=== PATIENT | male | born 1935 | race Caucasian/White ===

== ENCOUNTER → 2016-07-27 | Outpatient (CLI) | payer BC ==
[~2016-07-27] MED LIST: ASPEC81 PO; ATOR-22 PO; OMEG10007 PO; SPECTAB PO
[2016-07-27 14:23] LABS: CHOLESTEROL/HDL RATIO 3.5
== END | disposition home or self-care (01) ==
LOC: C.LABPVFM 08:37
PROVIDERS: ATTEND Nurse Practitioner
DX: R41.3 Other amnesia (principal); E55.9 Vitamin D deficiency, unspecified

== ENCOUNTER → 2016-09-28 | Outpatient (CLI) | payer BC ==
--- NOTE | 2016-09-28 10:02 | DIAGNOSTIC IMAGING REPORT ---
BILATERAL CAROTID DOPPLER STUDY HISTORY: R41.3 Memory loss or impairments COMPARISON: None. TECHNIQUE: Real-time, grayscale, and color Doppler sonography of the carotid arteries was performed. Imaging reviewed in the transverse and longitudinal planes. All measurements were calculated based on NASCET criteria. FINDINGS: Antegrade flow is seen in the bilateral vertebral arteries. The brachial pressures are hemodynamically similar. Mild calcified plaque within the bilateral carotid bifurcations. The peak systolic velocity within the right ICA is 79 cm/s. The right systolic ratio is 0.8. The peak systolic velocity within the left ICA is 71 cm/s. The left systolic ratio is 0.7. IMPRESSION: No hemodynamically significant stenosis seen within the carotid arteries. Electronically signed by: Joesph Oliva M.D. 09/28/2016 10:00 AM Dictated Date/Time: 09/28/2016 9:59 AM
== END | disposition home or self-care (01) ==
LOC: C.ULTR 09:15
PROVIDERS: ATTEND Nurse Practitioner
DX: R41.3 Other amnesia (principal); I65.23 Occlusion and stenosis of bilateral carotid arteries

== ENCOUNTER → 2016-12-14 | Outpatient (CLI) | payer BC ==
[2016-12-14 12:21] LABS: BLOOD UREA NITROGEN 13 mg/dl (7-18); BUN/CREATININE RATIO 9.1 (10-20); CALCIUM 8.7 mg/dl (8.5-10.1); CARBON DIOXIDE 23 mmol/L (21-32); CHLORIDE 107 mmol/L (98-107); GLUCOSE 95 mg/dl (70-99); POTASSIUM 4.6 mmol/L (3.5-5.1); SODIUM 139 mmol/L (136-145)
[2016-12-14 12:24] LABS: ALB/GLOB RATIO 0.9 (0.9-2); ALKALINE PHOSPHATASE 72 U/L (45-117); ALT/SGPT 45 U/L (12-78); AST/SGOT 27 U/L (15-37)
== END | disposition home or self-care (01) ==
LOC: C.LABPVFM 10:17
PROVIDERS: ATTEND Nurse Practitioner
DX: R73.01 Impaired fasting glucose (principal); R41.3 Other amnesia; E55.9 Vitamin D deficiency, unspecified

== ENCOUNTER → 2017-04-12 | Outpatient (CLI) | payer BC ==
[2017-04-12 14:13] LABS: ALT/SGPT 31 U/L (12-78); AST/SGOT 18 U/L (15-37); BLOOD UREA NITROGEN 16 mg/dl (7-18); BUN/CREATININE RATIO 11.4 (10-20); CALCIUM 8.9 mg/dl (8.5-10.1); CARBON DIOXIDE 22 mmol/L (21-32); CHLORIDE 107 mmol/L (98-107); CREATININE 1.37 mg/dl (0.60-1.40); GLUCOSE 98 mg/dl (70-99); POTASSIUM 4.3 mmol/L (3.5-5.1); SODIUM 137 mmol/L (136-145)
[2017-04-12 14:16] LABS: ALB/GLOB RATIO 0.9 (0.9-2); ALKALINE PHOSPHATASE 67 U/L (45-117); CHOLESTEROL 143 mg/dl (0-200); CHOLESTEROL/HDL RATIO 3.6; HDL CHOLESTEROL 40 mg/dl; LDL CHOLESTEROL CALCULATED 82 mg/dl; TRIGLYCERIDES 107 mg/dl (0-150); VERY LOW DENSITY LIPOPROT CALC 21 mg/dl
== END | disposition home or self-care (01) ==
LOC: C.LABPVFM 08:27
PROVIDERS: ATTEND Nurse Practitioner
DX: E78.5 Hyperlipidemia, unspecified (principal); R73.01 Impaired fasting glucose; E55.9 Vitamin D deficiency, unspecified

== ENCOUNTER → 2017-10-04 | Outpatient (CLI) | payer BC ==
[2017-10-04 13:20] LABS: ALBUMIN 3.5 gm/dl (3.4-5.0); ALT/SGPT 29 U/L (12-78); AST/SGOT 18 U/L (15-37); BLOOD UREA NITROGEN 18 mg/dl (7-18); CALCIUM 8.8 mg/dl (8.5-10.1); CARBON DIOXIDE 28 mmol/L (21-32); CREATININE 1.39 mg/dl (0.60-1.40); GLUCOSE 100 mg/dl (70-99); POTASSIUM 4.4 mmol/L (3.5-5.1); SODIUM 138 mmol/L (136-145)
[2017-10-04 13:22] LABS: ALKALINE PHOSPHATASE 72 U/L (45-117); CHOLESTEROL 142 mg/dl (0-200); LDL CHOLESTEROL CALCULATED 91 mg/dl; TOTAL PROTEIN 7.4 gm/dl (6.4-8.2)
== END | disposition home or self-care (01) ==
LOC: C.LABPVFM 10:07
PROVIDERS: ATTEND Nurse Practitioner
DX: N18.3 Chronic kidney disease, stage 3 (moderate) (principal); E78.5 Hyperlipidemia, unspecified; E55.9 Vitamin D deficiency, unspecified

== ENCOUNTER 2021-07-07 21:26 | Observation (INO) ==
--- NOTE | 2021-07-07 23:12 | Emergency Department Note ---
History of Present Illness General Chief complaint: Bleeding Stated complaint: BLEEDING FROM [facility] Time Seen by Provider: 07/07/21 22:41 History of Present Illness 85-year-old male presents to the ED with a chief complaint of hematuria. The noted the bleeding this morning. He has had bleeding intermittently through the day today. She called the PCP and he was started on some antibiotics. Because of ongoing bleeding, the patient was brought to the ED by the mary alice. The patient has dementia. He is not very cooperative. Nursing staff attempted to place a Mcginnis catheter prior to me seeing the patient as the patient had a bladder scan that revealed 400 cc of urine in the bladder. Home Medications Medication Instructions Recorded Confirmed Type aspirin 81 mg tablet,delayed 81 mg PO DAILY 04/15/18 07/07/21 History release ergocalciferol (vitamin D2) 1,250 2,000 unit PO DAILY 04/15/18 07/07/21 History mcg (50,000 unit) capsule (Vitamin D2) omega 1-epb-zej-fish oil 1,000 mg 1 cap PO DAILY 04/15/18 07/07/21 History (120 mg-180 mg) capsule (Fish Oil) multivitamin 1 tab PO DAILY 08/15/20 07/07/21 History B6 1.7 mg-folic 400 mcg-B12 2.4 1 cap PO DAILY 01/14/21 07/07/21 History rpw-qztpcc-rmexmgadhszh oral capsule (Neuriva Plus Brain Performance) atorvastatin 20 mg tablet 20 mg PO DAILY 07/07/21 07/07/21 History cephalexin 500 mg capsule 500 mg PO Q8H #21 cap 07/07/21 07/07/21 Rx donepezil 10 mg tablet 10 mg PO DAILY 07/07/21 07/07/21 History latanoprost 0.005 % eye drops 1 drp OPB DAILY 07/07/21 07/07/21 History Allergies Allergy/AdvReac Type Severity Reaction Status Date / Time prednisone Allergy Mild Agitated Verified 07/07/21 23:27 Past Med/Surg History Medical History Benign prostatic hyperplasia with urinary obstruction Diverticulosis Frequent urination at night Hyperlipidemia Pneumonia Supraventricular tachycardia, nonsustained Tubular adenoma Vitamin D deficiency Surgical History No history of previous surgery Family History Denies family history of Ovarian cancer Prostate cancer Myocardial infarction Breast cancer Colorectal cancer Social History Smoking Status: Former smoker Second Hand Exposure: No; Hx Alcohol Use: No Hx Substance Use: No Preferred Language: Zambian Communication Ability: Effective Hearing Ability: Hard of Hearing marital status: Current Living Situation: Spouse current occupational status: retired How many Children do You have: 6 Feels Safe at Home: Yes Childhood Exposure to Second-Hand Smoke: No caffeine: Yes Dental Care, Regularly: No Physical Activity Frequency: Daily Seatbelt Use: never Sunscreen Use: No Review of Systems A total of 10 systems reviewed and were otherwise negative Physical Exam Vital Signs Vital Signs - 24 hr 07/07/21 21:30 07/07/21 23:51 Temperature 36.1 C L Temperature Source Temporal Artery Scan Pulse Rate 98 H Respiratory Rate 20 18 Respiratory Effort / Characteristics Non-Labored Spontaneous Respiratory Depth Normal Blood Pressure 107/73 Blood Pressure Mean 84 Pulse Oximetry 96 96 Oxygen Delivery Method Room Air Room Air Sepsis New/Unexplained Change in Mental Status N/A Sepsis Action Taken by Nursing No Action Required CONSTITUTIONAL/VITAL SIGNS: Reviewed / noted above. GENERAL: Non-toxic in appearance. INTEGUMENTARY: Warm, dry, and [place]. HEAD: Normocephalic. EYES: without scleral icterus or trauma. ENT/OROPHARYNX: clear and moist. LYMPHADENOPATHY/NECK: Is supple without lymphadenopathy or meningismus. RESPIRATORY: Clear to auscultation bilaterally. No increased work of breathing. CARDIOVASCULAR: Regular rate and rhythm. GI/ABDOMEN: Soft and nontender. No organomegaly or pulsatile mass. EXTREMITIES: Warm and well perfused. BACK: No CVA tenderness. NEUROLOGICAL: Intact without focal deficits. PSYCHIATRIC: normal affect. MUSCULOSKELETAL: Normally developed with good muscle tone. TRIAGE NURSING DOCUMENTATION REVIEWED. Course Administered Medications Ciprofloxacin (Cipro / D5w) 400 mg in 200 mls @ 100 mls/hr IV NOW STA; Protocol Stop: 07/08/21 02:01 Last Admin: 07/08/21 00:07 Dose: 100 mls/hr Documented by: [id number] Medical Decision Making Differential Diagnosis Differential includes infection, bleeding, anemia, bleeding disorder, urinary retention, kidney failure Medical Records Attestation: I reviewed the patient's medical records. Home Medications Current Medication List: was personally reviewed by me Laboratory Data Attestation: I reviewed the patient's lab results. Result diagrams: 07/07/21 23:32 07/07/21 23:32 Lab Results 07/07/21 07/07/21 07/07/21 Range/Units 23:08 23:32 23:32 WBC 9.94 (4.8-10.8) K/uL RBC 3.88 L (4.7-6.1) M/uL Hgb 12.4 L (14.0-18.0) g/dL Hct 36.7 L (42-52) % MCV 94.6 (80-100) fL MCH 32.0 (25-34) pg MCHC 33.8 (32-36) g/dL RDW Std Deviation 46.1 (36.4-46.3) fL RDW Coeff of Sameera 13.4 (11.5-14.5) % Plt Count 207 (130-400) K/uL MPV 10.7 H (7.4-10.4) fL Immature Gran % (Auto) 0.1 % Neut % (Auto) 71.0 % Lymph % (Auto) 17.1 % Brule % (Auto) 10.9 % Eos % (Auto) 0.8 % Baso % (Auto) 0.1 % Neut # (Auto) 7.06 H (1.4-6.5) K/uL Lymph # (Auto) 1.70 (1.2-3.4) K/uL Brule # (Auto) 1.08 H (0.11-0.59) K/uL Eos # (Auto) 0.08 (0-0.5) K/uL Baso # (Auto) 0.01 (0-0.2) K/uL Immature Gran # (Auto) 0.01 (0.00-0.02) K/uL PT 11.0 (9.0-12.0) Seconds INR 1.1 (0.9-1.1) APTT 24.5 (21.0-31.0) Seconds PTT Ratio 0.9 Sodium (136-145) mmol/L Potassium (3.5-5.1) mmol/L Chloride (98-107) mmol/L Carbon Dioxide (21-32) mmol/L Anion Gap (3-11) BUN (6-23) mg/dl Creatinine (0.6-1.4) mg/dl Est Cr Clr Drug Dosing ml/min Est GFR ( Amer) ml/min Est GFR (Non-Af Amer) ml/min BUN/Creatinine Ratio (10-20) Glucose (70-99(Fasting)) mg/dl Calcium (8.5-10.1) mg/dl Total Bilirubin (0.2-1.0) mg/dl AST (13-39) U/L ALT (7-52) U/L Alkaline Phosphatase (34-104) U/L Total Protein (6.0-8.3) gm/dl Albumin (3.4-5.0) gm/dl Globulin (2.5-4.0) gm/dl Albumin/Globulin Ratio (0.9-2) Urine Color Red Urine Appearance Turbid A (Clear) Urine pH (4.5-7.5) Ur Specific [place] > 1.030 H (1.000-1.030) Urine Protein (Negative) Urine Glucose (UA) (Negative) Urine Ketones (Negative) Urine Blood (Negative) Urine Nitrite (Negative) Urine Bilirubin (Negative) Urine Urobilinogen (Negative) Ur Leukocyte Esterase (Negative) Urine RBC >30 H (0-4) /hpf Urine WBC >30 H (0-5) /hpf Ur Epithelial Cells 10-20 H (0-5) /lpf Urine Bacteria Negative (Negative) 07/07/21 Range/Units 23:32 WBC (4.8-10.8) K/uL RBC (4.7-6.1) M/uL Hgb (14.0-18.0) g/dL Hct (42-52) % MCV (80-100) fL MCH (25-34) pg MCHC (32-36) g/dL RDW Std Deviation (36.4-46.3) fL RDW Coeff of Sameera (11.5-14.5) % Plt Count (130-400) K/uL MPV (7.4-10.4) fL Immature Gran % (Auto) % Neut % (Auto) % Lymph % (Auto) % Brule % (Auto) % Eos % (Auto) % Baso % (Auto) % Neut # (Auto) (1.4-6.5) K/uL Lymph # (Auto) (1.2-3.4) K/uL Brule # (Auto) (0.11-0.59) K/uL Eos # (Auto) (0-0.5) K/uL Baso # (Auto) (0-0.2) K/uL Immature Gran # (Auto) (0.00-0.02) K/uL PT (9.0-12.0) Seconds INR (0.9-1.1) APTT (21.0-31.0) Seconds PTT Ratio Sodium 136 (136-145) mmol/L Potassium 4.2 (3.5-5.1) mmol/L Chloride 104 (98-107) mmol/L Carbon Dioxide 24 (21-32) mmol/L Anion Gap 8 (3-11) BUN 16 (6-23) mg/dl Creatinine 1.39 (0.6-1.4) mg/dl Est Cr Clr Drug Dosing 49.2 ml/min Est GFR ( Amer) 53.9 ml/min Est GFR (Non-Af Amer) 46.5 ml/min BUN/Creatinine Ratio 11.5 (10-20) Glucose 114 H (70-99(Fasting)) mg/dl Calcium 8.6 (8.5-10.1) mg/dl Total Bilirubin 0.6 (0.2-1.0) mg/dl AST 21 (13-39) U/L ALT 23 (7-52) U/L Alkaline Phosphatase 59 (34-104) U/L Total Protein 6.2 (6.0-8.3) gm/dl Albumin 3.7 (3.4-5.0) gm/dl Globulin 2.5 (2.5-4.0) gm/dl Albumin/Globulin Ratio 1.5 (0.9-2) Urine Color Urine Appearance (Clear) Urine pH (4.5-7.5) Ur Specific [place] (1.000-1.030) Urine Protein (Negative) Urine Glucose (UA) (Negative) Urine Ketones (Negative) Urine Blood (Negative) Urine Nitrite (Negative) Urine Bilirubin (Negative) Urine Urobilinogen (Negative) Ur Leukocyte Esterase (Negative) Urine RBC (0-4) /hpf Urine WBC (0-5) /hpf Ur Epithelial Cells (0-5) /lpf Urine Bacteria (Negative) MDM Narrative 85-year-old male presents with hematuria. On evaluation it appears that the patient has urinary retention with 400 cc of urine in the bladder on bladder scan. Attempts to place a Mcginnis catheter failed including attempts by nursing staff and myself. Coud catheter was attempted as well. Patient is not exactly cooperative as he has dementia. Urology was consulted. They were unable to pass a coud catheter as well. They are going to take the patient to the OR for cystoscopy and catheter placement. They would like the patient to be observed in the hospital following this to monitor the patient's symptoms. The patient CBC and chemistry panel here was unremarkable. Urine did not show obvious infection. I did speak with hospitalist service about the patient as well. Impression & Plan Hematuria, Urinary retention Discharge Plan Visit Data Chief Complaint: Bleeding Stated Complaint: BLEEDING FROM [facility] ED Provider: Raúl Ritter Discharge Problem: Hematuria, Urinary retention Patient Disposition: Being Evaluated by Hospitalist Forms Stand Alone Forms: My [facility] Prescriptions Prescriptions: No Action cephalexin 500 mg capsule 500 mg PO Q8H Qty: 21 RF: 0 Neuriva Plus Brain Performance 1.7 mg-400 mcg- 2.4 mcg capsule 1 cap PO DAILY RF: 0 multivitamin Tablet 1 tab PO DAILY RF: 0 aspirin 81 mg Tablet,Delayed Release (Dr/Ec) 81 mg PO DAILY RF: 0 ergocalciferol (vitamin D2) [Vitamin D2] 50,000 unit Capsule 2,000 unit PO DAILY RF: 0 omega 3-jou-jkg-fish oil [Fish Oil] 1,000 mg (120 mg-180 mg) Capsule 1 cap PO DAILY RF: 0 latanoprost 0.005 % drops 1 drp OPB DAILY RF: 0 atorvastatin 20 mg tablet 20 mg PO DAILY RF: 0 donepezil 10 mg tablet 10 mg PO DAILY RF: 0 Referrals Referrals: Yuni Elmore CRNP [Primary Care Provider] - Discharge Problem: Hematuria Qualifiers: Hematuria type: gross Qualified Code(s): R31.0 - Gross hematuria
[2021-07-07 23:41] LABS: Appearance Urine Turbid (Clear); Color Urine Red
[2021-07-07 23:42] LABS: Specific Gravity Urine > 1.030 (1.000-1.030)
[2021-07-07 23:45] LABS: Bacteria Urine Negative (Negative); RBC Urine >30 /hpf (0-4); WBC Urine >30 /hpf (0-5)
[2021-07-07 23:55] LABS: Basophils # (auto) 0.01 K/uL (0-0.2); Basophils % (auto) 0.1 %; Eosinophils # (auto) 0.08 K/uL (0-0.5); Eosinophils % (auto) 0.8 %; Hematocrit (blood only) 36.7 % (42-52); Hemoglobin 12.4 g/dL (14.0-18.0); Immature Granulocytes # (auto) 0.01 K/uL (0.00-0.02); Immature Granulocytes % (auto) 0.1 %; Lymphocytes % (auto) 17.1 %; Mean Corpuscular Hgb Conc 33.8 g/dL (32-36); Mean Corpuscular Volume 94.6 fL (80-100); Mean Platelet Volume 10.7 fL (7.4-10.4); Monocytes # (auto) 1.08 K/uL (0.11-0.59); Monocytes % (auto) 10.9 %; Neutrophils # (auto) 7.06 K/uL (1.4-6.5); Platelet Count 207 K/uL (130-400); RDW Coefficient of Variation 13.4 % (11.5-14.5); RDW Standard Deviation 46.1 fL (36.4-46.3); Red Blood Count 3.88 M/uL (4.7-6.1); White Blood Count 9.94 K/uL (4.8-10.8)
[2021-07-08] MEDS ORDERED: CIPROFLOXACIN / D5W 400 MG/200 ML BAG IV STA (00:02)
[2021-07-08 00:07] LABS: INR 1.1 (0.9-1.1); Partial Thromboplastin Ratio 0.9; Partial Thromboplastin Time 24.5 Seconds (21.0-31.0)
[2021-07-08 00:12] LABS: Albumin Globulin Ratio 1.5 (0.9-2); Albumin Level 3.7 gm/dl (3.4-5.0); BUN Creatinine Ratio 11.5 (10-20); Bilirubin,Total 0.6 mg/dl (0.2-1.0); Calcium 8.6 mg/dl (8.5-10.1); Creatinine Clr Calc Pharmacy 49.2 ml/min; Est GFR (African American) 53.9 ml/min; Est GFR (Non-African American) 46.5 ml/min; Globulin 2.5 gm/dl (2.5-4.0); Potassium 4.2 mmol/L (3.5-5.1); Total Protein 6.2 gm/dl (6.0-8.3)
--- NOTE | 2021-07-08 00:14 | Urology Consultation ---
Date of Consultation July 08, 2021 Assessment & Plan (1) Hematuria: Due to the patient's clinical presentation and inability to pass a Mcginnis catheter we will proceed as follows: Patient n.p.o. for the present time Withhold IV fluids for the present time as we do not want to produce excess urine until Mcginnis catheter can be placed We will administer preoperative antibiotics in form of Cipro Discussed case with my attending physician Dr. Pino and we will plan on performing a cystoscopy this evening. At time of cystoscopy additional interventions may be undertaken including but not limited to urethral dilation, catheter placement, bladder fulguration, and additional procedures that are deemed necessary I discussed the above with the patient's who has provided consent for the procedure as the patient has underlying dementia. She does agree to proceed. Recommend using only SCDs for DVT prevention. Would avoid chemical means for the present time due to noted hematuria Additional recommendations will be made based on findings at time of cystoscopy (2) Urinary retention: Supervising Physician Co-Signing Physician Notes I have seen and examined Mr. Castañeda and agree with the above documentation. 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 I discussed the procedure of cystoscopy, urethral dilation, catheter placement, clot evacuation, possible fulguration or resection of bladder tumor with his (POA), as well as the anticipated risks and benefits. She expressed understanding and we will plan for cystoscopy and catheter placement tonight. History of Present Illness Reason for Consultation: 1. Hematuria 2. Urinary retention History of Present Illness This is an 85-year-old male who presented to [facility] with his . Should be noted that the patient has underlying dementia and therefore could not contribute to the historical information. The history was obtained from discussion with the treating emergency room staff, review of re cords, and discussion with the patient's who is at bedside Patient's reports that for approximately 1-1/2 days the patient has been urinating blood with passage of some small blood clots. They were seen by the patient's primary care team who felt that the patient may have an underlying urinary tract infection and therefore they placed the patient on Keflex. Since being seen by the patient's primary care team the patient has had the urge to urinate frequently (nearly every 10 to 15 minutes) with passage of very little bloody urine. Because of this problem the patient did present to the emergency department. According to the patient's he has not had anything to eat or drink since approximately 5 to 6:00 PM on 07/07/2021. She says he has not had any nausea or vomiting. He has not had any fevers, shakes, chills. Patient's said they have a remote establishment with [facility] but is not seen them in quite some time. She is unsure if he has had any urologic procedures. This evening in the emergency department multiple attempts were made by numerous staff members to place Mcginnis catheters of varying size and configuration with out success. Because of this urology was contacted. In the emergency department patient did have labs which I independently reviewed. A CBC revealed white blood cell count was normal. His hemoglobin and hematocrit were 12.4 36.7. Platelet count was noted to be within normal range. Coagulation studies and chemistry profile are pending at the time of this dictation. A urinalysis was performed that showed greater than 30 white blood cells per high-power field. The urine was noted to be turbid. A COVID test was performed as noted be pending. At the time of my interview the patient was in no distress but he did appear to be slightly uncomfortable due to the inability to urinate and fully empty his bladder. Allergies Allergy/AdvReac Type Severity Reaction Status Date / Time prednisone Allergy Mild Agitated Verified 07/07/21 23:27 Home Medications Medication Instructions Recorded Confirmed Type aspirin 81 mg tablet,delayed 81 mg PO DAILY 04/15/18 07/07/21 History release ergocalciferol (vitamin D2) 1,250 2,000 unit PO DAILY 04/15/18 07/07/21 History mcg (50,000 unit) capsule (Vitamin D2) omega 4-djq-qss-fish oil 1,000 mg 1 cap PO DAILY 04/15/18 07/07/21 History (120 mg-180 mg) capsule (Fish Oil) multivitamin 1 tab PO DAILY 08/15/20 07/07/21 History B6 1.7 mg-folic 400 mcg-B12 2.4 1 cap PO DAILY 01/14/21 07/07/21 History oar-qfmhyb-irplqhzhjlrc oral capsule (Neuriva Plus Brain Max-Wellness) atorvastatin 20 mg tablet 20 mg PO DAILY 07/07/21 07/07/21 History cephalexin 500 mg capsule 500 mg PO Q8H #21 cap 07/07/21 07/07/21 Rx donepezil 10 mg tablet 10 mg PO DAILY 07/07/21 07/07/21 History latanoprost 0.005 % eye drops 1 drp OPB DAILY 07/07/21 07/07/21 History Patient History Medical History Benign prostatic hyperplasia with urinary obstruction Diverticulosis Frequent urination at night Hyperlipidemia Pneumonia Supraventricular tachycardia, nonsustained Tubular adenoma Vitamin D deficiency Surgical History No history of previous surgery Family History Denies family history of Ovarian cancer Prostate cancer Myocardial infarction Breast cancer Colorectal cancer Social History Smoking Status: Former smoker Second Hand Exposure: No; Hx Alcohol Use: No Hx Substance Use: No Preferred Language: Vietnamese Communication Ability: Effective Hearing Ability: Hard of Hearing marital status: Current Living Situation: Spouse current occupational status: retired How many Children do You have: 6 Feels Safe at Home: Yes Childhood Exposure to Second-Hand Smoke: No caffeine: Yes Dental Care, Regularly: No Physical Activity Frequency: Daily Seatbelt Use: never Sunscreen Use: No Review of Systems Review of Systems: Review of systems is as noted in the history of present illness. Full review of systems was attempted but unable to be completed due to the underlying clinical condition of dementia the patient has. Physical Exam Constitutional: well developed and well nourished; no acute distress Eyes: Corrective lenses and use ENMT: Ears: no hearing impairment Neck: trachea midline Respiratory: normal respiratory effort; no respiratory distress and no labored breathing Cardiovascular: Rate/Rhythm: regular rate and regular rhythm Gastrointestinal (Abdomen): Abdomen is soft and nondistended. No pain is noted with palpation Musculoskeletal: No calf tenderness Skin: no rashes Neurologic: moves all extremities Psychiatric: Patient is alert to person only he is confused to place and time Results & Data ([facility]) Vital Signs (Past 12 Hours) Vital Signs Temp Pulse Resp BP Pulse Ox 07/07/21 23:51 18 96 07/07/21 21:30 36.1 C L 98 H 20 107/73 96 PG Care Time/CCT Total # of Minutes Spent Total Time Spent with Patient: Total time spent is greater than 50% in coordination of care (as documented) at patient's floor/unit and/or counseling patient: Coding Level of Care Code 20269 Initial Inpt Care Lvl 2 Diagnoses Hematuria R31.0 Hematuria type: gross Urinary retention R33.9 (1) Hematuria Hematuria type: gross Qualified Code(s): R31.0 - Gross hematuria
--- NOTE | 2021-07-08 01:00 | Anesthesiology Consultation ---
Date of Service July 08, 2021 Assessment & Plan (1) Encounter for pre-operative examination: Chart Review Chart Review: Acceptable Risk for Surgery and Patient NOT seen in Pre Admission Testing Consults Requested none History Surgery Operation Date: 07/08/21 01:30 Proposed Procedures p Cystoscopy - Navin Pino MD Height/Weight Height: 6 ft 1 in Weight: 96.2 kg Allergies Allergy/AdvReac Type Severity Reaction Status Date / Time prednisone Allergy Mild Agitated Verified 07/07/21 23:27 Medications Home Medications Medication Instructions Recorded Confirmed Last Taken aspirin 81 mg tablet,delayed 81 mg PO DAILY 04/15/18 07/07/21 Unknown release ergocalciferol (vitamin D2) 1,250 2,000 unit PO DAILY 04/15/18 07/07/21 Unknown mcg (50,000 unit) capsule (Vitamin D2) omega 2-rom-wnr-fish oil 1,000 mg 1 cap PO DAILY 04/15/18 07/07/21 Unknown (120 mg-180 mg) capsule (Fish Oil) multivitamin 1 tab PO DAILY 08/15/20 07/07/21 Unknown B6 1.7 mg-folic 400 mcg-B12 2.4 1 cap PO DAILY 01/14/21 07/07/21 Unknown lne-smbqrn-hxdosxivooib oral capsule (Neuriva Plus Brain Performance) atorvastatin 20 mg tablet 20 mg PO DAILY 07/07/21 07/07/21 Unknown cephalexin 500 mg capsule 500 mg PO Q8H #21 cap 07/07/21 07/07/21 07/07/21 16:30 donepezil 10 mg tablet 10 mg PO DAILY 07/07/21 07/07/21 Unknown latanoprost 0.005 % eye drops 1 drp OPB DAILY 07/07/21 07/07/21 Unknown Active Medications Generic Name Dose Route Start Last Admin Trade Name Freq PRN Reason Stop Dose Admin Ciprofloxacin 400 mg in 200 mls @ 100 mls/hr 07/08/21 00:02 07/08/21 00:07 Cipro / D5w IV 07/08/21 02:01 100 mls/hr NOW STA Administration Protocol Past Medical History Medical History Benign prostatic hyperplasia with urinary obstruction Diverticulosis Frequent urination at night Hyperlipidemia Pneumonia Supraventricular tachycardia, nonsustained Tubular adenoma Vitamin D deficiency Past Family History Family History Denies family history of Ovarian cancer Prostate cancer Myocardial infarction Breast cancer Colorectal cancer Past Surgical History Surgical History No history of previous surgery Social History Smoking Status: Former smoker Hx Alcohol Use: No Hx Substance Use: No Physical Exam Vital Signs Last Vital Signs Temp 97.0 F L 07/07/21 21:30 Pulse 74 07/08/21 00:39 Resp 16 07/08/21 00:39 BP 119/71 07/08/21 00:39 Pulse Ox 96 07/08/21 00:39 Testing Laboratory Results 07/07/21 23:32 07/07/21 23:32 PT 11.0 Seconds (9.0-12.0) 07/07/21 23:32 INR 1.1 (0.9-1.1) 07/07/21 23:32 APTT 24.5 Seconds (21.0-31.0) 07/07/21 23:32 Urine Color Red 07/07/21 23:08 Urine Appearance Turbid (Clear) A 07/07/21 23:08 Urine pH (4.5-7.5) 07/07/21 23:08 Ur Specific [place] > 1.030 (1.000-1.030) H 07/07/21 23:08 Urine Protein (Negative) 07/07/21 23:08 Urine Glucose (UA) (Negative) 07/07/21 23:08 Urine Ketones (Negative) 07/07/21 23:08 Urine Nitrite (Negative) 07/07/21 23:08 Ur Leukocyte Esterase (Negative) 07/07/21 23:08 Urine RBC >30 /hpf (0-4) H 07/07/21 23:08 Urine WBC >30 /hpf (0-5) H 07/07/21 23:08 Ur Epithelial Cells 10-20 /lpf (0-5) H 07/07/21 23:08
[2021-07-08] MEDS ORDERED: SUCCINYLCHOLINE 100MG/5ML SYR IV ONE (01:03)
[2021-07-08] MEDS ORDERED: LIDOCAINE 2% 20 MG/ML 5 ML SYR IV ONE (01:03)
[2021-07-08] MEDS ORDERED: fentaNYL citrate 100 MCG/2 ML VIAL ONE (01:03)
[2021-07-08] MEDS ORDERED: PROPOFOL IV EMULSION 10 MG/ML 20 ML VIAL IV ONE (01:03)
[2021-07-08] MEDS ORDERED: LABETALOL HCL IV 5 MG/ML 20ML IV PRN (01:07)
[2021-07-08] MEDS ORDERED: ATROPINE SULFATE 0.1 MG/ML 10ML SYR IV PRN (01:07)
[2021-07-08] MEDS ORDERED: ONDANSETRON INJ 2 MG/ML 2 ML VIAL IV PRN ×2 (01:07→03:45)
[2021-07-08] MEDS ORDERED: ePHEDrine sulfate 50 MG/ML AMP IV PRN (01:07)
--- NOTE | 2021-07-08 01:18 | History & Physical Report ---
Date of Service July 08, 2021 Assessment & Plan (1) Hematuria: Plan: Gross hematuria/urinary retention- Patient being taken to the OR by urology Dr. Pino N.p.o. until recovery Follow urine culture and sensitivity Given Cipro 40 mg IV in the ED Ceftriaxone 2 g IV daily LR at 125 mils per hour (2) Urinary retention: Plan: Mcginnis cath to be placed in the OR Start tamsulosin 0.4 mg at bedtime (3) UTI (urinary tract infection): Plan: 12 urine culture and sensitivity (4) CKD (chronic kidney disease), stage III: Plan: Creatinine 1.39 upon admission, with range 1.32-1.44 Follow serial laboratories (5) Impaired fasting glucose: Plan: Glucose 114 upon admission Would not perform Accu-Cheks unless elevation on routine a.m. labs (6) Vitamin D deficiency: Plan: Continue vitamin D 2000 international units daily (7) Hyperlipidemia: Plan: Continue atorvastatin 20 mg daily (8) Dementia: Plan: Continue donepezil 10 mg daily and aspirin 81 mg daily (9) Glaucoma: Plan: Continue latanoprost History of Present Illness Chief Complaint: The patient presented to the emergency department due to gross hematuria Primary Care Provider: CHAY Brooks The patient is an 85-year-old male with a past medical history including urinary tract infection, CKD stage III, impaired fasting glucose, vitamin D deficiency, hyperlipidemia, dementia and glaucoma. Patient presented to the emergency department due to his noticing blood when he urinated. This happened intermittently throughout the day. His called the PCP, and was started on antibiotics, however, because of ongoing bleeding, patient was brought to the ED by his this evening. There multiple times in ED to past Mcginnis catheter, however, they were unsuccessful, and urology Dr. Pino came to the hospital, and was taken the patient to the OR. Allergies Allergy/AdvReac Type Severity Reaction Status Date / Time prednisone Allergy Mild Agitated Verified 07/07/21 23:27 Home Medications Medication Instructions Recorded Confirmed Type aspirin 81 mg tablet,delayed 81 mg PO DAILY 04/15/18 07/07/21 History release ergocalciferol (vitamin D2) 1,250 2,000 unit PO DAILY 04/15/18 07/07/21 History mcg (50,000 unit) capsule (Vitamin D2) omega 5-chc-nyf-fish oil 1,000 mg 1 cap PO DAILY 04/15/18 07/07/21 History (120 mg-180 mg) capsule (Fish Oil) multivitamin 1 tab PO DAILY 08/15/20 07/07/21 History B6 1.7 mg-folic 400 mcg-B12 2.4 1 cap PO DAILY 01/14/21 07/07/21 History mge-zuuzpt-blbzihkpukvh oral capsule (Neuriva Plus Brain Performance) atorvastatin 20 mg tablet 20 mg PO DAILY 07/07/21 07/07/21 History cephalexin 500 mg capsule 500 mg PO Q8H #21 cap 07/07/21 07/07/21 Rx donepezil 10 mg tablet 10 mg PO DAILY 07/07/21 07/07/21 History latanoprost 0.005 % eye drops 1 drp OPB DAILY 07/07/21 07/07/21 History Past Med/Surg History Medical History (Updated 07/08/21 @ 04:45 by Kraig Wilson MD) Benign prostatic hyperplasia with urinary obstruction Diverticulosis Frequent urination at night Glaucoma Hyperlipidemia Pneumonia Supraventricular tachycardia, nonsustained Tubular adenoma Vitamin D deficiency Surgical History No history of previous surgery Family History Denies family history of Ovarian cancer Prostate cancer Myocardial infarction Breast cancer Colorectal cancer Social History Smoking Status: Former smoker Second Hand Exposure: No; Hx Alcohol Use: No Hx Substance Use: No Preferred Language: Romanian Communication Ability: Effective Hearing Ability: Hard of Hearing marital status: Current Living Situation: Spouse current occupational status: retired How many Children do You have: 6 Feels Safe at Home: Yes Childhood Exposure to Second-Hand Smoke: No caffeine: Yes Dental Care, Regularly: No Physical Activity Frequency: Daily Seatbelt Use: never Sunscreen Use: No Review of Systems Review of Systems: The patient denies chest pain, palpitations, shortness of breath, dyspnea on exertion, cough, lower extremity swelling, sore throat, fevers, chills, sweats, nausea, vomiting, diarrhea , constipation, blood in stool, dysuria, lightheadedness, dizziness, headache, memory loss, loss of consciousness, rash, abnormal bruising or bleeding, imbalance, focal weakness, numbness or tingling in arms or legs, generalized arthralgias or myalgias, back or neck pain, or night sweats. The review of systems is otherwise negative other than for that already noted above, and at least 10 systems have been reviewed. Physical Exam Physical Exam: The patient is awake, alert and oriented 3, well developed and well nourished, normocephalic and atraumatic, lying in bed and in no acute distress. HEENT--PERRL, EOMI, mucous membranes and oropharynx dry. Neck--supple. No JVD. No bruits. Thyroid normal, trachea midline, no adenopathy. Heart--normal S1 and S2. No murmurs, rubs or gallops. Lungs--clear bilaterally, no respiratory distress, no accessory muscle use. Abdomen--normal bowel sounds and soft. Suprapubic discomfort with pressure. Extremities--no cyanosis or clubbing. No edema. Dermatologic--normal skin turgor, normal color, no abnormal lymph nodes, no rash. Neurologic--cranial nerves II through XII grossly intact. Rheumatologic--normal range of motion. Psychiatric--normal affect. Results & Data Results & Data ([facility]) Vital Signs (Past 12 Hours) Vital Signs Temp Pulse Pulse Resp BP BP Pulse Ox 07/08/21 01:06 74 16 115/62 97 07/08/21 00:39 74 16 119/71 96 07/07/21 23:51 18 96 07/07/21 21:30 36.1 C L 98 H 20 107/73 96 Laboratory Results Laboratory Results WBC 9.94 K/uL (4.8-10.8) 07/07/21 23:32 RBC 3.88 M/uL (4.7-6.1) L 07/07/21 23:32 Hgb 12.4 g/dL (14.0-18.0) L 07/07/21 23:32 Hct 36.7 % (42-52) L 07/07/21 23:32 MCV 94.6 fL (80-100) 07/07/21 23:32 MCH 32.0 pg (25-34) 07/07/21 23:32 MCHC 33.8 g/dL (32-36) 07/07/21 23:32 RDW Std Deviation 46.1 fL (36.4-46.3) 07/07/21 23:32 RDW Coeff of Sameera 13.4 % (11.5-14.5) 07/07/21 23:32 Plt Count 207 K/uL (130-400) 07/07/21 23:32 MPV 10.7 fL (7.4-10.4) H 07/07/21 23:32 Immature Gran % (Auto) 0.1 % 07/07/21 23:32 Neut % (Auto) 71.0 % 07/07/21 23:32 Lymph % (Auto) 17.1 % 07/07/21 23:32 [place] % (Auto) 10.9 % 07/07/21 23:32 Eos % (Auto) 0.8 % 07/07/21:32 Baso % (Auto) 0.1 % 07/07/21 23:32 Neut # (Auto) 7.06 K/uL (1.4-6.5) H 07/07/21 23:32 Lymph # (Auto) 1.70 K/uL (1.2-3.4) 07/07/21 23:32 [place] # (Auto) 1.08 K/uL (0.11-0.59) H 07/07/21 23:32 Eos # (Auto) 0.08 K/uL (0-0.5) 07/07/21 23:32 Baso # (Auto) 0.01 K/uL (0-0.2) 07/07/21 23: Immature Gran # (Auto) 0.01 K/uL (0.00-0.02) 07/07/21 23:32 PT 11.0 Seconds (9.0-12.0) 07/07/21 23:32 INR 1.1 (0.9-1.1) 07/07/21:32 APTT 24.5 Seconds (21.0-31.0) 07/07/21 23:32 PTT Ratio 0.9 07/07/21 23:32 Sodium 136 mmol/L (136-145) 07/07/21 23:32 Potassium 4.2 mmol/L (3.5-5.1) 07/07/21 23:32 Chloride 104 mmol/L (98-107) 07/07/21 23:32 Carbon Dioxide 24 mmol/L (21-32) 07/07/21 23:32 Anion Gap 8 (3-11) 07/07/21 23:32 BUN 16 mg/dl (6-23) 07/07/21 23:32 Creatinine 1.39 mg/dl (0.6-1.4) 07/07/21 23:32 Est Cr Clr Drug Dosing 49.2 ml/min 07/07/21 23:32 Est GFR ( Amer) 53.9 ml/min 07/07/21 23:32 Est GFR (Non-Af Amer) 46.5 ml/min 07/07/21 23:32 BUN/Creatinine Ratio 11.5 (10-20) 07/07/21 23:32 Glucose 114 mg/dl (70-99(Fasting)) H 07/07/21 23:32 Calcium 8.6 mg/dl (8.5-10.1) 07/07/21 23: Total Bilirubin 0.6 mg/dl (0.2-1.0) 07/07/21 23:32 AST 21 U/L (13-39) 07/07/21 23:32 ALT 23 U/L (7-52) 07/07/21 23:32 Alkaline Phosphatase 59 U/L (34-104) 07/07/21 23:32 Total Protein 6.2 gm/dl (6.0-8.3) 07/07/21 23:32 Albumin 3.7 gm/dl (3.4-5.0) 07/07/21 23: Globulin 2.5 gm/dl (2.5-4.0) 07/07/21 23:32 Albumin/Globulin Ratio 1.5 (0.9-2) 07/07/21 23:32 Urine Color Red 07/07/21 23:08 Urine Appearance Turbid (Clear) A 07/07/21 23:08 Urine pH (4.5-7.5) 07/07/21 23: Ur Specific [place] > 1.030 (1.000-1.030) H 07/07/21 23:08 Urine Protein (Negative) 07/07/21 23:08 Urine Glucose (UA) (Negative) 07/07/21 23:08 Urine Ketones (Negative) 07/07/21 23:08 Urine Blood (Negative) 07/07/21 23:08 Urine Nitrite (Negative) 07/07/21 23:08 Urine Bilirubin (Negative) 07/07/21 23:08 Urine Urobilinogen (Negative) 07/07/21 23:08 Ur Leukocyte Esterase (Negative) 07/07/21 23:08 Urine RBC >30 /hpf (0-4) H 07/07/21 23:08 Urine WBC >30 /hpf (0-5) H 07/07/21 23:08 Ur Epithelial Cells 10-20 /lpf (0-5) H 07/07/21 23:08 Urine Bacteria Negative (Negative) 07/07/21 23:08 SARS-CoV-2, RNA, NAAT NEGATIVE (NEGATIVE) 07/08/21 00:00 Code Status & VTE Plan Code Status Full code VTE Prophylaxis Plan VTE Prophylaxis will be ordered: Yes PG Care Time/CCT Total # of Minutes Spent Total Time Spent with Patient: Total time spent is greater than 50% in coordination of care (as documented) at patient's floor/unit and/or counseling patient: Coding Level of Care Code 91914 Initial Inpt Care Lvl 3 Diagnoses Hematuria R31.0 Hematuria type: gross Urinary retention R33.9 UTI (urinary tract infection) N39.0 CKD (chronic kidney disease), stage III N18.3 Impaired fasting glucose R73.01 Vitamin D deficiency E55.9 Hyperlipidemia E78.5 Dementia F03.90 Glaucoma H40.9 (1) Hematuria Hematuria type: gross Qualified Code(s): R31.0 - Gross hematuria
--- NOTE | 2021-07-08 02:36 | Operative Report ---
PG Post Operative Report Pre & Post Diagnosis Operation Date: 07/08/21 01:30 Pre-Op Diagnosis: Gross Hematuria Urinary Retention Post-Op Diagnosis: Gross Hematuria Urinary Retention I identified the patient and participated in the time-out.: Yes Procedure Operation Date: 07/08/21 01:30 Actual Procedures p Cystoscopy, Clot Evacutaion and Fulguration - Navin Pino MD Surgeon Navin Pino MD Antenna Design Engineer none Estimated Blood Loss 10 Findings See Below Firm prostate, somewhat challenging to bypass with the cystoscope. No focal strictures appreciated. Bladder was full of old clot. Clot evacuation was performed and a couple friable areas were cauterized with the bipolar electrode. 22 Nauruan three-way Mcginnis catheter left in place. Specimens None Drains 22 Nauruan three-way Mcginnis catheter. Third port clamped. Anesthesia Type General Complications none Disposition Disposition: Recovery Room Indications This is an 85-year-old male who presented to the emergency department on 07/07/2021 with urinary retention. Multiple catheterizations were attempted but were unsuccessful. Urology was consulted for assistance with catheter placement. Due to concern for potential stricture and large amount of clot, as well as poor patient tolerance at the bedside, he is being brought to the OR for catheter placement. Description of Procedure The patient was identified in the holding area and informed consent was confirmed. He was taken to the operating room where general anesthesia was initiated. He was placed in the dorsal lithotomy position with all pressure points appropriately padded. He was prepped and draped in the usual sterile fashion and a preoperative timeout was performed. A well-lubricated cystoscope was inserted per urethra and panendoscopy was performed. The pendulous urethra was normal with no strictures or mucosal abnormalities. The prostate was enlarged and had an appearance of nodular regrowth. In the posterior wall of the prostatic urethra there appeared to be a tear, suspicious for a false passage from prior catheter attempts. The cystoscope was advanced to the bladder, which was full of clot. Using a Nadia syringe, the clot was evacuated from the bladder. Approximately 1 cup of clot was removed. The bladder was then surveyed. No tumors were identified. There were a couple friable patches on the trigone and bladder neck. The resectoscope was inserted and electrocautery was used with the bipolar button to fulgurate any areas. There were some patches of bleeding within the prostatic urethra as well, which were cauterized. At this point, there was good hemostasis within the bladder at low volume. A sensor wire was advanced through the sheath of the resectoscope, and an appropriate amount was coiled within the bladder. Position was confirmed with x-ray. Over the wire a 22 Nauruan, three-way hematuria catheter was advanced. The balloon was inflated with 10 mL of normal saline and the catheter was attached to gravity drainage. The urine was overall clear, so the third port was plugged. CBI was not initiated, but remains an option if he redevelops hematuria. The patient was then awakened from anesthesia and was brought to the PACU in stable condition. I attest to the content of the Intraoperative Record and any orders documented therein. Any exceptions are noted below.
--- NOTE | 2021-07-08 03:11 | Anesthesiology Progress Note ---
Date of Service July 08, 2021 Anesthesia Post Procedure Vital Signs Vital Signs: Temp Pulse Pulse Resp BP BP BP 07/08/21 03:05 66 20 144/58 H 07/08/21 02:55 70 20 122/64 07/08/21 02:45 71 15 122/63 07/08/21 02:37 97.5 F L 64 12 123/73 07/08/21 01:06 74 16 115/62 07/08/21 00:39 74 16 119/71 07/07/21 23:51 18 07/07/21 21:30 97.0 F L 98 H 20 107/73 Pulse Ox 07/08/21 03:05 97 07/08/21 02:55 99 07/08/21 02:45 98 07/08/21 02:37 99 07/08/21 01:06 97 07/08/21 00:39 96 07/07/21 23:51 96 07/07/21 21:30 96 Transfer of Care Handoff Completed per policy Notes Mental Status: alert / awake / arousable and participated in evaluation Patient Amnestic to Procedure: Yes Nausea / Vomiting: adequately controlled Pain: adequately controlled Airway Patency, RR, SpO2: stable & adequate BP & HR: stable & adequate Hydration State: stable & adequate Anesthetic Complications: no major complications apparent and Pt Satisfied with anesthetic care
[2021-07-08] MEDS ORDERED: ACETAMINOPHEN 325 MG TAB PO PRN (03:45)
[2021-07-08] MEDS: LACTATED RINGER'S 1,000 ML IV SCH ×3 (05:47→21:27)
--- NOTE | 2021-07-08 08:15 | Urology Progress Note ---
Date of Service July 08, 2021 Assessment & Plan (1) Urinary retention: (2) Hematuria: Plan: 85yo M admitted with gross hematuria and urinary retention - Reviewed plan of care with Dr. Pino. - Pt is s/p Cystoscopy, Clot evacuation, and fulguration earlier today with Dr. Pino. - Afebrile, VSS. - Labs reviewed - White count and creatinine stable on labs yesterday, Hemoglobin 12.5 - Continue to trend - Urine culture pending, continues on IV Ceftriaxone. - Bowen catheter intact, draining light red urine without clot. - Maintain Bowen catheter for now. Pt had a small false passage in the prostate and we would like to allow more time for healing prior to additional catheter attempts in the event he would fail a TOV. - OK to gently hand irrigate Bowen catheter as needed for clots, retention, suprapubic pain. - Recommend continuing Flomax and consider addition of 5-CIPRIANO such as Finasteride for dual therapy. - Continue supportive care, antibiotic therapy, and close monitoring. - Will continue to follow. Admission and Anticipated Discharge Date Admission Date: July 08, 2021 Supervising Physician Co-Signing Physician Notes I agree with the above documentation. Maintain bowen catheter for now to allow urethra to heal. Can hand-irrigate if catheter becomes clogged. Subjective Pt examined at bedside this morning. Awake, resting in bed on arrival. Hx of dementia, oriented to self only. Patient on 1:1 d/t being combative and non-compliant per nursing. No acute distress. No fevers. Bowen intact, draining light red urine. No clots noted. Review of Systems Review of Systems: Unobtainable due to cognitive status Physical Exam Constitutional: well developed and well nourished; no acute distress Respiratory: normal respiratory effort; no labored breathing and no audible wheezes Gastrointestinal (Abdomen): Inspection/Auscultation: abdomen normal to inspection; abdomen not distended Musculoskeletal: Head/Neck/Chest: normocephalic Skin: No visible rashes or lesions to exposed skin areas Neurologic: moves all extremities, awake and + confused Psychiatric: Orientation: alert and oriented to person Genitourinary: Bowen catheter intact, draining light red urine. No clots noted. Results & Data ([facility]) Vital Signs (Past 12 Hours) Vital Signs Temp Pulse Pulse Resp BP BP BP 07/08/21 06:58 85 07/08/21 06:17 07/08/21 04:18 72 07/08/21 03:59 36.5 C 64 22 120/67 07/08/21 03:15 36.3 C L 67 21 125/79 07/08/21 03:05 66 20 144/58 H 07/08/21 02:55 70 20 122/64 07/08/21 02:45 71 15 122/63 07/08/21 02:37 36.4 C L 64 12 123/73 07/08/21 01:06 74 16 115/62 07/08/21 00:39 74 16 119/71 07/07/21 23:51 18 07/07/21 21:30 36.1 C L 98 H 20 107/73 Pulse Ox 07/08/21 06:58 07/08/21 06:17 97 07/08/21 04:18 07/08/21 03:59 97 07/08/21 03:15 97 07/08/21 03:05 97 07/08/21 02:55 99 07/08/21 02:45 98 07/08/21 02:37 99 07/08/21 01:06 97 07/08/21 00:39 96 07/07/21 23:51 96 07/07/21 21:30 96 PG Care Time/CCT Total # of Minutes Spent Total Time Spent with Patient: Total time spent is greater than 50% in coordination of care (as documented) at patient's floor/unit and/or counseling patient: Coding Level of Care Code 44460 Subseq Hosp Care Lvl 2 Diagnoses Urinary retention R33.9 Hematuria R31.9
--- NOTE | 2021-07-08 08:16 | Fluoroscopy Report ---
FL KUB CLINICAL HISTORY: B/L CYSTO TECHNIQUE: 1 views were obtained with the C-arm in the OR with the above procedure. Total fluoroscopy time was 1.1 seconds. Total skin dose was 0.35 mGy. Comparison: None available at the time of this dictation. FINDINGS/IMPRESSION: Intraoperative images were obtained of bilateral cystogram. Please correlate with intraoperative fluoroscopy and operative report. ACT 112: Negative or not required by law. Electronically signed by: Piotr Frederick M.D. 07/08/2021 8:14 AM
[2021-07-08] MEDS: cefTRIAXone SODIUM 2,000 MG in DEXTROSE 5% 50 ML IV SCH (09:18)
[2021-07-08] MEDS: ATORVASTATIN 20 MG TAB PO SCH (09:18)
[2021-07-08] MEDS: DONEPEZIL HCL 10 MG TAB PO SCH (09:18)
[2021-07-08] MEDS: CHOLECALCIFEROL 1,000 UNITS 25 MCG TAB PO SCH (09:18)
[2021-07-08] MEDS: MULTIVITAMIN TAB PO SCH (09:18)
[2021-07-08] MEDS: LATANOPROST 0.005% OP SOLN 2.5 ML BTL OPB SCH (09:18)
--- NOTE | 2021-07-08 12:42 | Hospitalist Progress Note ---
Date of Service July 08, 2021 Assessment & Plan (1) Hematuria: Plan: Presented to the ED with gross hematuria. Bladder scan done in the ED with HI of >400. Staff unable to pass Bowen and urology consulted * Urology also unable to pass Bowen catheter * taken to the OR by urology Dr. Pino early this morning: was found to have prostatic tear in the posterior wall with large clot that was evacuate. No Tumors in the bladder seen. Several friable patches on trigone and bladder neck requiring cautery * PSA done 06/17 and elevated at 7.15 * WBC normal and afebrile but empirically on Ropcephin. urinalysis limited given gross blood. UC ordered and pending--> ?? associated prostatitis * Bowen catheter remains in place (placed in the OR)-- appreciate recommendations per urology * started of Flomax and Proscar * H/H stable upon admission (hgb 12.4)--> will trend * renal function stable (does not appear to have an obstructing nephropathy) * hold off on pharmacological DVT prophylaxis given hematuria (2) Urinary retention: Plan: * see above * now on Flomax/Proscar * ? prostatitis (3) Dementia with aggressive behavior: Plan: * Patient combative with staff despite soft restraints * pulling out IV and pulling at bowen catheter * add Haldol prn for patient and staff safety (4) CKD (chronic kidney disease), stage III: Plan: * Creatinine 1.39 upon admission, with range 1.32-1.44 (5) Impaired fasting glucose: Plan: * Glucose 114 upon admission * avoid accuchecks for now given risk of increased combative (6) Vitamin D deficiency: Plan: * Continue vitamin D 2000 international units daily (7) Hyperlipidemia: Plan: * Continue atorvastatin 20 mg daily (8) Dementia: Plan: * Continue donepezil 10 mg daily and aspirin 81 mg daily (9) Glaucoma: Plan: * Continue latanoprost Plan: plan of care D/W Dr. Muniz. Admission and Anticipated Discharge Date Admission Date: July 08, 2021 Subjective Patient seen on daily rounds today. Is S/P cystoscopy. Bowen catheter in place with red tinged urine. No clots. Nursing staff reports patient getting combative. Has soft restraints but when arm restraints released, swinging at staff and removed his IV. Also, pulling at Bowen catheter. Review of Systems Review of Systems: vidhya as unreliable historian Physical Exam Physical Exam: General: Resting comfortably in his hospital bed. Confused and easily agitated. Does not appear ill or toxic HEENT: Head is AT/NC buccal mucosa is moist and pink Neck: No JVD. Negative hepatojugular reflex Cardiac: RRR but distant Lungs: CTA without W/R/R Abdomen: Normoactive X4. Soft and nontender in all quadrants.. Bowen catheter in place with pink tinged urine Extremities: No peripheral clubbing cyanosis or edema Neuro:Is NOT oriented to place/time or situation. Is only oriented to self. Cranial nerves II through XII are grossly intact no focal neuro deficits Skin: No obvious skin lesions or rashes Psych: demented. confused Results & Data Results & Data ([facility]) Vital Signs (Past 12 Hours) Vital Signs Temp Pulse Pulse Resp BP BP Pulse Ox 07/08/21 08:00 37.1 C 90 20 113/70 92 07/08/21 06:58 85 07/08/21 06:17 97 07/08/21 04:18 72 07/08/21 03:59 36.5 C 64 22 120/67 97 07/08/21 03:15 36.3 C L 67 21 125/79 97 07/08/21 03:05 66 20 144/58 H 97 07/08/21 02:55 70 20 122/64 99 07/08/21 02:45 71 15 122/63 98 07/08/21 02:37 36.4 C L 64 12 123/73 99 07/08/21 01:06 74 16 115/62 97 Laboratory Results 07/07/21 23:32 07/07/21 23:32 PG Care Time/CCT Total # of Minutes Spent Total Time Spent with Patient: Total time spent is greater than 50% in coordination of care (as documented) at patient's floor/unit and/or counseling patient: Coding Level of Care Code None Diagnoses Hematuria R31.0 Hematuria type: gross Urinary retention R33.9 CKD (chronic kidney disease), stage III N18.3 Impaired fasting glucose R73.01 Vitamin D deficiency E55.9 Hyperlipidemia E78.5 Dementia F03.90 Glaucoma H40.9 Dementia with aggressive behavior F03.91 (1) Hematuria Hematuria type: gross Qualified Code(s): R31.0 - Gross hematuria
[2021-07-08 14:02] LABS: Hematocrit (blood only) 36.1 % (42-52); Hemoglobin 12.5 g/dL (14.0-18.0)
[2021-07-08] MEDS: HALOPERIDOL LACTATE 5 MG/ML 1 ML VIAL IM PRN (14:29)
[2021-07-08] MEDS: TAMSULOSIN HCL 0.4 MG CAP PO SCH (21:25)
[2021-07-09 03:24] LABS: Albumin Globulin Ratio 1.4 (0.9-2); Albumin Level 3.3 gm/dl (3.4-5.0); BUN Creatinine Ratio 8.7 (10-20); Bilirubin,Total 0.7 mg/dl (0.2-1.0); Calcium 8.3 mg/dl (8.5-10.1); Est GFR (African American) 54.4 ml/min; Est GFR (Non-African American) 46.9 ml/min; Globulin 2.4 gm/dl (2.5-4.0); Magnesium 1.8 mg/dl (1.7-2.4); Total Protein 5.7 gm/dl (6.0-8.3)
[2021-07-09 04:51] LABS: Potassium 3.7 mmol/L (3.5-5.1)
[2021-07-09] MEDS: LACTATED RINGER'S 1,000 ML IV SCH ×2 (05:25→16:32)
[2021-07-09] MEDS: ATORVASTATIN 20 MG TAB PO SCH (08:01)
[2021-07-09] MEDS: CHOLECALCIFEROL 1,000 UNITS 25 MCG TAB PO SCH (08:01)
[2021-07-09] MEDS: cefTRIAXone SODIUM 2,000 MG in DEXTROSE 5% 50 ML IV SCH (08:01)
[2021-07-09] MEDS: MULTIVITAMIN TAB PO SCH (08:02)
[2021-07-09] MEDS: DONEPEZIL HCL 10 MG TAB PO SCH (08:02)
[2021-07-09] MEDS: LATANOPROST 0.005% OP SOLN 2.5 ML BTL OPB SCH (08:02)
--- NOTE | 2021-07-09 08:31 | Urology Progress Note ---
Date of Service July 09, 2021 Assessment & Plan (1) Urinary retention: (2) Hematuria: Plan: 85yo M admitted with gross hematuria and urinary retention - Pt POD#1 s/p Cystoscopy, Clot evacuation, and fulguration with Dr. Pino. - Afebrile, lab work reviewed - Creatinine 1.38, WBC 10, Hgb 11.4. - Urine culture pending, continues on IV Ceftriaxone - follow cultures. - Recommend treatment with 10 days of appropriate antibiotic per sensitivities. - Mcginnis catheter intact, draining clear yellow to pink urine with some red sediment, no clots. - Maintain Mcginnis catheter for now to allow for further healing of the urethra, likely 1-2 more days. - Consider voiding trial inpatient tomorrow. - OK to gently hand irrigate Mcginnis catheter as needed for clots, retention, suprapubic pain. - Recommend continuing Flomax and consider addition of 5-CIPRIANO such as Finasteride for dual therapy. - Continue supportive care, antibiotic therapy, and close monitoring. - Will arrange follow-up with our service outpatient. - will follow peripherally, please contact our service with any questions. Admission and Anticipated Discharge Date Admission Date: July 08, 2021 Supervising Physician Co-Signing Physician Notes I agree with the above documentation. A voiding trial on 07/10/21 would be reasonable in anticipation of discharge. Subjective Pt examined at bedside this morning. Awake, alert and sitting up in bed on arrival. Hx of dementia, oriented to self only. Patient on 1:1 precautions and soft restraints d/t being combative and pulling at lines/Mcginnis per nursing. No acute distress. No fevers. Mcginnis intact, draining clear yellow to pink urine with red sediment. No clots noted. Review of Systems Review of Systems: Unobtainable due to cognitive status Physical Exam Constitutional: well developed and well nourished; no acute distress Respiratory: normal respiratory effort; no labored breathing and no audible wheezes Gastrointestinal (Abdomen): Inspection/Auscultation: abdomen normal to inspection; abdomen not distended Percussion/Palpation: abdomen soft; abdomen nontender and no guarding Musculoskeletal: Head/Neck/Chest: normocephalic Skin: No visible rashes or lesions to exposed skin areas Neurologic: moves all extremities, awake and + confused Psychiatric: Orientation: alert and oriented to person Genitourinary: Mcginnis catheter intact, draining clear yellow to pink urine, with red sediment. No clots noted. Results & Data ([facility]) Vital Signs (Past 12 Hours) Vital Signs Temp Pulse Pulse Resp BP Pulse Ox 07/09/21 07:38 88 07/09/21 07:31 37.5 C 84 18 140/75 92 07/09/21 03:06 87 20 132/74 92 07/09/21 02:38 93 H PG Care Time/CCT Total # of Minutes Spent Total Time Spent with Patient: Total time spent is greater than 50% in coordination of care (as documented) at patient's floor/unit and/or counseling patient: Coding Level of Care Code 70922 Subseq Hosp Care Lvl 2 Diagnoses Urinary retention R33.9 Hematuria R31.9
[2021-07-09 10:19] LABS: Basophils # (auto) 0.02 K/uL (0-0.2); Basophils % (auto) 0.2 %; Eosinophils # (auto) 0.11 K/uL (0-0.5); Eosinophils % (auto) 1.1 %; Hematocrit (blood only) 34.1 % (42-52); Hemoglobin 11.4 g/dL (14.0-18.0); Immature Granulocytes # (auto) 0.02 K/uL (0.00-0.02); Immature Granulocytes % (auto) 0.2 %; Lymphocytes # (auto) 1.77 K/uL (1.2-3.4); Lymphocytes % (auto) 17.7 %; Mean Corpuscular Hemoglobin 31.5 pg (25-34); Mean Corpuscular Hgb Conc 33.4 g/dL (32-36); Mean Corpuscular Volume 94.2 fL (80-100); Mean Platelet Volume 10.3 fL (7.4-10.4); Monocytes # (auto) 1.33 K/uL (0.11-0.59); Monocytes % (auto) 13.3 %; Neutrophils # (auto) 6.75 K/uL (1.4-6.5); Neutrophils % (auto) 67.5 %; Platelet Count 180 K/uL (130-400); RDW Coefficient of Variation 13.2 % (11.5-14.5); RDW Standard Deviation 45.8 fL (36.4-46.3); Red Blood Count 3.62 M/uL (4.7-6.1)
[2021-07-09 10:42] LABS: BUN Creatinine Ratio 8.7 (10-20); Calcium 8.3 mg/dl (8.5-10.1); Creatinine Clr Calc Pharmacy 56.3 ml/min; Est GFR (African American) 60.2 ml/min; Est GFR (Non-African American) 51.9 ml/min; Magnesium 1.9 mg/dl (1.7-2.4); Potassium 3.7 mmol/L (3.5-5.1)
--- NOTE | 2021-07-09 12:49 | Hospitalist Progress Note ---
Date of Service July 09, 2021 Assessment & Plan (1) Hematuria: Plan: Presented to the ED with gross hematuria. Bladder scan done in the ED with TN of >400. Staff unable to pass Bowen and urology consulted * Urology also unable to pass Bowen catheter in the ED * taken to the OR by urology Dr. Odette conn 01/05: was found to have prostatic tear in the posterior wall with large clot that was evacuate. No Tumors in the bladder seen. Several friable patches on trigone and bladder neck requiring cautery * PSA done 06/17 and elevated at 7.15 * WBC normal and afebrile. empirically on Rocephin. urinalysis limited given gross blood. UC ordered showing NGTD. In talking with , was on Keflex prior to hospitalization * spoke with Urology who does recommend abx tx for [address] Pino does not feel that an extended course is needed for prostatitis. * would consider transition to Cipro as is RACHEL or perhabs stick with 3rd generation cephalosporin (Cefdinir) as cipro may not be ideal in this 85 y/o with dementia who is ALREADY confused * started on Flomax and Proscar * Bowen catheter remains in place (placed in the OR)-- Ideally, could send today with bowen cath and OP urology appt; however, pt (given his dementia) will likely remove this (as he has attempted this multiple times here). Per urology, will let bowen in place today and perhaps consider removal tomorrow with TOV and post-void bladder scan * H/H stable upon admission (hgb 12.4)--> today is 11.4 (this is likely mostly related to dilutional drop) * renal function stable (does not appear to have an obstructing nephropathy) * hold off on pharmacological DVT prophylaxis given hematuria (2) Urinary retention: Plan: * see above * now on Flomax/Proscar * patient likely with BPH. Uncertain if additional etiology?. Will need to FU [facility] Urology (3) Dementia with aggressive behavior: Plan: * Patient combative with staff despite soft restraints * pulling out IV and pulling at bowen catheter * Haldol on board prn for patient and staff safety * will add seroquel at night (4) CKD (chronic kidney disease), stage III: Plan: * Creatinine remains at baseline-- range 1.32-1.44 * does not appear to have Obstructing Nephropathy (5) Impaired fasting glucose: Plan: * Glucose 114 upon admission * avoid accuchecks for now given risk of increased combative (6) Vitamin D deficiency: Plan: * Continue vitamin D 2000 international units daily (7) Hyperlipidemia: Plan: * Continue atorvastatin 20 mg daily (8) Dementia: Plan: * Continue donepezil 10 mg daily and aspirin 81 mg daily * again, add Seroquel at night for combative rehavior (9) Glaucoma: Plan: * Continue latanoprost Plan: plan of care to be D/W Dr. Muniz. Admission and Anticipated Discharge Date Admission Date: July 08, 2021 Subjective Patient seen on daily rounds today. He is more confused today-- talkative but nonsensical. Remains a 1:1. Has attempted to remove bowen catheter multiple times. Has been afebrile. Has had 4 nonsustained runs of SVT. BP and HR currently 120/70. Per nursing, patient didn't seem symptomatic with this but is a questionable historian. Has been receiving IVF for the past 24 hours at this point. patient is an unreliable historian but denies F/C, CP, SOB, abd pain, N/V. Review of Systems Review of Systems: question reliability But patient denies fevers, chills, chest pain, shortness of breath, abdominal pain, nausea or vomiting Physical Exam Physical Exam: Limited exam as cooperation limited given increased confusion General: Resting comfortably in his hospital bed. He does not appear ill or toxic. He is talkative but nonsensical. NAD. HEENT: Head is AT/NC buccal mucosa is moist and pink Neck: No JVD. Negative hepatojugular reflex Cardiac: Currently RRR with 1-2/6 SEBASTIÁN Lungs: CTA without W/R/R Abdomen: Normoactive X4. Soft and nontender in all quadrants. Extremities: No peripheral clubbing cyanosis or edema Neuro: A&O X4 cranial nerves II through XII are grossly intact no focal neuro deficits Skin: No obvious skin lesions or rashes Psych: Appropriate affect pleasant and cooperative Results & Data Results & Data ([facility]) Vital Signs (Past 12 Hours) Vital Signs Temp Pulse Pulse Pulse Resp BP BP 07/09/21 11:43 37.4 C 88 20 120/70 07/09/21 09:03 100 H 125/82 07/09/21 07:38 88 07/09/21 07:31 37.5 C 84 18 140/75 07/09/21 03:06 87 20 132/74 07/09/21 02:38 93 H Pulse Ox 07/09/21 11:43 92 07/09/21 09:03 91 07/09/21 07:38 07/09/21 07:31 92 07/09/21 03:06 92 07/09/21 02:38 PG Care Time/CCT Total # of Minutes Spent Total Time Spent with Patient: Total time spent is greater than 50% in coordination of care (as documented) at patient's floor/unit and/or counseling patient: Coding Level of Care Code 00917 Subseq Hosp Care Lvl 2 Diagnoses Hematuria R31.0 Hematuria type: gross Urinary retention R33.9 Dementia with aggressive behavior F03.91 CKD (chronic kidney disease), stage III N18.3 Impaired fasting glucose R73.01 Vitamin D deficiency E55.9 Hyperlipidemia E78.5 Dementia F03.90 Glaucoma H40.9 (1) Hematuria Hematuria type: gross Qualified Code(s): R31.0 - Gross hematuria
[2021-07-09] MEDS: METOPROLOL TARTRATE 25 MG TAB PO SCH ×2 (13:16→21:09)
--- NOTE | 2021-07-09 14:01 | Electrocardiogram Report ---
Test Reason : Blood Pressure : / mmHG Vent. Rate : 097 BPM Atrial Rate : 097 BPM P-R Int : 196 ms QRS Dur : 090 ms QT Int : 360 ms P-R-T Axes : 021 -53 051 degrees QTc Int : 457 ms Sinus rhythm with Premature atrial complexes Left anterior fascicular block Poor R wave progression, consider anterior [place] vs. lead placement vs. LVH Abnormal ECG When compared with ECG of 02-JUN-2018 00:15, Premature atrial complexes are no longer Present Confirmed by Jesus Alvarenga ([id number]) on 07/09/2021 2:01:39 PM Referred By: REFERRED SELF Confirmed By:Jesus Alvarenga
[2021-07-09] MEDS: HALOPERIDOL LACTATE 5 MG/ML 1 ML VIAL IM PRN (14:35)
--- NOTE | 2021-07-09 16:58 | XCELERA ---
[id number]
[2021-07-09] MEDS ORDERED: QUEtiapine FUMARATE 25 MG TABLET PO SCH (21:00)
[2021-07-09] MEDS: TAMSULOSIN HCL 0.4 MG CAP PO SCH (21:09)
[2021-07-10] MEDS: LACTATED RINGER'S 1,000 ML IV SCH (04:45)
[2021-07-10 07:39] LABS: Basophils # (auto) 0.02 K/uL (0-0.2); Basophils % (auto) 0.2 %; Eosinophils # (auto) 0.31 K/uL (0-0.5); Eosinophils % (auto) 3.8 %; Hemoglobin 11.1 g/dL (14.0-18.0); Immature Granulocytes # (auto) 0.01 K/uL (0.00-0.02); Immature Granulocytes % (auto) 0.1 %; Lymphocytes # (auto) 1.95 K/uL (1.2-3.4); Lymphocytes % (auto) 23.7 %; Mean Corpuscular Hemoglobin 31.1 pg (25-34); Mean Corpuscular Hgb Conc 32.6 g/dL (32-36); Mean Corpuscular Volume 95.2 fL (80-100); Mean Platelet Volume 10.4 fL (7.4-10.4); Monocytes % (auto) 10.9 %; Neutrophils # (auto) 5.04 K/uL (1.4-6.5); Neutrophils % (auto) 61.3 %; Platelet Count 181 K/uL (130-400); RDW Coefficient of Variation 13.4 % (11.5-14.5); RDW Standard Deviation 46.6 fL (36.4-46.3); Red Blood Count 3.57 M/uL (4.7-6.1); White Blood Count 8.23 K/uL (4.8-10.8)
[2021-07-10 08:04] LABS: Albumin Globulin Ratio 1.4 (0.9-2); Albumin Level 3.1 gm/dl (3.4-5.0); BUN Creatinine Ratio 10.2 (10-20); Bilirubin,Total 0.6 mg/dl (0.2-1.0); Calcium 8.1 mg/dl (8.5-10.1); Creatinine Clr Calc Pharmacy 66.2 ml/min; Est GFR (African American) 73.2 ml/min; Est GFR (Non-African American) 63.1 ml/min; Globulin 2.2 gm/dl (2.5-4.0); Potassium 3.7 mmol/L (3.5-5.1); Total Protein 5.3 gm/dl (6.0-8.3)
[2021-07-10] MEDS: cefTRIAXone SODIUM 2,000 MG in DEXTROSE 5% 50 ML IV SCH (09:31)
[2021-07-10] MEDS: LATANOPROST 0.005% OP SOLN 2.5 ML BTL OPB SCH (09:34)
[2021-07-10] MEDS: DONEPEZIL HCL 10 MG TAB PO SCH (09:34)
[2021-07-10] MEDS: MULTIVITAMIN TAB PO SCH (09:34)
[2021-07-10] MEDS: METOPROLOL TARTRATE 25 MG TAB PO SCH (09:35)
[2021-07-10] MEDS: ATORVASTATIN 20 MG TAB PO SCH (09:35)
[2021-07-10] MEDS: CHOLECALCIFEROL 1,000 UNITS 25 MCG TAB PO SCH (09:35)
--- NOTE | 2021-07-10 14:49 | Discharge Summary ---
Date of Service July 10, 2021 Admission HPI Per Admitting Provider The patient is an 85-year-old male with a past medical history including urinary tract infection, CKD stage III, impaired fasting glucose, vitamin D deficiency, hyperlipidemia, dementia and glaucoma. Patient presented to the emergency department due to his noticing blood when he urinated. This happened intermittently throughout the day. His called the PCP, and was started on antibiotics, however, because of ongoing bleeding, patient was brought to the ED by his this evening. There multiple times in ED to past Bowen catheter, however, they were unsuccessful, and urology Dr. Pino came to the hospital, and was taken the patient to the OR. Principal Diagnosis 1. Gross hematuriathought to be secondary to cystitis 2. Urinary retentioncould be secondary to cystitis in the underlying presence of BPH 3. Enlarged prostateneed to follow-up with urology 4. Hospital-acquired delirium with agitation in the setting of underlying dementia 5. Nonsustained SVT Discharge Exam Limited exam as cooperation limited given increased confusion General: Resting comfortably in his hospital bed. He does not appear ill or toxic. He is talkative but nonsensical. NAD. HEENT: Head is AT/NC buccal mucosa is moist and pink Neck: No JVD. Negative hepatojugular reflex Cardiac: Currently RRR with 1-2/6 SEBASTIÁN Lungs: CTA without W/R/R Abdomen: Normoactive X4. Soft and nontender in all quadrants. Extremities: No peripheral clubbing cyanosis or edema Neuro: A&O X4 cranial nerves II through XII are grossly intact no focal neuro deficits Skin: No obvious skin lesions or rashes Psych: Appropriate affect pleasant and cooperative Discharge Data Allergies Allergy/AdvReac Type Severity Reaction Status Date / Time prednisone Allergy Mild Agitated Verified 07/07/21 23:27 Consultations 07/08/21 00:22 ED Decision to Admit Stat 07/10/21 14:30 Consult APRILG vein access technician Routine Procedures Performed Operation Date: 07/08/21 01:30 Actual Procedures p Cystoscopy, Clot Evacutaion and Fulgeration - Navin Pino MD Ordered Studies 07/08/21 01:00 FL KUB Routine Hospital Course (1) Hematuria: Presented to the ED with gross hematuria. Bladder scan done in the ED with ND of >400. Staff unable to pass Bowen and urology consulted * Urology also unable to pass Bowen catheter in the ED * taken to the OR by urology Dr. Odette buttson 01/05: was found to have prostatic tear in the posterior wall with large clot that was evacuated. No Tumors in the bladder seen. Several friable patches on trigone and bladder neck requiring cautery * PSA done 06/17 and elevated at 7.15 * WBC normal and afebrile. empirically on Rocephin. urinalysis limited given gross blood. UC ordered showing NGTD. In talking with , was on Keflex prior to hospitalization * spoke with Urology who does recommend abx tx for [address] Pino does not feel that an extended course is needed for prostatitis. * culture data limited (likely given prehospital abx on board)-- transition Rocephin to Cefdinir (as to avoid Quinolones given risk of increased confusion with this) * started on Flomax and Proscar--see below * Bowen catheter placed intraoperative. Maintained x48 hours until hematuria resolved. Removed on 07/10. Pt was able to void with PVR of 140 * H/H stable upon admission (hgb 12.4)--> today is 11.1 (this is likely mostly related to dilutional drop and IVF given upfront) * renal function stable (does not appear to have an obstructing nephropathy) * held off on pharmacological DVT prophylaxis given hematuria * At this point time, patient is medically hemodynamically stable for discharge to home. Again, we will continue antibiotic therapy for total of 10 days as outlined by urology * Patient should follow-up with urology within 2 weeks to determine next steps. (2) Urinary retention: * see above * Baldder with >400cc in the ED and multiple staff (including Urology) unable to pass bowen catheter. Patient take to the OR for cystoscopy and catheter placed intraoperatively and maintained x48h post-op * now on Flomax/Proscar * patient likely with BPH. Uncertain if additional etiology?. PSA done 06/10 and slightly elevated at 7.10 *should have free and total) * Will need to FU with Urology (which will be arranged prior to D/C to home) (3) Dementia with aggressive behavior: * Patient combative with staff despite soft restraints * pulling out IV and pulling at bowen catheter * Haldol on board prn for patient and staff safety * utilized routine seroquel while in house * It was his combative behavior and risk of removal of Bowen catheter prematurely that kept him in the hospital. Typically would DC with intact Bowen catheter but given the difficulty in placing this catheter and risk of removal, he was kept overnight to ensure he was able to void on his own. * I suspect his combative behavior/aggressive behavior will improve when he is back in his environment as he likely has a component of hospital-acquired delirium in the setting of dementia * Lengthy discussion with patient's and when patient seen on hospital day #1, he was at his baseline. She reports that he is oriented to self and recognizes her but mostly does not recognize his children. He requires total care * Did offer to discharge with visiting nurses but she declined and reports that she has taken care of him for years and she feels comfortable doing so. (4) SVT (supraventricular tachycardia): * on the mornining of 07/09-- patient had multiple runs of self terminating ~2 min each * e-lytes WNL (including potassium and mag). He was adequately hydrated at this point in time and did not appear to be related to infection. * EKG showing no acute changes * TSH 5.4. Free T4 normal. Total T3 pending * echo done showing preserved EF of 60 to 65% with no regional wall motion abnormalities. Difficult study technically but no significant change from prior * started on Metoprolol 25mg BID. No further runs of SVT but BP marginal (93-125 systolic) with a current HR or 54. * continue BB but decrease to 12.5mg with plan for patient to FU with PCP regarding this (5) CKD (chronic kidney disease), stage III: * Creatinine remains at baseline-- range 1.32-1.44 * does not appear to have Obstructing Nephropathy (6) Impaired fasting glucose: * Glucose 114 upon admission * avoid accuchecks for now given risk of increased combative (7) Vitamin D deficiency: * Continue vitamin D 2000 international units daily (8) Hyperlipidemia: * Continue atorvastatin 20 mg daily (9) Dementia: * Continue donepezil 10 mg daily and aspirin 81 mg daily * again, add Seroquel at night for combative behavior while in house but reports no combative behavior at home. May need to consider adding this in the future (10) Glaucoma: * Continue latanoprost plan of care to be D/W Dr. Muniz. Total Time Total Time Spent Total Time Spent (In Minutes): 60 min including time spent with patient, discussion with urology, discussion with , case management, and attending provider along with preparation of documentation Discharge Plan Discharge Items Patient Disposition: Home - Self-Care Reason For Visit: GROSS HEMATURIA Discharge Diagnosis: 1. Hematuria (blood in the urine)-- thought to be secondary to cystitis 2. presumed Cystitis- infection/inflammation of the bladder 3. BPH- enlarged prostate 4. Urinary retention secondary to #3 5. Nonsustained SVT (supraventricular Tachycardia)-- fast heart rate 6. Dementia with increased agitation Activity: Resume your previous activity Non-emergency contact: Primary Care Provider and Urologist Call non-emergency contact if: you have any medication questions Follow-up/Referrals: Yuni Elmore CRNP [Primary Care Provider] - Navin Pino MD [Physician] - Diet: Carb Consistent or DM2 Addtl Attending Provider Instructions: - you presented to the Emergency Department with complaints of urinary bleeding (called hematuria) - in addition, you were having a hard time passing your urine (or voiding) and a bladder scan showed >400mL urine in the bladder. Multiple attempts made at placing a bowen catheter by ED and urology staff without success - you were taken to the OR where you were found to have a small tear in the prostate (likely from multiple attempts at bowen catheter insertions) but also a clot in the bladder that was evacuated. This was thought to be related to cystitis (or infection/inflammation of the bladder) for which you were treated with antibiotics - your Aspirin has been held on account of the bleeding from the bladder. I would advise holding this for the next 2 weeks and if doing well. okay to resume your aspirin that that time - you should complete the full course of antibiotic therapy as prescribed ( Cefdinir to be taken twice a day until gone, next dose due tonight) - in addition, a bowen catheter was inserted while in the OR. The blood noted in your urine has since resolved. You were started on medications to help you void (pee) given the enlarged prostate (Flomax and Proscar) and the catheter has since been removed. You were able to void with success. It is important to return to the ED if you are unable to void and to follow up with Dr. Pino (urologist). Cystitis can also cause issues with retention and make it difficult to urinate. - while in the hospital, you have several "runs" of a very fast heart rate. For this reason, you were started on Metoprolol. Since starting this medication, no additional runs of this SVT since starting this medication. Follow up with your Family Physician to follow up on this and check you heart rate and blood pressure - Last, patient had increased confusion and agitation while in the hospital (which I believe is related to being out of his environment and in the hospital). This will likely improve and return back to baseline with being back in your home/environment - return to the ED for new or worsening symptoms - follow up with PCP: 7-10 days - Follow up with Dr. Pino (Urology): 2 weeks Pending Studies at Discharge: No Stand-Alone Forms: My [facility] ([email or web address]) Medications and DC Order Prescriptions: New tamsulosin 0.4 mg Capsule 0.4 mg PO HS Qty: 30 RF: 0 metoprolol tartrate 25 mg Tablet 12.5 mg PO BID Qty: 30 RF: 0 finasteride [Proscar] 5 mg tablet 5 mg PO DAILY Qty: 30 RF: 0 cefdinir 300 mg capsule 300 mg PO BID 10 Days Qty: 17 RF: 0 Continued Neuriva Plus Brain Performance 1.7 mg-400 mcg- 2.4 mcg capsule 1 cap PO DAILY RF: 0 multivitamin Tablet 1 tab PO DAILY RF: 0 ergocalciferol (vitamin D2) [Vitamin D2] 50,000 unit Capsule 2,000 unit PO DAILY RF: 0 omega 7-bym-jtd-fish oil [Fish Oil] 1,000 mg (120 mg-180 mg) Capsule 1 cap PO DAILY RF: 0 latanoprost 0.005 % drops 1 drp OPB DAILY RF: 0 atorvastatin 20 mg tablet 20 mg PO DAILY RF: 0 donepezil 10 mg tablet 10 mg PO DAILY RF: 0 Discontinued cephalexin 500 mg capsule 500 mg PO Q8H Qty: 21 RF: 0 aspirin 81 mg Tablet,Delayed Release (Dr/Ec) 81 mg PO DAILY RF: 0 Discharge Orders: Discharge Order (Routine); Ordered 07/10/21 Ordered By: Chiquis Franco Admission Data Admit Date/Time: 07/08/21 01:17 Attending Provider: Gadiel Muniz Admit Provider: Kraig Wilson Primary Care Provider: Yuni Elmore Other Providers: Gadiel Muniz Coding Level of Care Code D/C DAY MANAGEMENT >30 MINS Diagnoses Hematuria R31.0 Hematuria type: gross Urinary retention R33.9 Dementia with aggressive behavior F03.91 CKD (chronic kidney disease), stage III N18.3 Impaired fasting glucose R73.01 Vitamin D deficiency E55.9 Hyperlipidemia E78.5 Dementia F03.90 Glaucoma H40.9 SVT (supraventricular tachycardia) I47.1
== END 2021-07-10 16:15 | disposition home or self-care (01) ==
LOC: ED 21:26 → OR 07-08 01:06 → INTOOBSV 07-08 01:17 → SUATTDRO 07-08 01:17 → 2N 07-08 01:17

== ENCOUNTER 2022-09-01 16:11 | Inpatient (IN) ==
[2022-09-01] MEDS ORDERED: CEFEPIME 2,000 MG/20 ML VIAL IV STA (16:20)
--- NOTE | 2022-09-01 16:25 | Emergency Department Note ---
Impression & Plan Acute confusion, Weakness, Pneumonia, COVID-19, ANSHUL (acute kidney injury) ED Provider Note NAME: CARMEN SHARP SR AGE: 86 SEX: M : 1935 ARRIVES VIA: Ambulance INFORMANT: [nursing, ems] ED PROVIDER(S): [Walt Braden MD] CHIEF COMPLAINT: Altered mental state HISTORY OF PRESENT ILLNESS: The patient is an 86-year-old male who presents with an altered mental state that has been ongoing all day. He has dementia but his mental status has declined today. No reported fever. As per EMS, his blood sugar was adequate in the 80s. He did apparently slide off his recliner today because of weakness. No trauma suffered. The patient has not had fever. No vomiting or diarrhea per family, no complaints of pain. His did notice an increased cough the last night. No further history obtainable as the patient can provide no history to why he is here. PMHx/PSHx: See Below SOCIAL HISTORY: See Below. PHYSICAL EXAM: GENERAL: Patient is in no acute distress. HEENT: No acute trauma, normocephalic atraumatic, mucous membranes moist, no nasal congestion. NECK: No stridor, no adenopathy, no meningismus, trachea is midline. LUNGS: Few scattered crackles heard at the left anterior lung. The right lung seems clear. No wheezing. Increased respiratory rate was noted. No respiratory distress HEART: Mildly tachycardic, regular rhythm, no obvious murmur, heart tones are distant. ABDOMEN: Soft, nontender, bowel sounds positive, no peritonitis. EXTREMITIES: No cyanosis, mild bilateral pedal edema, full range of motion of all the joints without pain or difficulty, no signs for acute trauma. NEUROLOGIC: Awake, moves all extremities, confused, responds to voice or touch. SKIN: No rash, no jaundice, no diaphoresis. Groin: No scrotal erythema noted. DIFFERENTIAL DIAGNOSIS: Sepsis or bacteremia, intracranial bleeding, stroke, electrolyte imbalance, anemia, PR, UTI, dehydration, viral illness, among others. EMERGENCY DEPARTMENT COURSE/PROCEDURES: Prior/Outside records reviewed: Previous urology notes. EMS records. ECG per my interpretation: Indication was weakness. ECG shows a sinus manfred ycardia with a first-degree AV block. The rate is 55. There was some baseline artifact. There was no ST elevation, no PVCs. The QTc was 403. Continuous Cardiac Monitoring per my interpretation: An order was placed for continuous cardiac monitoring. The monitor shows a rate of 58 with sinus bradycardia. Critical Care Note: I have personally spent 48 minutes of critical care time in the direct management of this patient. This includes bedside care, interpretation of diagnostic studies, and testing, discussion with consultants, patient, and family members, and other required patient management activities. This 48 minutes is in excess of all separately billable procedures. MEDICAL DECISION MAKING: There is no leukocytosis or concerning anemia. There is a normal platelet count. No coagulopathy. Creatinine was elevated consistent with some acute kidney injury and dehydration. Lactic acid level was not elevated making severe sepsis less likely. There was no concerning liver enzyme elevation. Proca lcitonin level was not elevated. Chest x-ray shows what appears to be a left lung pneumonia per my review. Brain CT shows no acute bleed or mass effect. Respiratory bio fire returned positive for COVID-19. The patient presents altered. He had some crackles heard across the left lung. Patient was given a 500 cc saline bolus. He was given 2 g of IV cefepime. He was given a DuoNeb. The patient is in need of a hospital stay. He is weak, altered, he has COVID-19 and appears to have pneumonia. I did speak with the patient and the family, the on-call hospitalist was consulted. Case management has been involved. DISPOSITION: The patient's presentation and findings warrant a hospital stay. Past Med/Surg History Medical History Benign prostatic hyperplasia with urinary obstruction Diverticulosis Frequent urination at night Glaucoma Hyperlipidemia Pneumonia Supraventricular tachycardia, nonsustained Tubular adenoma Vitamin D deficiency Surgical History No history of previous surgery Family History Denies family history of Ovarian cancer Prostate cancer Myocardial infarction Breast cancer Colorectal cancer Social History Smoking Status: Never smoker Second Hand Exposure: No; Hx Alcohol Use: No Hx Substance Use: No Preferred Language: Mauritanian Communication Ability: Unable Hearing Ability: Hard of Hearing City Attorney Required: No Beliefs That Will Affect Care: None marital status: Current Living Situation: Spouse current occupational status: retired How many Children do You have: 6 Feels Safe at Home: Yes Childhood Exposure to Second-Hand Smoke: No caffeine: Yes Dental Care, Regularly: No Physical Activity Frequency: Daily Seatbelt Use: never Sunscreen Use: No Assistive Devices: Denture - Upper, Glasses and Walker Allergies Allergies Allergy/AdvReac Type Severity Reaction Status Date / Time prednisone Allergy Mild Agitated Verified 09/01/22 17:51 Home Meds Home Medications Medication Instructions Recorded Confirmed ergocalciferol (vitamin D2) 1,250 2,000 unit PO DAILY 04/15/18 09/01/22 mcg (50,000 unit) capsule (Vitamin D2) multivitamin 1 tab PO DAILY 08/15/20 09/01/22 latanoprost 0.005 % eye drops 1 drp OPB DAILY 07/07/21 09/01/22 aspirin 81 mg tablet,delayed 81 mg PO DAILY 09/01/22 09/01/22 release donepezil 10 mg tablet 10 mg PO DAILY 09/01/22 09/01/22 dorzolamide 22.3 mg-timolol 6.8 1 drp OPB BID 09/01/22 09/01/22 mg/mL eye drops lorazepam 0.5 mg tablet 0.5 mg PO DIRECTED 09/01/22 09/01/22 metoprolol tartrate 25 mg tablet 12.5 mg PO BID 09/01/22 09/01/22 Previous Rx's Medication Instructions Recorded finasteride 5 mg tablet (Proscar) 5 mg PO DAILY #90 tabs 11/20/21 tamsulosin 0.4 mg capsule 0.4 mg PO HS #90 caps 11/20/21 levothyroxine 25 mcg tablet 25 mcg PO DAILY #30 tabs 05/12/22 (Synthroid) nirmatrelvir 150 mg-ritonavir 100 See Rx Instructions PO .COMPLEX 09/01/22 mg tablets in a dose pack (EUA) #20 ea (Paxlovid) Results & Data (ED) Vital Signs Vital Signs - 24 hr 09/01/22 16:31 09/01/22 16:38 09/01/22 16:38 Temperature 36.6 C Temperature Source Axillary Pulse Rate 60 Pulse Rate [Right Finger] 60 Pulse Rhythm [Right Finger] Pulse Strength [Right Finger] Respiratory Rate Respiratory Effort / Characteristics Respiratory Depth Respiratory Pattern Blood Pressure 107/60 Blood Pressure [Right Arm] 107/60 Blood Pressure Mean 75 Blood Pressure Mean [Right Arm] 75 Blood Pressure Position [Right Arm] Pulse Oximetry 91 91 91 Oxygen Delivery Method Room Air Room Air Room Air Sepsis Recent Fever Within 48 Hours No Sepsis New/Unexplained Change in Mental Status No Sepsis Action Taken by Nursing No Action Required Pulse Oximetry Post Tiitration 09/01/22 16:38 09/01/22 17:39 09/01/22 17:55 Temperature Temperature Source Pulse Rate Pulse Rate [Right Finger] 55 L 59 L Pulse Rhythm [Right Finger] Pulse Strength [Right Finger] Respiratory Rate Respiratory Effort / Characteristics Respiratory Depth Respiratory Pattern Blood Pressure Blood Pressure [Right Arm] 115/59 L Blood Pressure Mean Blood Pressure Mean [Right Arm] 77 Blood Pressure Position [Right Arm] Pulse Oximetry 95 96 Oxygen Delivery Method Room Air Room Air Room Air Sepsis Recent Fever Within 48 Hours Sepsis New/Unexplained Change in Mental Status Sepsis Action Taken by Nursing Pulse Oximetry Post Tiitration 91 09/01/22 16:20 09/01/22 18:00 Temperature Temperature Source Pulse Rate 64 Pulse Rate [Right Finger] 58 L Pulse Rhythm [Right Finger] Regular Pulse Strength [Right Finger] Normal Respiratory Rate 18 Respiratory Effort / Characteristics Non-Labored Respiratory Depth Normal Respiratory Pattern Regular Blood Pressure Blood Pressure [Right Arm] 103/46 L Blood Pressure Mean Blood Pressure Mean [Right Arm] 65 Blood Pressure Position [Right Arm] Lying Pulse Oximetry 97 Oxygen Delivery Method Room Air Sepsis Recent Fever Within 48 Hours Sepsis New/Unexplained Change in Mental Status Sepsis Action Taken by Nursing Pulse Oximetry Post Tiitration Home Medications Current Medication List: was personally reviewed by me Laboratory Data Attestation: I reviewed the patient's lab results. 09/01/22 16:45 09/01/22 16:45 Lab Results 09/01/22 09/01/22 09/01/22 Range/Units 16:40 16:40 16:44 WBC (4.8-10.8) K/ul RBC (4.70-6.10) M/uL Hgb (14.0-18.0) g/dl Hct (42.0-52.0) % MCV (80.0-100.0) fL MCH (25.0-34.0) pg MCHC (32.0-36.0) g/dL RDW Std Deviation (36.4-46.3) fL RDW Coeff of Sameera (11.5-14.5) % Plt Count (130-400) K/uL MPV (9.4-12.4) fL Immature Gran % (Auto) % Neut % (Auto) % Lymph % (Auto) % Tripp % (Auto) % Eos % (Auto) % Baso % (Auto) % Neut # (Auto) (1.40-6.50) K/uL Lymph # (Auto) (1.2-3.4) K/uL Tripp # (Auto) (0.11-0.59) K/uL Eos # (Auto) (0-0.50) K/uL Baso # (Auto) (0-0.2) K/uL Immature Gran # (Auto) (0.01-0.20) K/uL PT 11.9 (9.0-12.0) Seconds INR 1.1 (0.9-1.1) APTT 29.1 (21.0-31.0) Seconds PTT Ratio 1.1 Sodium (136-145) mmol/L Potassium (3.5-5.1) mmol/L Chloride (98-107) mmol/L Carbon Dioxide (21-32) mmol/L Anion Gap (3-11) BUN (6-23) mg/dl Creatinine (0.6-1.4) mg/dl Est Cr Clr Drug Dosing ml/min Est GFR ( Amer) ml/min Est GFR (Non-Af Amer) ml/min BUN/Creatinine Ratio (10-20) Glucose (70-99(Fasting)) mg/dl Lactate (0.4-2.0) mmol/L Calcium (8.5-10.1) mg/dl Magnesium (1.7-2.4) mg/dl Total Bilirubin (0.2-1.0) mg/dl Direct Bilirubin (0-0.2) mg/dl AST (13-39) U/L ALT (7-52) U/L Alkaline Phosphatase (34-104) U/L Troponin I High Sens (0-20) pg/ml B-Natriuretic Peptide (0-100) pg/ml Total Protein (6.0-8.3) gm/dl Albumin (3.4-5.0) gm/dl Procalcitonin (0-0.5) ng/ml Urine Color Dark Yellow Urine Appearance Clear (Clear) Urine pH 6.5 (4.5-7.5) Ur Specific Eakly 1.032 H (1.000-1.030) Urine Protein 1+ H (Negative) Urine Glucose (UA) Negative (Negative) Urine Ketones 1+ H (Negative) Urine Blood Negative (Negative) Urine Nitrite Negative (Negative) Urine Bilirubin Negative (Negative) Urine Urobilinogen Negative (Negative) Ur Leukocyte Esterase Negative (Negative) Urine WBC (Auto) 1-5 (0-5) /hpf Urine RBC (Auto) 5-10 H (0-4) /hpf U Hyaline Cast (Auto) 5-10 H (0-5) /lpf U Epithel Cells (Auto) >30 H (0-5) /lpf Urine Bacteria (Auto) Negative (Negative) Adenovirus (PCR) Not Detected (NotDetected) B. pertussis DNA (PCR) Not Detected (NotDetected) B.parapertussis DNA PCR Not Detected (NotDetected) C. pneumoniae DNA (PCR) Not Detected (NotDetected) Coronavirus OC43 (PCR) Not Detected (NotDetected) Coronavirus HKU1 (PCR) Not Detected (NotDetected) Coronavirus 229E (PCR) Not Detected (NotDetected) SARS-CoV-2 (PCR) DETECTED A* (NotDetected) Coronavirus NL63 (PCR) Not Detected (NotDetected) Human Metapneumovir PCR Not Detected (NotDetected) Influenza Type A (PCR) Not Detected (NotDetected) Influenza Type B (PCR) Not Detected (NotDetected) M. pneumoniae (PCR) Not Detected (NotDetected) Parainfluenza 1 (PCR) Not Detected (NotDetected) Parainfluenza 2 (PCR) Not Detected (NotDetected) Parainfluenza 3 (PCR) Not Detected (NotDetected) Parainfluenza 4 (PCR) Not Detected (NotDetected) RSV (PCR) Not Detected (NotDetected) Entero/Rhino (PCR) Not Detected (NotDetected) 09/01/22 09/01/22 09/01/22 Range/Units 16:44 16:45 16:45 WBC 7.64 (4.8-10.8) K/ul RBC 4.89 (4.70-6.10) M/uL Hgb 15.1 (14.0-18.0) g/dl Hct 44.9 (42.0-52.0) % MCV 91.8 (80.0-100.0) fL MCH 30.9 (25.0-34.0) pg MCHC 33.6 (32.0-36.0) g/dL RDW Std Deviation 42.9 (36.4-46.3) fL RDW Coeff of Sameera 12.8 (11.5-14.5) % Plt Count 143 (130-400) K/uL MPV 10.8 (9.4-12.4) fL Immature Gran % (Auto) 1.4 % Neut % (Auto) 74.7 % Lymph % (Auto) 9.8 % Tripp % (Auto) 13.5 % Eos % (Auto) 0.3 % Baso % (Auto) 0.3 % Neut # (Auto) 5.71 (1.40-6.50) K/uL Lymph # (Auto) 0.75 L (1.2-3.4) K/uL Tripp # (Auto) 1.03 H (0.11-0.59) K/uL Eos # (Auto) 0.02 (0-0.50) K/uL Baso # (Auto) 0.02 (0-0.2) K/uL Immature Gran # (Auto) 0.11 (0.01-0.20) K/uL PT (9.0-12.0) Seconds INR (0.9-1.1) APTT (21.0-31.0) Seconds PTT Ratio Sodium 139 (136-145) mmol/L Potassium 4.7 (3.5-5.1) mmol/L Chloride 107 (98-107) mmol/L Carbon Dioxide 25 (21-32) mmol/L Anion Gap 7 (3-11) BUN 20 (6-23) mg/dl Creatinine 1.72 H (0.6-1.4) mg/dl Est Cr Clr Drug Dosing 41.6 ml/min Est GFR ( Amer) 41.4 ml/min Est GFR (Non-Af Amer) 35.7 ml/min BUN/Creatinine Ratio 11.6 (10-20) Glucose 98 (70-99(Fasting)) mg/dl Lactate (0.4-2.0) mmol/L Calcium 8.8 (8.5-10.1) mg/dl Magnesium 1.9 (1.7-2.4) mg/dl Total Bilirubin 0.6 (0.2-1.0) mg/dl Direct Bilirubin 0.1 (0-0.2) mg/dl AST 29 (13-39) U/L ALT 16 (7-52) U/L Alkaline Phosphatase 56 (34-104) U/L Troponin I High Sens 8.4 (0-20) pg/ml B-Natriuretic Peptide (0-100) pg/ml Total Protein 6.7 (6.0-8.3) gm/dl Albumin 3.9 (3.4-5.0) gm/dl Procalcitonin 0.05 (0-0.5) ng/ml Urine Color Urine Appearance (Clear) Urine pH (4.5-7.5) Ur Specific Eakly (1.000-1.030) Urine Protein (Negative) Urine Glucose (UA) (Negative) Urine Ketones (Negative) Urine Blood (Negative) Urine Nitrite (Negative) Urine Bilirubin (Negative) Urine Urobilinogen (Negative) Ur Leukocyte Esterase (Negative) Urine WBC (Auto) (0-5) /hpf Urine RBC (Auto) (0-4) /hpf U Hyaline Cast (Auto) (0-5) /lpf U Epithel Cells (Auto) (0-5) /lpf Urine Bacteria (Auto) (Negative) Adenovirus (PCR) (NotDetected) B. pertussis DNA (PCR) (NotDetected) B.parapertussis DNA PCR (NotDetected) C. pneumoniae DNA (PCR) (NotDetected) Coronavirus OC43 (PCR) (NotDetected) Coronavirus HKU1 (PCR) (NotDetected) Coronavirus 229E (PCR) (NotDetected) SARS-CoV-2 (PCR) (NotDetected) Coronavirus NL63 (PCR) (NotDetected) Human Metapneumovir PCR (NotDetected) Influenza Type A (PCR) (NotDetected) Influenza Type B (PCR) (NotDetected) M. pneumoniae (PCR) (NotDetected) Parainfluenza 1 (PCR) (NotDetected) Parainfluenza 2 (PCR) (NotDetected) Parainfluenza 3 (PCR) (NotDetected) Parainfluenza 4 (PCR) (NotDetected) RSV (PCR) (NotDetected) Entero/Rhino (PCR) (NotDetected) 09/01/22 09/01/22 Range/Units 16:45 16:45 WBC (4.8-10.8) K/ul RBC (4.70-6.10) M/uL Hgb (14.0-18.0) g/dl Hct (42.0-52.0) % MCV (80.0-100.0) fL MCH (25.0-34.0) pg MCHC (32.0-36.0) g/dL RDW Std Deviation (36.4-46.3) fL RDW Coeff of Sameera (11.5-14.5) % Plt Count (130-400) K/uL MPV (9.4-12.4) fL Immature Gran % (Auto) % Neut % (Auto) % Lymph % (Auto) % Tripp % (Auto) % Eos % (Auto) % Baso % (Auto) % Neut # (Auto) (1.40-6.50) K/uL Lymph # (Auto) (1.2-3.4) K/uL Tripp # (Auto) (0.11-0.59) K/uL Eos # (Auto) (0-0.50) K/uL Baso # (Auto) (0-0.2) K/uL Immature Gran # (Auto) (0.01-0.20) K/uL PT (9.0-12.0) Seconds INR (0.9-1.1) APTT (21.0-31.0) Seconds PTT Ratio Sodium (136-145) mmol/L Potassium (3.5-5.1) mmol/L Chloride (98-107) mmol/L Carbon Dioxide (21-32) mmol/L Anion Gap (3-11) BUN (6-23) mg/dl Creatinine (0.6-1.4) mg/dl Est Cr Clr Drug Dosing ml/min Est GFR ( Amer) ml/min Est GFR (Non-Af Amer) ml/min BUN/Creatinine Ratio (10-20) Glucose (70-99(Fasting)) mg/dl Lactate 2.0 (0.4-2.0) mmol/L Calcium (8.5-10.1) mg/dl Magnesium (1.7-2.4) mg/dl Total Bilirubin (0.2-1.0) mg/dl Direct Bilirubin (0-0.2) mg/dl AST (13-39) U/L ALT (7-52) U/L Alkaline Phosphatase (34-104) U/L Troponin I High Sens (0-20) pg/ml B-Natriuretic Peptide 168 H (0-100) pg/ml Total Protein (6.0-8.3) gm/dl Albumin (3.4-5.0) gm/dl Procalcitonin (0-0.5) ng/ml Urine Color Urine Appearance (Clear) Urine pH (4.5-7.5) Ur Specific Eakly (1.000-1.030) Urine Protein (Negative) Urine Glucose (UA) (Negative) Urine Ketones (Negative) Urine Blood (Negative) Urine Nitrite (Negative) Urine Bilirubin (Negative) Urine Urobilinogen (Negative) Ur Leukocyte Esterase (Negative) Urine WBC (Auto) (0-5) /hpf Urine RBC (Auto) (0-4) /hpf U Hyaline Cast (Auto) (0-5) /lpf U Epithel Cells (Auto) (0-5) /lpf Urine Bacteria (Auto) (Negative) Adenovirus (PCR) (NotDetected) B. pertussis DNA (PCR) (NotDetected) B.parapertussis DNA PCR (NotDetected) C. pneumoniae DNA (PCR) (NotDetected) Coronavirus OC43 (PCR) (NotDetected) Coronavirus HKU1 (PCR) (NotDetected) Coronavirus 229E (PCR) (NotDetected) SARS-CoV-2 (PCR) (NotDetected) Coronavirus NL63 (PCR) (NotDetected) Human Metapneumovir PCR (NotDetected) Influenza Type A (PCR) (NotDetected) Influenza Type B (PCR) (NotDetected) M. pneumoniae (PCR) (NotDetected) Parainfluenza 1 (PCR) (NotDetected) Parainfluenza 2 (PCR) (NotDetected) Parainfluenza 3 (PCR) (NotDetected) Parainfluenza 4 (PCR) (NotDetected) RSV (PCR) (NotDetected) Entero/Rhino (PCR) (NotDetected) Administered Medications Discontinued Medications Albuterol (Albut/Ipratrop 3mg/0.5mg Neb 3 Ml Vial) 3 ml NEB NOW STA; Protocol Stop: 09/01/22 17:40 Last Admin: 09/01/22 18:13 Dose: 3 ml Documented By: SHAQUILLE Sodium Chloride (Nss 1000ml) 1,000 mls @ 999 mls/hr IV .Q1H1M BISMARK Stop: 09/01/22 17:30 Last Admin: 09/01/22 17:34 Dose: Not Given Documented By: MIRANDA Cefepime HCl (Maxipime) 2,000 mg in 20 mls @ 5 mls/min IV NOW STA; Protocol Stop: 09/01/22 16:23 Last Admin: 09/01/22 17:36 Dose: 5 mls/min Documented By: MES Sodium Chloride (Nss 1000ml) 500 mls @ 999 mls/hr IV .Q31M ONE Stop: 09/01/22 17:45 Last Admin: 09/01/22 17:36 Dose: 999 mls/hr Documented By: MIRANDA Imaging Data Radiologist's Impression: Chest X-Ray 09/01/22 16:20 SINGLE VIEW CHEST CLINICAL HISTORY: Sepsis. FINDINGS: An AP, portable, upright chest radiograph is compared to study dated 04/18/2021. Correlation is made with chest CT dated 11/18/2018. The examination is degraded by portable technique and patient rotation. The heart is enlarged. There is pulmonary vascular congestion. Airspace consolidation is seen at the left lung base. Linear scarring/atelectasis is noted at the right lung base. Trace pleural effusions are suspected. No pneumothorax is seen. The skeletal structures are osteopenic. The bony thorax is grossly intact. IMPRESSION: 1. Cardiomegaly with evidence of congestive failure. 2. Left basilar consolidation could represent scarring/atelectasis versus pneumonia/aspiration pneumonitis. Clinical correlation will be required and radiographic follow-up to resolution is recommended. 3. Suspect trace pleural effusions. ACT 112: Negative or not required by law. Electronically signed by: Walt Vega M.D. 09/01/2022 5:[address] 09/01/22 16:20 CT SCAN OF THE BRAIN WITHOUT IV CONTRAST CLINICAL HISTORY: Delirium. COMPARISON STUDY: No priors. TECHNIQUE: Unenhanced axial CT scan of the brain is performed from the vertex to the skull base. A dose lowering technique was utilized adhering to the principles of ALARA. CT DOSE: 884.08 mGy.cm FINDINGS: Brain parenchyma: There is age-related involutional change noting moderate subcortical and periventricular microangiopathic disease. There is no hemorrhage, mass effect, or evidence of acute territorial ischemia by CT criteria. Marques-white matter differentiation is preserved. No extra-axial fluid collection is seen. Ventricles, sulci, cisterns: Prominent secondary to involutional change. Intracranial vasculature: There is atherosclerotic calcification of the cavernous carotid and vertebral arteries. Calvarium: Unremarkable. Soft tissues: There is a 2.0 cm calcified sebaceous cyst in the right posterior parietal scalp. Sinuses and mastoids: The visualized paranasal sinuses are clear. There is a large right mastoid effusion and fluid in the right middle ear. There is a small mastoid effusion on the left. Orbits: The bony orbits are grossly intact. There are bilateral ocular lens implants. IMPRESSION: There is no hemorrhage, mass effect, or evidence of acute territorial ischemia by CT criteria. ACT 112: Negative or not required by law. Electronically signed by: Walt Vega M.D. 09/01/2022 6:21 PM Discharge Plan Visit Data Chief Complaint: Altered Mental Status Stated Complaint: Hx dementia, GLF, decline in mental status ED Provider: Walt Braden Discharge Problem: Acute confusion, Weakness, Pneumonia, COVID-19, ANSHUL (acute kidney injury) Patient Disposition: Admitted As Inpatient Condition: Fair Forms Stand Alone Forms: [facility] SP Materials Prescriptions Prescriptions: New Paxlovid (EUA) 150-100 mg tablets,dose pack See Rx Instructions .ROUTE .COMPLEX Qty: 20 0RF Rx Instructions: take ONE 150 mg tablet of nirmatrelvir with ONE 100 mg tablet of ritonavir twice daily for 5 days No Action levothyroxine [Synthroid] 25 mcg tablet 25 mcg PO DAILY Qty: 30 11RF finasteride [Proscar] 5 mg tablet 5 mg PO DAILY Qty: 90 3RF tamsulosin 0.4 mg capsule 0.4 mg PO HS Qty: 90 3RF multivitamin Tablet 1 tab PO DAILY ergocalciferol (vitamin D2) [Vitamin D2] 50,000 unit Capsule 2,000 unit PO DAILY latanoprost 0.005 % drops 1 drp OPB DAILY aspirin [Aspir-Low] 81 mg Tablet,Delayed Release (Dr/Ec) 81 mg PO DAILY lorazepam 0.5 mg tablet 0.5 mg PO DIRECTED dorzolamide-timolol 22.3-6.8 mg/mL drops 1 drp OPB BID donepezil 10 mg tablet 10 mg PO DAILY metoprolol tartrate 25 mg tablet 12.5 mg PO BID Referrals Referrals: Yuni Elmore CRNP [Primary Care Provider] -
[2022-09-01] MEDS ORDERED: SODIUM CHLORIDE 0.9% 1000ML 1,000 ML IV SCH (16:30)
[2022-09-01 16:52] LABS: Appearance Urine Clear (Clear); Bacteria Urine Automated Negative (Negative); Bilirubin Urine Negative (Negative); Blood Urine Negative (Negative); Color Urine Dark Yellow; Epithelial Cell Urine Auto >30 /lpf (0-5); Glucose Urine UA Negative (Negative); Ketones Urine 1+ (Negative); Leukocyte Esterase Urine Negative (Negative); Nitrite Urine Negative (Negative); Protein Urine 1+ (Negative); Specific Gravity Urine 1.032 (1.000-1.030); Urobilinogen Urine Negative (Negative); pH Urine 6.5 (4.5-7.5)
--- NOTE | 2022-09-01 17:12 | XRay Report ---
SINGLE VIEW CHEST CLINICAL HISTORY: Sepsis. FINDINGS: An AP, portable, upright chest radiograph is compared to study dated 04/18/2021. Correlatio n is made with chest CT dated 11/18/2018. The examination is degraded by portable technique and patien t rotation. The heart is enlarged. There is pulmonary vascular congestion. Airspace consolidation is seen at the left lung base. Linear scarring/atelectasis is noted at the right lung base. Trace pleura l effusions are suspected. No pneumothorax is seen. The skeletal structures are osteopenic. The bony thorax is grossly intact. IMPRESSION: 1. Cardiomegaly with evidence of congestive failure. 2. Left basilar consolidation could represent scarring/atelectasis versus pneumonia/aspiration pneumo nitis. Clinical correlation will be required and radiographic follow-up to resolution is recommended. 3. Suspect trace pleural effusions. ACT 112: Negative or not required by law. Electronically signed by: Walt Vega M.D. 09/01/2022 5:10 PM
[2022-09-01] MEDS ORDERED: SODIUM CHLORIDE 0.9% 1000ML 500 ML IV ONE (17:15)
[2022-09-01 17:16] LABS: Albumin Level 3.9 gm/dl (3.4-5.0); BUN Creatinine Ratio 11.6 (10-20); Bilirubin Direct 0.1 mg/dl (0-0.2); Bilirubin,Total 0.6 mg/dl (0.2-1.0); Calcium 8.8 mg/dl (8.5-10.1); Creatinine Clr Calc Pharmacy 41.6 ml/min; Est GFR (African American) 41.4 ml/min; Est GFR (Non-African American) 35.7 ml/min; Magnesium 1.9 mg/dl (1.7-2.4); Potassium 4.7 mmol/L (3.5-5.1); Total Protein 6.7 gm/dl (6.0-8.3)
[2022-09-01 17:21] LABS: Troponin I High Sensitivity 8.4 pg/ml (0-20)
[2022-09-01 17:23] LABS: Basophils # (auto) 0.02 K/uL (0-0.2); Basophils % (auto) 0.3 %; Eosinophils # (auto) 0.02 K/uL (0-0.50); Eosinophils % (auto) 0.3 %; Hematocrit (blood only) 44.9 % (42.0-52.0); Hemoglobin 15.1 g/dl (14.0-18.0); Immature Granulocytes # (auto) 0.11 K/uL (0.01-0.20); Immature Granulocytes % (auto) 1.4 %; Lymphocytes # (auto) 0.75 K/uL (1.2-3.4); Lymphocytes % (auto) 9.8 %; Mean Corpuscular Hemoglobin 30.9 pg (25.0-34.0); Mean Corpuscular Hgb Conc 33.6 g/dL (32.0-36.0); Mean Corpuscular Volume 91.8 fL (80.0-100.0); Mean Platelet Volume 10.8 fL (9.4-12.4); Monocytes # (auto) 1.03 K/uL (0.11-0.59); Monocytes % (auto) 13.5 %; Neutrophils # (auto) 5.71 K/uL (1.40-6.50); Neutrophils % (auto) 74.7 %; Platelet Count 143 K/uL (130-400); RDW Coefficient of Variation 12.8 % (11.5-14.5); RDW Standard Deviation 42.9 fL (36.4-46.3); Red Blood Count 4.89 M/uL (4.70-6.10); White Blood Count 7.64 K/ul (4.8-10.8)
[2022-09-01 17:31] LABS: INR 1.1 (0.9-1.1); Partial Thromboplastin Ratio 1.1; Partial Thromboplastin Time 29.1 Seconds (21.0-31.0); Prothrombin Time 11.9 Seconds (9.0-12.0)
[2022-09-01 17:37] LABS: Adenovirus PCR Not Detected (NotDetected); Bordetella parapertussis PCR Not Detected (NotDetected); Bordetella pertussis PCR Not Detected (NotDetected); Chlamydia pneumoniae PCR Not Detected (NotDetected); Coronavirus 229E PCR Not Detected (NotDetected); Coronavirus HKU1 PCR Not Detected (NotDetected); Coronavirus NL63 PCR Not Detected (NotDetected); Coronavirus OC43PCR Not Detected (NotDetected); Human Metapneumovirus PCR Not Detected (NotDetected); Influenza A PCR Not Detected (NotDetected); Influenza B PCR Not Detected (NotDetected); Mycoplasma pneumoniae PCR Not Detected (NotDetected); Parainfluenza Virus 1 PCR Not Detected (NotDetected); Parainfluenza Virus 2 PCR Not Detected (NotDetected); Parainfluenza Virus 3 PCR Not Detected (NotDetected); Parainfluenza Virus 4 PCR Not Detected (NotDetected); Respiratory Syncytial VirusPCR Not Detected (NotDetected); Rhinovirus/Enterovirus PCR Not Detected (NotDetected)
[2022-09-01] MEDS ORDERED: ALBUT/IPRATROP 3MG/0.5MG NEB 3 ML VIAL NEB STA (17:39)
[2022-09-01 17:50] LABS: Coronavirus CoV-2 (COVID19)PCR DETECTED (NotDetected)
--- NOTE | 2022-09-01 18:20 | History & Physical Report ---
Date of Service September 01, 2022 Assessment & Plan (1) COVID-19: Plan: Unclear onset of symptoms but possibly 2 days ago Vaccinated but not boosted O2 sats > 94% on room air on admission Recommend Paxlovid since stable on room air. Daughter to pick this up from outside pharmacy tomorrow and will give it once she brings it in Procalcitonin negative Hold tamsulosin while on Paxlovid and monitor for urine retention Incentive spirometer Flutter valve COVID isolation precautions (2) Elevated serum creatinine: Plan: Cr 1.72 up from 1.31. NSS 1.5L bolus given in ER. Will defer further IV fluids in favor of oral intake and repeat BMP in AM. (3) Acute confusion: Plan: Suspect secondary to COVID CT head negative for intracranial pathology (4) Weakness: Plan: Secondary to COVID PT/OT (5) Dementia with aggressive behavior: Plan: Continue donepezil Consider antipsychotics if he develops aggressive behavior Avoid lorazepam - noted he is prescribed this as an outpatient Plan VTE Prophylaxis - Lovenox 40mg SQ daily Diet - regular Disposition - observation status to med/surg Admission and Anticipated Discharge Date Admission Date: September 02, 2022 History of Present Illness Chief Complaint: Altered mental state Primary Care Provider: CHAY Brooks Shamir Castañeda is an 86 year old male with dementia who presents to the ER with altered mental state. Unable to get any history from the patient due to underlying dementia. He says words but not making sentences or any sense. His reports he started having upper respiratory symptoms with nasal congestion, cough and shortness of breath 2 days ago. She is also having flu-like symptoms and is on antibiotics from her PCP. No known fever, chills, sinus pain, chest pain, abdominal pain or diarrhea. He has baseline dementia but much more confused today with generalized weakness meant he slid out of his recliner today. On discussion with his and daughter over the phone they wish him to be full code at this time. In the ER SARS-COV-2 PCR was positive. He was referred to medicine for admission and ongoing management for altered mental state, pneumonia and COVID. Allergies Allergy/AdvReac Type Severity Reaction Status Date / Time prednisone Allergy Mild Agitated Verified 09/01/22 17:51 Home Medications Medication Instructions Recorded Confirmed Type ergocalciferol (vitamin D2) 1,250 2,000 unit PO DAILY 04/15/18 09/01/22 History mcg (50,000 unit) capsule (Vitamin D2) multivitamin 1 tab PO DAILY 08/15/20 09/01/22 History latanoprost 0.005 % eye drops 1 drp OPB DAILY 07/07/21 09/01/22 History finasteride 5 mg tablet (Proscar) 5 mg PO DAILY #90 tabs 11/20/21 09/01/22 Rx tamsulosin 0.4 mg capsule 0.4 mg PO HS #90 caps 11/20/21 09/01/22 Rx levothyroxine 25 mcg tablet 25 mcg PO DAILY #30 tabs 05/12/22 09/01/22 Rx (Synthroid) aspirin 81 mg tablet,delayed 81 mg PO DAILY 09/01/22 09/01/22 History release donepezil 10 mg tablet 10 mg PO DAILY 09/01/22 09/01/22 History dorzolamide 22.3 mg-timolol 6.8 1 drp OPB BID 09/01/22 09/01/22 History mg/mL eye drops lorazepam 0.5 mg tablet 0.5 mg PO DIRECTED 09/01/22 09/01/22 History metoprolol tartrate 25 mg tablet 12.5 mg PO BID 09/01/22 09/01/22 History nirmatrelvir 150 mg-ritonavir 100 See Rx Instructions PO .COMPLEX 09/01/22 Rx mg tablets in a dose pack (EUA) #20 ea (Paxlovid) Past Med/Surg History Medical History Benign prostatic hyperplasia with urinary obstruction Diverticulosis Frequent urination at night Glaucoma Hyperlipidemia Pneumonia Supraventricular tachycardia, nonsustained Tubular adenoma Vitamin D deficiency Surgical History No history of previous surgery Family History Denies family history of Ovarian cancer Prostate cancer Myocardial infarction Breast cancer Colorectal cancer Social History Smoking Status: Never smoker Second Hand Exposure: No; Hx Alcohol Use: No Hx Substance Use: No Preferred Language: Azeri Communication Ability: Unable Hearing Ability: Hard of Hearing Canal Structure Operator Required: No Beliefs That Will Affect Care: None marital status: Current Living Situation: Spouse current occupational status: retired How many Children do You have: 6 Feels Safe at Home: Yes Childhood Exposure to Second-Hand Smoke: No caffeine: Yes Dental Care, Regularly: No Physical Activity Frequency: Daily Seatbelt Use: never Sunscreen Use: No Assistive Devices: Denture - Upper, Glasses and Walker Review of Systems Review of Systems: Unobtainable due to cognitive status Physical Exam Constitutional: well developed; + not well nourished and no acute distress Eyes: PERRL, conjunctivae normal, anicteric sclerae Respiratory: normal respiratory effort; no respiratory distress Auscultation: + rhonchi (bilateral anterior, not compliant for posterior exam); breath sounds present, no diminished lung sounds and no wheezes Cardiovascular: RRR, no murmur, no edema Gastrointestinal (Abdomen): normal bowel sounds, soft, nontender, no hepatosplenomegaly Musculoskeletal: no cyanosis or clubbing, extremities motor strength 5/5 Skin: Trauma: + evidence of skin trauma (mild lacerations on b/l lower extremities without surrounding cellulitis) Neurologic: moves all extremities and awake; not confused Psychiatric: Orientation: alert; + not oriented x 3 Thought Process: + incoherent thought process Genitourinary: no CVA tenderness Results & Data Results & Data ([facility]) Vital Signs (Past 12 Hours) Vital Signs Temp Pulse Pulse BP BP Pulse Ox O2 Del Method 09/01/22 16:20 64 09/01/22 17:55 59 L 96 Room Air 09/01/22 17:39 55 L 115/59 L 95 Room Air 09/01/22 16:38 Room Air 09/01/22 16:38 60 107/60 91 Room Air 09/01/22 16:38 91 Room Air 09/01/22 16:31 36.6 C 60 107/60 91 Room Air Laboratory Results Abnormal lab results 09/01/22 09/01/22 09/01/22 Range/Units 16:40 16:40 16:45 Lymph # (Auto) 0.75 L (1.2-3.4) K/uL Eddy # (Auto) 1.03 H (0.11-0.59) K/uL Creatinine (0.6-1.4) mg/dl B-Natriuretic Peptide (0-100) pg/ml Ur Specific [place] 1.032 H (1.000-1.030) Urine Protein 1+ H (Negative) Urine Ketones 1+ H (Negative) Urine RBC (Auto) 5-10 H (0-4) /hpf U Hyaline Cast (Auto) 5-10 H (0-5) /lpf U Epithel Cells (Auto) >30 H (0-5) /lpf SARS-CoV-2 (PCR) DETECTED A* (NotDetected) 09/01/22 09/01/22 Range/Units 16:45 16:45 Lymph # (Auto) (1.2-3.4) K/uL Eddy # (Auto) (0.11-0.59) K/uL Creatinine 1.72 H (0.6-1.4) mg/dl B-Natriuretic Peptide 168 H (0-100) pg/ml Ur Specific [place] (1.000-1.030) Urine Protein (Negative) Urine Ketones (Negative) Urine RBC (Auto) (0-4) /hpf U Hyaline Cast (Auto) (0-5) /lpf U Epithel Cells (Auto) (0-5) /lpf SARS-CoV-2 (PCR) (NotDetected) Diagnostic Findings SINGLE VIEW CHEST CLINICAL HISTORY: Sepsis. FINDINGS: An AP, portable, upright chest radiograph is compared to study dated 04/18/2021. Correlation is made with chest CT dated 11/18/2018. The examination is degraded by portable technique and patient rotation. The heart is enlarged. There is pulmonary vascular congestion. Airspace consolidation is seen at the left lung base. Linear scarring/atelectasis is noted at the right lung base. Trace pleural effusions are suspected. No pneumothorax is seen. The skeletal structures are osteopenic. The bony thorax is grossly intact. IMPRESSION: 1. Cardiomegaly with evidence of congestive failure. 2. Left basilar consolidation could represent scarring/atelectasis versus pneumonia/aspiration pneumonitis. Clinical correlation will be required and radiographic follow-up to resolution is recommended. 3. Suspect trace pleural effusions. Medications Administered ER Medications Given: NSS 1L bolus Cefepime 2g IV NSS 500 ml bolus Duoneb 3ml ECG Indication: altered mental status and SOB/dyspnea Rate (beats per minute): 66 Rhythm: normal sinus Findings: + 1st degree AV block Comparison ECG Date: from (Jul 09, 2021) Change: the following changes noted (PACs no longer present) Code Status & VTE Plan Code Status Full as discussed with his and daughter over the phone VTE Prophylaxis Plan VTE Prophylaxis will be ordered: Yes PG Care Time/CCT Total # of Minutes Spent Total Time Spent with Patient: Total time spent is greater than 50% in coordination of care (as documented) at patient's floor/unit and/or counseling patient: Coding Level of Care Code 64081 INT INP/OBS CARE 3/75MIN Diagnoses COVID-19 U07.1 Elevated serum creatinine R79.89 Acute confusion R41.0 Weakness R53.1 Dementia with aggressive behavior F03.91
--- NOTE | 2022-09-01 18:23 | CT Scan Report ---
CT SCAN OF THE BRAIN WITHOUT IV CONTRAST CLINICAL HISTORY: Delirium. COMPARISON STUDY: No priors. TECHNIQUE: Unenhanced axial CT scan of the brain is performed from the vertex to the skull base. A do se lowering technique was utilized adhering to the principles of ALARA. CT DOSE: 884.08 mGy.cm FINDINGS: Brain parenchyma: There is age-related involutional change noting moderate subcortical and periventri cular microangiopathic disease. There is no hemorrhage, mass effect, or evidence of acute territorial ischemia by CT criteria. Marques-white matter differentiation is preserved. No extra-axial fluid collec tion is seen. Ventricles, sulci, cisterns: Prominent secondary to involutional change. Intracranial vasculature: There is atherosclerotic calcification of the cavernous carotid and vertebr al arteries. Calvarium: Unremarkable. Soft tissues: There is a 2.0 cm calcified sebaceous cyst in the right posterior parietal scalp. Sinuses and mastoids: The visualized paranasal sinuses are clear. There is a large right mastoid effu antony and fluid in the right middle ear. There is a small mastoid effusion on the left. Orbits: The bony orbits are grossly intact. There are bilateral ocular lens implants. IMPRESSION: There is no hemorrhage, mass effect, or evidence of acute territorial ischemia by CT sherman hardin. ACT 112: Negative or not required by law. Electronically signed by: Walt Vega M.D. 09/01/2022 6:21 PM
[2022-09-01 19:08] LABS: C Reactive Protein 2.21 mg/dl (0-0.5)
[2022-09-01] MEDS ORDERED: PAXLOVID PO SCH (21:00)
[2022-09-01] MEDS ORDERED: ONDANSETRON INJ 2 MG/ML 2 ML VIAL IV PRN (22:08)
[2022-09-01] MEDS: METOPROLOL TARTRATE 25 MG TAB PO SCH (23:48)
[2022-09-01] MEDS: DORZOLAMIDE/TIMOLOL 22.3/6.8MG/ML 10 ML BTL OPB SCH (23:48)
[2022-09-02] MEDS: ENOXAPARIN INJ 40 MG/0.4 ML SYR SQ SCH ×2 (00:36→21:26)
[2022-09-02] MEDS: LEVOTHYROXINE SODIUM 25 MCG TABLET PO SCH ×2 (05:41→21:29)
[2022-09-02] MEDS: CHOLECALCIFEROL 1,000 UNITS 25 MCG TAB PO SCH (08:17)
[2022-09-02] MEDS: DONEPEZIL HCL 10 MG TAB PO SCH (08:17)
[2022-09-02] MEDS: MULTIVITAMIN TAB PO SCH (08:17)
[2022-09-02] MEDS: ASPIRIN 81 MG ECTAB PO SCH (08:17)
[2022-09-02] MEDS: FINASTERIDE 5 MG TAB PO SCH (08:17)
[2022-09-02] MEDS: METOPROLOL TARTRATE 25 MG TAB PO SCH ×2 (08:18→21:28)
[2022-09-02] MEDS: ACETAMINOPHEN 325 MG TAB PO PRN (08:18)
[2022-09-02] MEDS: LATANOPROST 0.005% OP SOLN 2.5 ML BTL OPB SCH (08:19)
[2022-09-02] MEDS: DORZOLAMIDE/TIMOLOL 22.3/6.8MG/ML 10 ML BTL OPB SCH ×2 (08:19→21:27)
[2022-09-02 09:10] LABS: Basophils # (auto) 0.03 K/uL (0-0.2); Basophils % (auto) 0.4 %; Hematocrit (blood only) 44.7 % (42.0-52.0); Hemoglobin 15.1 g/dl (14.0-18.0); Immature Granulocytes # (auto) 0.02 K/uL (0.01-0.20); Immature Granulocytes % (auto) 0.3 %; Lymphocytes # (auto) 1.42 K/uL (1.2-3.4); Lymphocytes % (auto) 18.7 %; Mean Corpuscular Hemoglobin 31.4 pg (25.0-34.0); Mean Corpuscular Hgb Conc 33.8 g/dL (32.0-36.0); Mean Corpuscular Volume 92.9 fL (80.0-100.0); Mean Platelet Volume 10.9 fL (9.4-12.4); Monocytes # (auto) 1.29 K/uL (0.11-0.59); Neutrophils # (auto) 4.83 K/uL (1.40-6.50); Neutrophils % (auto) 63.6 %; Platelet Count 141 K/uL (130-400); RDW Coefficient of Variation 13.1 % (11.5-14.5); RDW Standard Deviation 44.9 fL (36.4-46.3); Red Blood Count 4.81 M/uL (4.70-6.10); White Blood Count 7.59 K/ul (4.8-10.8)
[2022-09-02 09:26] LABS: BUN Creatinine Ratio 12.3 (10-20); Calcium 8.9 mg/dl (8.5-10.1); Creatinine Clr Calc Pharmacy 44.2 ml/min; Est GFR (African American) 44.5 ml/min; Est GFR (Non-African American) 38.4 ml/min; Potassium 4.4 mmol/L (3.5-5.1)
--- NOTE | 2022-09-02 14:08 | Hospitalist Progress Note ---
Date of Service September 02, 2022 Assessment & Plan (1) COVID-19: Plan: Unclear onset of symptoms but possibly 2 days ago Vaccinated but not boosted O2 sats > 94% on room air on admission Ordered Paxlovid since stable on room air. Procalcitonin negative Hold tamsulosin while on Paxlovid and monitor for urine retention Incentive spirometer Flutter valve COVID isolation precautions (2) Elevated serum creatinine: Plan: Cr 1.72 up from 1.31. NSS 1.5L bolus given in ER. Today creatinine is down to 1.6 We will resume IV fluids at 100 mils an hour Check BMP in a.m. (3) Acute confusion: Plan: Suspect secondary to COVID CT head negative for intracranial pathology Hospital-acquired delirium is probably playing a role as well. Will start Zyprexa 2.5 mg p.o. nightly to help establish healthy sleep-wake cycle (4) Weakness: Plan: Secondary to COVID PT/OT Patient will likely need [facility] placement spoke to daughter (5) Dementia with aggressive behavior: Plan: Continue donepezil Started dose of Zyprexa Avoid lorazepam - noted he is prescribed this as an outpatient Plan VTE Prophylaxis - Lovenox 40mg SQ daily Diet - regular Disposition: Likely will need [facility] placement Admission and Anticipated Discharge Date Admission Date: September 01, 2022 Subjective Patient is very hard of hearing. Spoke to daughter on the phone. Review of Systems Review of Systems: Other Unobtainable as the patient is very hard of hearing Physical Exam Physical Exam: General: Awake, conversant, pleasantly confused Heart: S1, S2/regular rate and rhythm, no murmur rubs or gallops Lungs: Clear to auscultation bilaterally. Normal effort Abdomen: Soft/nontender/nondistended. No hepatosplenomegaly Extremities: No clubbing/cyanosis. No edema Behavior: Appropriate, cooperative Results & Data Results & Data Vital Signs (Past 12 Hours) Vital Signs Temp Pulse Resp BP Pulse Ox O2 Del Method 09/02/22 08:02 Room Air 09/02/22 08:16 37.2 C 69 16 134/69 95 Room Air Laboratory Results Abnormal lab results 09/01/22 09/01/22 09/01/22 Range/Units 16:40 16:45 16:45 Lymph # (Auto) 0.75 L (1.2-3.4) K/uL Fallon # (Auto) 1.03 H (0.11-0.59) K/uL Chloride (98-107) mmol/L Creatinine (0.6-1.4) mg/dl C-Reactive Protein 2.21 H (0-0.5) mg/dl B-Natriuretic Peptide (0-100) pg/ml SARS-CoV-2 (PCR) DETECTED A* (NotDetected) 09/01/22 09/02/22 09/02/22 Range/Units 16:45 08:05 08:05 Lymph # (Auto) (1.2-3.4) K/uL Fallon # (Auto) 1.29 H (0.11-0.59) K/uL Chloride 108 H (98-107) mmol/L Creatinine 1.62 H (0.6-1.4) mg/dl C-Reactive Protein (0-0.5) mg/dl B-Natriuretic Peptide 168 H (0-100) pg/ml SARS-CoV-2 (PCR) (NotDetected) Diagnostic Findings Head CT 09/01/22 16:20 CT SCAN OF THE BRAIN WITHOUT IV CONTRAST CLINICAL HISTORY: Delirium. COMPARISON STUDY: No priors. TECHNIQUE: Unenhanced axial CT scan of the brain is performed from the vertex to the skull base. A dose lowering technique was utilized adhering to the principles of ALARA. CT DOSE: 884.08 mGy.cm FINDINGS: Brain parenchyma: There is age-related involutional change noting moderate subcortical and periventricular microangiopathic disease. There is no hemorrhage, mass effect, or evidence of acute territorial ischemia by CT criteria. Marques-white matter differentiation is preserved. No extra-axial fluid collection is seen. Ventricles, sulci, cisterns: Prominent secondary to involutional change. Intracranial vasculature: There is atherosclerotic calcification of the cavernous carotid and vertebral arteries. Calvarium: Unremarkable. Soft tissues: There is a 2.0 cm calcified sebaceous cyst in the right posterior parietal scalp. Sinuses and mastoids: The visualized paranasal sinuses are clear. There is a large right mastoid effusion and fluid in the right middle ear. There is a small mastoid effusion on the left. Orbits: The bony orbits are grossly intact. There are bilateral ocular lens implants. IMPRESSION: There is no hemorrhage, mass effect, or evidence of acute territorial ischemia by CT criteria. ACT 112: Negative or not required by law. Electronically signed by: Walt Vega M.D. 09/01/2022 6:21 PM PG Care Time/CCT Total # of Minutes Spent Total Time Spent: 35 Total Time Spent with Patient: I spent 35 minutes in the care of this patient. The time was spent in talking to the patient, nurse, family, care management team, reviewing the chart, formulating plan and placing the orders accordingly. Coding Level of Care Code 64526 SUB INP/OBS CARE 2/35MIN Diagnoses COVID-19 U07.1 Elevated serum creatinine R79.89 Acute confusion R41.0 Weakness R53.1 Dementia with aggressive behavior F03.91
[2022-09-02] MEDS: SODIUM CHLORIDE 0.9% 1000ML 1,000 ML IV SCH (21:25)
[2022-09-02] MEDS: OLANZAPINE 2.5 MG TAB PO SCH (21:27)
[2022-09-02] MEDS: RITONAVIR PO SCH (21:28)
[2022-09-02] MEDS: NIRMATRELVIR PO SCH (21:29)
[2022-09-03] MEDS: SODIUM CHLORIDE 0.9% 1000ML 1,000 ML IV SCH (07:51)
[2022-09-03] MEDS: FINASTERIDE 5 MG TAB PO SCH (08:51)
[2022-09-03] MEDS: MULTIVITAMIN TAB PO SCH (08:51)
[2022-09-03] MEDS: ASPIRIN 81 MG ECTAB PO SCH (08:52)
[2022-09-03] MEDS: CHOLECALCIFEROL 1,000 UNITS 25 MCG TAB PO SCH (08:52)
[2022-09-03] MEDS: DONEPEZIL HCL 10 MG TAB PO SCH (08:52)
[2022-09-03] MEDS: METOPROLOL TARTRATE 25 MG TAB PO SCH ×2 (08:53→21:57)
[2022-09-03] MEDS: LATANOPROST 0.005% OP SOLN 2.5 ML BTL OPB SCH (08:54)
[2022-09-03] MEDS: DORZOLAMIDE/TIMOLOL 22.3/6.8MG/ML 10 ML BTL OPB SCH ×2 (08:56→21:57)
[2022-09-03] MEDS: RITONAVIR PO SCH (09:05)
[2022-09-03] MEDS: NIRMATRELVIR PO SCH (09:13)
[2022-09-03 09:15] LABS: Calcium 8.2 mg/dl (8.5-10.1); Creatinine Clr Calc Pharmacy 47.8 ml/min; Est GFR (African American) 48.8 ml/min; Est GFR (Non-African American) 42.1 ml/min; Potassium 3.9 mmol/L (3.5-5.1)
--- NOTE | 2022-09-03 12:18 | Hospitalist Progress Note ---
Date of Service September 03, 2022 Assessment & Plan (1) Acute respiratory failure with hypoxia: Plan: Most likely secondary to COVID-pneumonia versus fluid overload Was given IV Lasix with good diuretic response Insert Mcginnis catheter for monitoring of ins and outs We will treat COVID-pneumonia with Decadron and remdesivir (2) Pneumonia due to COVID-19 virus: Plan: Patient initially was relatively asymptomatic with his COVID However, now he is hypoxic, coughing, short of breath He was started on Paxlovid initially We will discontinue Paxlovid and start him on Decadron and remdesivir Incentive spirometer Flutter valve COVID isolation precautions (3) ANSHUL (acute kidney injury): Plan: Cr 1.72 up from 1.31. NSS 1.5L bolus given in ER. Was given IV fluids, now with shortness of breath and cough Chest x-ray shows fluid overload IV Lasix given Monitor ins and outs (4) Weakness: Plan: Secondary to COVID PT/OT Patient will likely need [facility] placement spoke to daughter (5) Dementia with aggressive behavior: Plan: Continue donepezil Started dose of Zyprexa Avoid lorazepam - noted he is prescribed this as an outpatient (6) Metabolic encephalopathy: Plan: Suspect secondary to COVID CT head negative for intracranial pathology Hospital-acquired delirium is probably playing a role as well. Will continue Zyprexa 2.5 mg p.o. nightly to help establish healthy sleep-wake cycle Plan VTE Prophylaxis - Lovenox 40mg SQ daily Diet - regular Disposition: Likely will need penitentiary placement Admission and Anticipated Discharge Date Admission Date: September 02, 2022 Subjective Patient is very hard of hearing and confused. Has no complaints. When I saw the patient earlier this morning, he was noted to be slightly short of breath. Review of Systems Review of Systems: Other Unobtainable due to hard of hearing Physical Exam Physical Exam: General: Awake, conversant, pleasantly confused Heart: S1, S2/regular rate and rhythm, no murmur rubs or gallops Lungs: Bibasilar crackles. Normal effort Abdomen: Soft/nontender/nondistended. No hepatosplenomegaly Extremities: No clubbing/cyanosis. No edema Behavior: Appropriate, cooperative Results & Data Results & Data Vital Signs (Past 12 Hours) Vital Signs Temp Pulse Resp BP Pulse Ox O2 Del Method 09/03/22 09:30 Room Air 09/03/22 08:47 37.6 C H 62 18 124/62 96 Room Air Laboratory Results Abnormal lab results 09/03/22 Range/Units 08:18 Chloride 109 H (98-107) mmol/L Creatinine 1.50 H (0.6-1.4) mg/dl Calcium 8.2 L (8.5-10.1) mg/dl Diagnostic Findings Chest X-Ray 09/03/22 12:39 XR chest 1V portable HISTORY: Cough, shortness of breath. Pneumonia versus CHF? COMPARISON: Chest 09/01/2022. FINDINGS: Slightly rotated study. No pneumothorax. The heart remains mildly enlarged. There is diffuse interstitial thickening consistent with mild pulmonary edema. This remains unchanged. Old, healed left-sided rib fractures again noted. Left basilar densities favor subsegmental atelectasis. Probable trace bilateral pleural effusions. IMPRESSION: 1. No change in the cardiomegaly and mild interstitial thickening suggestive of pulmonary edema. 2. Suspect trace bilateral pleural effusions. ACT 112: Negative or not required by law. Electronically signed by: Joesph Oliva M.D. 09/03/2022 1:24 PM PG Care Time/CCT Total # of Minutes Spent Total Time Spent: 35 Total Time Spent with Patient: I spent 35 minutes in the care of this patient. The time was spent in talking to the patient, daughter, nurse, care management team, reviewing the chart, formulating plan and placing the orders accordingly. Coding Level of Care Code 30433 SUB INP/OBS CARE 2/35MIN Diagnoses Acute respiratory failure with hypoxia J96.01 Pneumonia due to COVID-19 virus U07.1; J12.82 ANSHUL (acute kidney injury) N17.9 Weakness R53.1 Dementia with aggressive behavior F03.91 Metabolic encephalopathy G93.41
--- NOTE | 2022-09-03 13:25 | XRay Report ---
XR chest 1V portable HISTORY: Cough, shortness of breath. Pneumonia versus CHF? COMPARISON: Chest 09/01/2022. FINDINGS: Slightly rotated study. No pneumothorax. The heart remains mildly enlarged. There is diffus e interstitial thickening consistent with mild pulmonary edema. This remains unchanged. Old, healed l eft-sided rib fractures again noted. Left basilar densities favor subsegmental atelectasis. Probable trace bilateral pleural effusions. IMPRESSION: 1. No change in the cardiomegaly and mild interstitial thickening suggestive of pulmonary edema. 2. Suspect trace bilateral pleural effusions. ACT 112: Negative or not required by law. Electronically signed by: Joesph Oliva M.D. 09/03/2022 1:24 PM
[2022-09-03] MEDS ORDERED: FUROSEMIDE 40 MG/4 ML VIAL IV ONE (13:45)
[2022-09-03] MEDS: ACETAMINOPHEN 325 MG TAB PO PRN (17:04)
[2022-09-03] MEDS ORDERED: REMDESIVIR 200 MG in SODIUM CHLORIDE 0.9% 210 ML IV STA (17:06)
[2022-09-03] MEDS: dexAMETHasone 6 MG in SYRINGE 0 ML IV SCH (17:59)
[2022-09-03] MEDS: ENOXAPARIN INJ 40 MG/0.4 ML SYR SQ SCH (21:57)
[2022-09-03] MEDS: OLANZAPINE 2.5 MG TAB PO SCH (21:57)
[2022-09-04] MEDS: LEVOTHYROXINE SODIUM 25 MCG TABLET PO SCH (05:42)
--- NOTE | 2022-09-04 05:44 | Electrocardiogram Report ---
Test Reason : Blood Pressure : / mmHG Vent. Rate : 055 BPM Atrial Rate : 055 BPM P-R Int : 240 ms QRS Dur : 098 ms QT Int : 422 ms P-R-T Axes : 023 -41 019 degrees QTc Int : 403 ms Sinus bradycardia with 1st degree A-V block Left axis deviation Abnormal ECG When compared with ECG of 09-JUL-2021 09:10, Premature atrial complexes are no longer Present AL interval has increased Vent. rate has decreased BY 42 BPM QT has shortened Confirmed by Jesus Alvarenga ([id number]) on 09/04/2022 5:44:52 AM Referred By: REFERRED SELF Confirmed By:Jesus Alvarenga
--- NOTE | 2022-09-04 05:55 | Electrocardiogram Report ---
Test Reason : Blood Pressure : / mmHG Vent. Rate : 066 BPM Atrial Rate : 066 BPM P-R Int : 246 ms QRS Dur : 098 ms QT Int : 410 ms P-R-T Axes : 012 -44 014 degrees QTc Int : 429 ms Sinus rhythm with 1st degree A-V block Left axis deviation Poor R wave progression, consider anterior MO vs. lead placement vs. LVH Abnormal ECG When compared with ECG of 01-SEP-2022 16:44, No significant change was found Confirmed by Jesus Alvarenga ([id number]) on 09/04/2022 5:54:46 AM Referred By: REFERRED SELF Confirmed By:Jesus Alvarenga
[2022-09-04] MEDS: LATANOPROST 0.005% OP SOLN 2.5 ML BTL OPB SCH (08:10)
[2022-09-04] MEDS: METOPROLOL TARTRATE 25 MG TAB PO SCH ×2 (08:10→22:19)
[2022-09-04] MEDS: FINASTERIDE 5 MG TAB PO SCH (08:31)
[2022-09-04] MEDS: MULTIVITAMIN TAB PO SCH (08:32)
[2022-09-04] MEDS: ASPIRIN 81 MG ECTAB PO SCH (08:32)
[2022-09-04] MEDS: CHOLECALCIFEROL 1,000 UNITS 25 MCG TAB PO SCH (08:32)
[2022-09-04] MEDS: dexAMETHasone 6 MG in SYRINGE 0 ML IV SCH (08:32)
[2022-09-04] MEDS: DONEPEZIL HCL 10 MG TAB PO SCH ×2 (08:32→22:08)
[2022-09-04] MEDS: DORZOLAMIDE/TIMOLOL 22.3/6.8MG/ML 10 ML BTL OPB SCH ×2 (08:33→22:30)
--- NOTE | 2022-09-04 09:58 | Palliative Care Consultation ---
Date of Consultation September 04, 2022 Assessment & Plan (1) Palliative care by specialist: pt is on covid isolation, combative and kicking at staff. he is not decisional. and dtr are HCPs they have elected dc to [facility] dementia unit for LTC they desire full code and all aggressive care this admission. recommend revisiting GOC with SNF clinical provider team once he is settled into dementia unit and out of acute medical crisis. (2) Acute respiratory failure with hypoxia: (3) Dementia: (4) Dementia with aggressive behavior: (5) SVT (supraventricular tachycardia): (6) Weakness: Plan No family meeting held as dispo plan is already decided and in planning. He should have an ACP follow up by his SNF clinicians with family when he is out of this medical crisis, family for now desire aggressive care and full code. I will sign off. Thank you for allowing us to participate in the ongoing care of this patient. Please don't hesitate to call or page with any additional concerns. Dr. Alanna Cantor DNP Director, Palliative Care History of Present Illness Reason for Consultation: On 09/04/22 @ 08:31 Vicky Rodriguez Wrote To Beatrice Haines 86 yo demented pt with Covid, agitated. Need GOC Attending Physician: Vicky Rodriguez MD History of Present Illness Shamir presented to ED via EMS after sliding out of his chair at home, growing weakness and increased cough reported by . He was found to be COVID + and started on paxlovid which was picked up at outside pharmacy and brought in by family. His and dtr are involved in medical decision making for pt who has advanced dementia and significant behav disturbances with aggressive tendencies noted on chart at baseline pt is nonsensical with speech, unable to follow commands and cannot meaningfully interact with examiner for HPI. he is not able to provide HPI. he is not decisional. PMH includes the following: Dementia with behav disturbance: aggressive behaviors at baseline BPH with urinary obstruction Diverticulosis Glaucoma Hyperlipidemia Supraventricular tachycardia, nonsustained Tubular adenoma Vitamin D deficiency Pt is agitated, combative and at times attempting to swing at or kick staff. Allergies Allergy/AdvReac Type Severity Reaction Status Date / Time prednisone Allergy Mild Agitated Verified 09/01/22 17:51 Home Medications Medication Instructions Recorded Confirmed Type ergocalciferol (vitamin D2) 1,250 2,000 unit PO DAILY 04/15/18 09/01/22 History mcg (50,000 unit) capsule (Vitamin D2) multivitamin 1 tab PO DAILY 08/15/20 09/01/22 History latanoprost 0.005 % eye drops 1 drp OPB DAILY 07/07/21 09/01/22 History finasteride 5 mg tablet (Proscar) 5 mg PO DAILY #90 tabs 11/20/21 09/01/22 Rx tamsulosin 0.4 mg capsule 0.4 mg PO HS #90 caps 11/20/21 09/01/22 Rx levothyroxine 25 mcg tablet 25 mcg PO DAILY #30 tabs 05/12/22 09/01/22 Rx (Synthroid) aspirin 81 mg tablet,delayed 81 mg PO DAILY 09/01/22 09/01/22 History release donepezil 10 mg tablet 10 mg PO DAILY 09/01/22 09/01/22 History dorzolamide 22.3 mg-timolol 6.8 1 drp OPB BID 09/01/22 09/01/22 History mg/mL eye drops lorazepam 0.5 mg tablet 0.5 mg PO DIRECTED 09/01/22 09/01/22 History metoprolol tartrate 25 mg tablet 12.5 mg PO BID 09/01/22 09/01/22 History nirmatrelvir 150 mg-ritonavir 100 See Rx Instructions PO .COMPLEX 09/01/22 Rx mg tablets in a dose pack (EUA) #20 ea (Paxlovid) Patient History Medical History (Updated 09/04/22 @ 09:57 by Alanna Cantor, [facility]) Benign prostatic hyperplasia with urinary obstruction Dementia Discussion about advance care planning held with family member Diverticulosis Frequent urination at night Glaucoma Hyperlipidemia Palliative care by specialist Pneumonia Supraventricular tachycardia, nonsustained Tubular adenoma Vitamin D deficiency Surgical History No history of previous surgery Family History Denies family history of Ovarian cancer Prostate cancer Myocardial infarction Breast cancer Colorectal cancer Social History Smoking Status: Unknown if ever smoked Second Hand Exposure: No; Hx Alcohol Use: No Hx Substance Use: No Preferred Language: [place] Communication Ability: Impaired Communication Ability Comment: Very hard of hearing Hearing Ability: Hard of Hearing State Historical [employer] Director Required: No Beliefs That Will Affect Care: None marital status: Current Living Situation: Spouse and Family current occupational status: retired How many Children do You have: 6 Other Information That Helps Us Care for You: No Feels Safe at Home: Yes Safety Concerns: Feels Safe At This Time Childhood Exposure to Second-Hand Smoke: No caffeine: Yes Dental Care, Regularly: No Physical Activity Frequency: Daily Seatbelt Use: never Sunscreen Use: No Assistive Devices: Cane and Hearing Aid - Bilateral Assistive Devices Comment: SHEREE Review of Systems Review of Systems: Unobtainable due to cognitive status Physical Exam Physical Exam: deferred; pt combative, kicking/punching at staff, very agitated, on covid isolation and not able to cooperate with exam Results & Data Vital Signs (Past 12 Hours) Vital Signs Temp Pulse Resp BP Pulse Ox O2 Del Method O2 Flow Rate 09/04/22 08:08 36.5 C 53 L 20 128/79 92 Nasal Cannula 3 09/04/22 05:30 97 Nasal Cannula 4 09/04/22 05:56 50 L 09/04/22 03:56 48 L 16 120/78 96 Nasal Cannula 4 09/04/22 02:15 36.7 C 45 L 14 119/72 97 Nasal Cannula 4 Laboratory Results reviewed Diagnostic Findings reviewed PG Care Time/CCT Total # of Minutes Spent Total Time Spent: 35 Total Time Spent with Patient: Total time spent is greater than 50% in coordination of care (as documented) at patient's floor/unit and/or counseling patient: [place] [address] IN/OBS CONSULT LVL 4,60M Patient Type New History Detailed Exam Problem Focused Medical Decision Making Low Complexity Diagnoses Palliative care by specialist Z51.5 Acute respiratory failure with hypoxia J96.01 Dementia F03.90 Dementia with aggressive behavior F03.91 SVT (supraventricular tachycardia) I47.1 Weakness R53.1
[2022-09-04 10:19] LABS: Hematocrit (blood only) 45.3 % (42.0-52.0); Hemoglobin 15.4 g/dl (14.0-18.0); Mean Corpuscular Volume 91.3 fL (80.0-100.0); Mean Platelet Volume 11.1 fL (9.4-12.4); Platelet Count 130 K/uL (130-400); RDW Coefficient of Variation 13.2 % (11.5-14.5); RDW Standard Deviation 44.3 fL (36.4-46.3); Red Blood Count 4.96 M/uL (4.70-6.10); White Blood Count 8.33 K/ul (4.8-10.8)
[2022-09-04 10:40] LABS: BUN Creatinine Ratio 18.9 (10-20); Calcium 8.6 mg/dl (8.5-10.1); Creatinine Clr Calc Pharmacy 48.4 ml/min; Est GFR (African American) 49.6 ml/min; Est GFR (Non-African American) 42.8 ml/min
--- NOTE | 2022-09-04 16:31 | Hospitalist Progress Note ---
Date of Service September 04, 2022 Assessment & Plan (1) Acute respiratory failure with hypoxia: Plan: Most likely secondary to COVID-pneumonia versus fluid overload Was given IV Lasix on 09/03 with good diuretic response Mcginnis catheter for monitoring of ins and outs We will treat COVID-pneumonia with Decadron and remdesivir (2) Pneumonia due to COVID-19 virus: Plan: Patient initially was relatively asymptomatic with his COVID However, now he is hypoxic, coughing, short of breath Now on Decadron and remdesivir Incentive spirometer Flutter valve COVID isolation precautions (3) ANSHUL (acute kidney injury): Plan: Cr 1.72 up from 1.31. NSS 1.5L bolus given in ER. Was given IV fluids, now with shortness of breath and cough Chest x-ray showed fluid overload 09/03 IV Lasix given 09/03. Creatinine down to 1.5. Monitor ins and outs (4) Weakness: Plan: Secondary to COVID PT/OT Patient will likely need shelter placement spoke to daughter (5) Dementia with aggressive behavior: Plan: Continue donepezil Started dose of Zyprexa Avoid lorazepam - noted he is prescribed this as an outpatient Patient continues aggressive behavior which is getting in the way of his treatment Now with a one-to-one sitter in the room Spoke to daughter about overall condition: Baseline dementia, advanced age, now with COVID, agitation getting in the way of his medical treatment. Daughter gave me the decision to change his CODE STATUS to a DNR/DNI. (6) Metabolic encephalopathy: Plan: Suspect secondary to COVID CT head negative for intracranial pathology Hospital-acquired delirium is probably playing a role as well. Will continue Zyprexa 2.5 mg p.o. nightly to help establish healthy sleep-wake cycle Plan VTE Prophylaxis - Lovenox 40mg SQ daily Diet - regular Code: DNR/DNI Disposition: Likely will need shelter placement Admission and Anticipated Discharge Date Admission Date: September 02, 2022 Subjective Patient has been quite agitated. Now has a one-to-one sitter in his room. Review of Systems Review of Systems: Other Unobtainable due to agitation and hard of hearing Physical Exam Physical Exam: General: Awake, conversant, agitated Did not allow me to examine him. Behavior: Slightly hostile Results & Data Results & Data Vital Signs (Past 12 Hours) Vital Signs Temp Pulse Resp BP Pulse Ox O2 Del Method O2 Flow Rate 09/04/22 14:43 36.3 C L 56 L 18 122/67 91 Room Air 09/04/22 11:05 36.3 C L 56 L 18 119/73 93 Nasal Cannula 3 09/04/22 08:08 36.5 C 53 L 20 128/79 92 Nasal Cannula 3 09/04/22 05:30 97 Nasal Cannula 4 09/04/22 05:56 50 L Laboratory Results Abnormal lab results 09/04/22 Range/Units 09:28 Chloride 108 H (98-107) mmol/L BUN 28 H (6-23) mg/dl Creatinine 1.48 H (0.6-1.4) mg/dl Glucose 168 H (70-99(Fasting)) mg/dl PG Care Time/CCT Total # of Minutes Spent Total Time Spent with Patient: Total time spent is greater than 50% in coordination of care (as documented) at patient's floor/unit and/or counseling patient: Coding Level of Care Code 56448 SUB INP/OBS CARE 2/35MIN Diagnoses Acute respiratory failure with hypoxia J96.01 Pneumonia due to COVID-19 virus U07.1; J12.82 ANSHUL (acute kidney injury) N17.9 Weakness R53.1 Dementia with aggressive behavior F03.91 Metabolic encephalopathy G93.41
[2022-09-04] MEDS: ENOXAPARIN INJ 40 MG/0.4 ML SYR SQ SCH (22:08)
[2022-09-04] MEDS: OLANZAPINE 2.5 MG TAB PO SCH (22:08)
[2022-09-04] MEDS: REMDESIVIR 100 MG in SODIUM CHLORIDE 0.9% 230 ML IV SCH (22:09)
[2022-09-05] MEDS: REMDESIVIR 100 MG in SODIUM CHLORIDE 0.9% 230 ML IV SCH ×2 (00:03→21:06)
[2022-09-05] MEDS: LEVOTHYROXINE SODIUM 25 MCG TABLET PO SCH (05:45)
[2022-09-05 07:07] LABS: Hematocrit (blood only) 44.4 % (42.0-52.0); Hemoglobin 15.5 g/dl (14.0-18.0); Mean Corpuscular Hemoglobin 31.3 pg (25.0-34.0); Mean Corpuscular Hgb Conc 34.9 g/dL (32.0-36.0); Mean Corpuscular Volume 89.5 fL (80.0-100.0); Mean Platelet Volume 11.2 fL (9.4-12.4); Platelet Count 152 K/uL (130-400); RDW Coefficient of Variation 12.7 % (11.5-14.5); Red Blood Count 4.96 M/uL (4.70-6.10); White Blood Count 16.26 K/ul (4.8-10.8)
[2022-09-05 07:34] LABS: BUN Creatinine Ratio 25.2 (10-20); Calcium 8.7 mg/dl (8.5-10.1); Creatinine Clr Calc Pharmacy 53.6 ml/min; Est GFR (African American) 59.7 ml/min; Est GFR (Non-African American) 51.5 ml/min; Potassium 3.9 mmol/L (3.5-5.1)
[2022-09-05] MEDS: ASPIRIN 81 MG ECTAB PO SCH (08:58)
[2022-09-05] MEDS: FINASTERIDE 5 MG TAB PO SCH (08:58)
[2022-09-05] MEDS: dexAMETHasone 6 MG in SYRINGE 0 ML IV SCH (08:58)
[2022-09-05] MEDS: CHOLECALCIFEROL 1,000 UNITS 25 MCG TAB PO SCH (08:58)
[2022-09-05] MEDS: MULTIVITAMIN TAB PO SCH (08:58)
[2022-09-05] MEDS: METOPROLOL TARTRATE 25 MG TAB PO SCH ×2 (08:59→21:33)
[2022-09-05] MEDS: LATANOPROST 0.005% OP SOLN 2.5 ML BTL OPB SCH (08:59)
[2022-09-05] MEDS: DORZOLAMIDE/TIMOLOL 22.3/6.8MG/ML 10 ML BTL OPB SCH ×2 (08:59→21:33)
--- NOTE | 2022-09-05 14:52 | Hospitalist Progress Note ---
Date of Service September 05, 2022 Assessment & Plan (1) Acute respiratory failure with hypoxia: Plan: Most likely secondary to COVID-pneumonia versus fluid overload Was given IV Lasix on 09/03 with good diuretic response Mcginnis catheter for monitoring of ins and outs Continue to treat COVID-pneumonia with Decadron and remdesivir Now requiring 4 L of oxygen (2) Pneumonia due to COVID-19 virus: Plan: Patient initially was relatively asymptomatic with his COVID However, now he is hypoxic Now on Decadron and remdesivir No evident respiratory distress at this time Incentive spirometer Flutter valve COVID isolation precautions (3) ANSHUL (acute kidney injury): Plan: Cr 1.72 up from 1.31. NSS 1.5L bolus given in ER. Was given IV fluids initially followed by shortness of breath and cough Chest x-ray showed fluid overload 09/03 IV Lasix given 09/03. Creatinine down Monitor ins and outs Resolved (4) Weakness: Plan: Secondary to COVID PT/OT Patient will likely need mcc placement spoke to daughter (5) Dementia with aggressive behavior: Plan: Continue donepezil Increase dose of Zyprexa Avoid lorazepam - noted he is prescribed this as an outpatient Patient continues aggressive behavior which is getting in the way of his treatment Now with a one-to-one sitter in the room and in restraints Spoke to daughter about overall condition: Baseline dementia, advanced age, now with COVID, agitation getting in the way of his medical treatment. Daughter gave me the decision to change his CODE STATUS to a DNR/DNI. (6) Metabolic encephalopathy: Plan: Suspect secondary to COVID CT head negative for intracranial pathology Hospital-acquired delirium is probably playing a role as well. Increase Zyprexa to 5 mg nightly to help establish healthy sleep-wake cycle (7) Delirium: Plan: Likely hospital-acquired delirium, on baseline dementia, worsened by COVID-p neumonia Increase the dose of Zyprexa Plan VTE Prophylaxis - Lovenox 40mg SQ daily Diet - regular Code: DNR/DNI Disposition: Likely will need [facility]cc placement Admission and Anticipated Discharge Date Admission Date: September 02, 2022 Subjective Patient did not sleep at all overnight. Was extremely agitated. Has a one-to-one sitter in the room. Is now in restraints. Per nurse, he is being combative with the staff Review of Systems Review of Systems: Unobtainable due to cognitive status Physical Exam Physical Exam: General: Awake, agitated, lying flat in bed and does not appear to be in any respiratory distress Did not allow me to examine him. Behavior: Slightly hostile Results & Data Results & Data Vital Signs (Past 12 Hours) Vital Signs Temp Pulse Resp BP Pulse Ox O2 Del Method O2 Flow Rate 09/05/22 10:32 Nasal Cannula 4 09/05/22 06:00 36.3 C L 54 L 18 120/70 91 Nasal Cannula 4 Laboratory Results Abnormal lab results 09/05/22 09/05/22 Range/Units 06:20 06:20 WBC 16.26 H (4.8-10.8) K/ul BUN 32 H (6-23) mg/dl BUN/Creatinine Ratio 25.2 H (10-20) Glucose 119 H (70-99(Fasting)) mg/dl PG Care Time/CCT Total # of Minutes Spent Total Time Spent: 35 Total Time Spent with Patient: I spent 35 minutes in the care of this patient. The time was spent in talking to the patient, daughter, nurse, care management team, reviewing the chart, formulating plan and placing the orders accordingly. Coding Level of Care Code 80103 SUB INP/OBS CARE 2/35MIN Diagnoses Acute respiratory failure with hypoxia J96.01 Pneumonia due to COVID-19 virus U07.1; J12.82 ANSHUL (acute kidney injury) N17.9 Weakness R53.1 Dementia with aggressive behavior F03.91 Metabolic encephalopathy G93.41 Delirium R41.0
[2022-09-05] MEDS: OLANZapine 5 MG TABLET PO SCH (21:33)
[2022-09-05] MEDS: ENOXAPARIN INJ 40 MG/0.4 ML SYR SQ SCH (21:34)
[2022-09-06 09:54] LABS: Hemoglobin 15.8 g/dl (14.0-18.0); Mean Corpuscular Hemoglobin 31.3 pg (25.0-34.0); Mean Corpuscular Hgb Conc 34.3 g/dL (32.0-36.0); Mean Corpuscular Volume 91.1 fL (80.0-100.0); Mean Platelet Volume 11.4 fL (9.4-12.4); Platelet Count 148 K/uL (130-400); RDW Coefficient of Variation 12.8 % (11.5-14.5); RDW Standard Deviation 42.6 fL (36.4-46.3); Red Blood Count 5.05 M/uL (4.70-6.10); White Blood Count 12.96 K/ul (4.8-10.8)
[2022-09-06 10:11] LABS: BUN Creatinine Ratio 32.3 (10-20); Calcium 8.6 mg/dl (8.5-10.1); Creatinine Clr Calc Pharmacy 54.9 ml/min; Est GFR (African American) 61.5 ml/min; Est GFR (Non-African American) 53.1 ml/min; Potassium 4.4 mmol/L (3.5-5.1)
[2022-09-06] MEDS: dexAMETHasone 6 MG in SYRINGE 0 ML IV SCH (11:00)
[2022-09-06] MEDS: FINASTERIDE 5 MG TAB PO SCH (11:20)
[2022-09-06] MEDS: ASPIRIN 81 MG ECTAB PO SCH (11:20)
[2022-09-06] MEDS: MULTIVITAMIN TAB PO SCH (11:21)
[2022-09-06] MEDS: CHOLECALCIFEROL 1,000 UNITS 25 MCG TAB PO SCH (11:21)
[2022-09-06] MEDS: LEVOTHYROXINE SODIUM 25 MCG TABLET PO SCH (11:21)
[2022-09-06] MEDS: DONEPEZIL HCL 10 MG TAB PO SCH (11:21)
[2022-09-06] MEDS: LATANOPROST 0.005% OP SOLN 2.5 ML BTL OPB SCH (11:22)
[2022-09-06] MEDS: METOPROLOL TARTRATE 25 MG TAB PO SCH ×2 (11:23→21:04)
[2022-09-06] MEDS: DORZOLAMIDE/TIMOLOL 22.3/6.8MG/ML 10 ML BTL OPB SCH ×2 (11:23→21:04)
--- NOTE | 2022-09-06 13:25 | Hospitalist Progress Note ---
Date of Service September 06, 2022 Assessment & Plan (1) Acute respiratory failure with hypoxia: Plan: Most likely secondary to COVID-pneumonia Does not appear fluid overloaded anymore. Was given IV Lasix on 09/03 with good diuretic response We will discontinue Mcginnis catheter Continue to treat COVID-pneumonia with Decadron and remdesivir requiring 4 L of oxygen (2) Pneumonia due to COVID-19 virus: Plan: Patient initially was relatively asymptomatic with his COVID However, now he is hypoxic Now on Decadron and remdesivir No evident respiratory distress at this time Incentive spirometer Flutter valve COVID isolation precautions (3) ANSHUL (acute kidney injury): Plan: Cr 1.72 up from 1.31. NSS Was given IV fluids initially followed by shortness of breath and cough Chest x-ray showed fluid overload 09/03 IV Lasix given 09/03. Resolved Monitor BMP closely. (4) Weakness: Plan: Secondary to COVID PT/OT Patient will likely need care home placement spoke to daughter (5) Dementia with aggressive behavior: Plan: Not as agitated anymore today. Was able to sleep for at least 4 hours overnight Continue Zyprexa at 5 mg Continue one-to-one sitter in the room for now Spoke to daughter in the past few days during this hospital stay about overall condition: Baseline dementia, advanced age, now with COVID, agitation getting in the way of his medical treatment. Daughter gave me the decision to change his CODE STATUS to a DNR/DNI. (6) Metabolic encephalopathy: Plan: Suspect secondary to COVID CT head negative for intracranial pathology Hospital-acquired delirium is probably playing a role as well. Increase Zyprexa to 5 mg nightly to help establish healthy sleep-wake cycle (7) Delirium: Plan: Likely hospital-acquired delirium, on baseline dementia, worsened by COVID- pneumonia Much better today with 5 mg of Zyprexa Continue Zyprexa Plan VTE Prophylaxis - Lovenox 40mg SQ daily Diet - regular Code: DNR/DNI Disposition: Likely will need care home placement Admission and Anticipated Discharge Date Admission Date: September 02, 2022 Subjective Per nurse, patient slept for 4 hours overnight. Per sitter, he has been much more cooperative today. He does not seem agitated. He is still quite hard of hearing and appears confused but much less hostile today. Spoke to the daughter to give her an update on the phone. Review of Systems Review of Systems: Unobtainable due to hard of hearing Physical Exam Physical Exam: General: Awake, pleasantly confused, hard of hearing. Lying flat in bed. Heart: S1, S2/regular rate and rhythm, no murmur rubs or gallops Lungs: Clear to auscultation bilaterally. Normal effort Abdomen: Soft/nontender/nondistended. No hepatosplenomegaly Extremities: No clubbing/cyanosis. No edema Behavior: Appropriate, cooperative Results & Data Results & Data Vital Signs (Past 12 Hours) Vital Signs Temp Pulse Resp BP Pulse Ox O2 Del Method O2 Flow Rate 09/06/22 08:00 36.6 C 46 L 18 111/68 96 Nasal Cannula 4 Laboratory Results Abnormal lab results 09/06/22 09/06/22 Range/Units 09:32 09:32 WBC 12.96 H (4.8-10.8) K/ul Chloride 112 H (98-107) mmol/L BUN 40 H (6-23) mg/dl BUN/Creatinine Ratio 32.3 H (10-20) Glucose 121 H (70-99(Fasting)) mg/dl PG Care Time/CCT Total # of Minutes Spent Total Time Spent with Patient: Total time spent is greater than 50% in coordination of care (as documented) at patient's floor/unit and/or counseling patient: Coding Level of Care Code 89746 SUB INP/OBS CARE 2/35MIN Diagnoses Acute respiratory failure with hypoxia J96.01 Pneumonia due to COVID-19 virus U07.1; J12.82 ANSHUL (acute kidney injury) N17.9 Weakness R53.1 Dementia with aggressive behavior F03.91 Metabolic encephalopathy G93.41 Delirium R41.0
[2022-09-06] MEDS: REMDESIVIR 100 MG in SODIUM CHLORIDE 0.9% 230 ML IV SCH (21:04)
[2022-09-06] MEDS: ENOXAPARIN INJ 40 MG/0.4 ML SYR SQ SCH (21:04)
[2022-09-06] MEDS: OLANZapine 5 MG TABLET PO SCH (21:04)
--- NOTE | 2022-09-07 05:34 | Communication Note ---
Date of Service: September 07, 2022 I was messaged about patient multiple times throughout the night in regards to urinary retention. Patient is noncooperative especially with the recommendation of having a straight cath or Mcginnis catheter placed. Latest urine volume measured by bladder scan was 485 cc. This is not a grossly large amount, so recommended utilization of Flomax in the morning to help relax the smooth muscle to help fully relieve his obstruction. If this fails, he may be more cooperative when the sun is out and he is more oriented. Risk of injuring patient now is higher than catheterizing him than benefit achieved of draining 450 cc of urine without patient cooperation. Will continue to monitor.
[2022-09-07] MEDS: LEVOTHYROXINE SODIUM 25 MCG TABLET PO SCH (05:53)
[2022-09-07] MEDS: ASPIRIN 81 MG ECTAB PO SCH (09:58)
[2022-09-07] MEDS: FINASTERIDE 5 MG TAB PO SCH (09:58)
[2022-09-07] MEDS: DORZOLAMIDE/TIMOLOL 22.3/6.8MG/ML 10 ML BTL OPB SCH ×2 (09:58→20:46)
[2022-09-07] MEDS: CHOLECALCIFEROL 1,000 UNITS 25 MCG TAB PO SCH (09:58)
[2022-09-07] MEDS: LATANOPROST 0.005% OP SOLN 2.5 ML BTL OPB SCH (09:59)
[2022-09-07] MEDS: MULTIVITAMIN TAB PO SCH (09:59)
[2022-09-07] MEDS: DONEPEZIL HCL 10 MG TAB PO SCH (11:08)
[2022-09-07] MEDS: dexAMETHasone 6 MG in SYRINGE 0 ML IV SCH (11:08)
[2022-09-07] MEDS: METOPROLOL TARTRATE 25 MG TAB PO SCH ×2 (11:09→20:46)
[2022-09-07] MEDS: TAMSULOSIN HCL 0.4 MG CAP PO SCH (11:09)
--- NOTE | 2022-09-07 12:45 | Hospitalist Progress Note ---
Date of Service September 07, 2022 Assessment & Plan (1) Acute respiratory failure with hypoxia: Plan: Most likely secondary to COVID-pneumonia Does not appear fluid overloaded anymore. Was given IV Lasix on 09/03 with good diuretic response I had discontinued the Mcginnis catheter. Continue to treat COVID-pneumonia with Decadron and remdesivir requiring 4 L of oxygen (2) Pneumonia due to COVID-19 virus: Plan: Patient initially was relatively asymptomatic with his COVID However, now he is hypoxic Now on Decadron and remdesivir No evident respiratory distress at this time Still requiring 4 L of oxygen Incentive spirometer Flutter valve COVID isolation precautions (3) Urinary retention: Plan: Currently patient is sleeping Asked the nurse to BladderScan him once he is awake Continue Flomax that was started If bladder scan shows significant urinary retention and he is agitated, will consider putting a Mcginnis catheter in weighing the risks and benefits. (4) Delirium: Plan: Likely hospital-acquired delirium, on baseline dementia, worsened by COVID- pneumonia Was doing better yesterday. Mcginnis catheter was removed but overnight had issues with urinary retention. Patient is now on Flomax Continue Zyprexa (5) ANSHUL (acute kidney injury): Plan: Cr 1.72 up from 1.31. NSS Was given IV fluids initially followed by shortness of breath and cough Chest x-ray showed fluid overload 09/03 IV Lasix given 09/03. Resolved Monitor BMP closely. (6) Weakness: Plan: Secondary to COVID PT/OT Patient will likely need long-term placement spoke to daughter (7) Dementia with aggressive behavior: Plan: Was agitated again overnight most likely due to urinary retention Continue Zyprexa at 5 mg Continue one-to-one sitter in the room for now Spoke to daughter in the past few days during this hospital stay about overall condition: Baseline dementia, advanced age, now with COVID, agitation getting in the way of his medical treatment. Daughter gave me the decision to change his CODE STATUS to a DNR/DNI. Palliative care on board (8) Metabolic encephalopathy: Plan: Suspect secondary to COVID CT head negative for intracranial pathology Hospital-acquired delirium is probably playing a role as well. Increase Zyprexa to 5 mg nightly to help establish healthy sleep-wake cycle Plan VTE Prophylaxis - Lovenox 40mg SQ daily Diet - regular Code: DNR/DNI Disposition: Likely will need long-term placement Admission and Anticipated Discharge Date Admission Date: September 02, 2022 Subjective Patient had a rough night with agitation. He had issues with urinary retention. Finally fell asleep a little bit ago. Sitter in the room. Review of Systems Review of Systems: Unobtainable due to cognitive status Physical Exam Physical Exam: General: Sleeping. Heart: S1, S2/regular rate and rhythm, no murmur rubs or gallops Lungs: Clear to auscultation bilaterally. Normal effort Abdomen: Soft/nontender/nondistended. No hepatosplenomegaly Extremities: No clubbing/cyanosis. No edema Behavior: Unable to assess as he is sleeping. Chose not to wake him up. Results & Data Results & Data Vital Signs (Past 12 Hours) Vital Signs Temp Pulse Resp BP Pulse Ox O2 Del Method O2 Flow Rate 09/07/22 11:13 36.5 C 43 L 18 126/84 96 Nasal Cannula 4 PG Care Time/CCT Total # of Minutes Spent Total Time Spent with Patient: Total time spent is greater than 50% in coordination of care (as documented) at patient's floor/unit and/or counseling patient: Coding Level of Care Code 97561 SUB INP/OBS CARE 2/35MIN Diagnoses Acute respiratory failure with hypoxia J96.01 Pneumonia due to COVID-19 virus U07.1; J12.82 Urinary retention R33.9 Delirium R41.0 ANSHUL (acute kidney injury) N17.9 Weakness R53.1 Dementia with aggressive behavior F03.91 Metabolic encephalopathy G93.41
[2022-09-07 14:25] LABS: Hematocrit (blood only) 48.3 % (42.0-52.0); Hemoglobin 16.1 g/dl (14.0-18.0); Mean Corpuscular Hemoglobin 30.8 pg (25.0-34.0); Mean Corpuscular Hgb Conc 33.3 g/dL (32.0-36.0); Mean Corpuscular Volume 92.4 fL (80.0-100.0); Platelet Count 161 K/uL (130-400); RDW Coefficient of Variation 12.8 % (11.5-14.5); RDW Standard Deviation 43.6 fL (36.4-46.3); Red Blood Count 5.23 M/uL (4.70-6.10); White Blood Count 13.17 K/ul (4.8-10.8)
[2022-09-07 14:51] LABS: BUN Creatinine Ratio 32.2 (10-20); Calcium 8.7 mg/dl (8.5-10.1); Creatinine Clr Calc Pharmacy 56.2 ml/min; Est GFR (African American) 63.3 ml/min; Est GFR (Non-African American) 54.6 ml/min; Potassium 4.6 mmol/L (3.5-5.1)
--- NOTE | 2022-09-07 17:23 | Palliative Care Progress Note ---
Date of Service September 07, 2022 Assessment & Plan (1) Palliative care by specialist: Plan: Met with pt Ewelina orr by phone due to pt covid isolation. Provided overview of Palliative Medicine, a subspecialty that provides specialized medical care for people living with a serious illness by offering a focus on quality of life. Palliative Medicine is often conflated with hospice: I advised patient/family that Palliative and hospice can be partners but we are not the same. It is important to understand the difference so that we may be informed, and not afraid. Palliative Medicine works to improve QOL through reduction of symptom burden/more control over their illness, for both the patient and family. Palliative medicine clinicians are board certified, specially-trained and another member of the patient's medical care team. We often provide an extra layer of support because our care is based on the needs of the patient, not the prognosis; as such, it's appropriate at any age/advancing stage of a serious illness and can be provided along with curative treatment. Palliative Medicine clinicians are also trained in advanced communication methodologies, to facilitate complex discussions about advanced illness planning, which are needed to help assure that the treatment choices match the patient's goals, aka delivering Goal Concordant care. Finally, we discussed that hospice is a visiting nurse service that focuses on care delivered at the very end of life for patients with terminal illness, with life expectancy less than 6 month. (2) Discussion about advance care planning held with family member: Plan: Spoke with dtr/HCP Ewelina: 45min discussion about patient's progressive dementia, behav changes and resp failure with PS decline. He has been steadily declining at home for last six months. His performance status was 3-4 with him spending over 80% of day in resting position. He sundowns terribly and wanders around their house but never leaves the house Her mom wont be able to manage him physically if he cannot be ambulatory. She is ok with us trying to improve agitation and understands it may come with sedation side effect. She does not want to consider depot monthly IM haldol for now. I provided the following dementia and JOSE education: Dementia facts Aggressive medical treatment for residents with advanced dementia is often inappropriate for medical reasons, has a low rate of success, and can have negative outcomes that hasten functional decline and . ([employer] Ethics Committee and Clinical Practice and Models of Care Committee. J Am Geriatr Soc. 2014 Aug;62(8):1590-3 and Jose SL, Albaro JM, Muniz SC, Mor V. A national study of the location of for older persons with dementia. J Am Geriatr Soc 2005; 53(2):299-305.) Tube feeding in residents with advanced dementia does not increase survival. It does not prevent aspiration pneumonia, malnutrition or pressure ulcers. It does not reduce the risk of infections or improve functional status or comfort of the patient. (from: Milad PETER, Genny T Percutaneous endoscopic gastrostomy does not prolong survival in patients with dementia. Arch Assistant Art Director Med 2003; 163(11):8698-8219 AND Tanja DE, Rogelio SANDRA, Memo J, Baljinder S, Aramis RS. High short-term mortality in hospitalized patients with advanced dementia - Lack of benefit of tube feeding. Arch Assistant Art Director Med 2001; 161(4):594- 599.) Simple strategies involving hands-on care by well-trained staff such as massage, oral hygiene, changes in diet, and hand-feeding -- can prevent infection and manage feeding problems without resort to tube-feeding. Tube feeding does not prevent aspiration pneumonia and might actually increase its incidence, and does not prevent the consequences of malnutrition Hand feeding can be provided until the beginning of the dying process when all physiological processes shut down, note that cognitively intact cancer patients indicate that dying residents do not feel hunger and thirst. Voluntary refusal of food and liquids is often initiated by hospice patients and does not result in discomfort I recommend hospice at home or SNF: Hospice is a valuable service for persons with advanced dementia, particularly in management of pain, continuous involvement of the primary physician, and avoidance of hospitalization. Social support provided to caregivers is also important given their high levels of depressive symptoms and anxiety. The goal of care for residents with advanced dementia is primarily maintenance of function and patient should not be transferred to an acute care setting because hospitalization results in decline of functional abilities that do not recover after discharge Dementia meds are no longer helping: Based on 45 trials (n=22,431) and three observational studies (n=190,076) that evaluated acetylcholinesterase inhibitors (AChEIs) (i.e., donepezil, galantamine, rivastigmine) and memantine, these medications may improve measures of global cognitive function in the short term, but the magnitude of change is small. (Zeus BLANCO, Cayla RAMESH, Augustine RC, et al. Screening for Cognitive Impairment in Older Adults: An Evidence Update for the [place]. Preventive Services Task Force. Bambi VELASQUEZ): Agency for Healthcare Research and Quality ([place]); July 2019.) Would note that artificial nutrition and hydration (JOSE) were originally developed to provide short-term support for patients who were acutely ill. For patients nearing/transitioning to EOL, JOSE is unlikely to prolong life in addition to which researchers have found that JOSE often leads to complications in patients nearing the end of life. Patients with advanced, life-limiting illness often lose the ability to eat and drink and/or interest in food and fluids. Like other medical interventions, it should be evaluated by weighing its benefits and burdens in light of the patient's clinical circumstances and goals of care. JOSE may offer benefits when administered in the setting of acute, reversible illness, or as a component of chronic disease management, when the patient can appreciate the benefits of the treatment and significant burdens are not disproportionate. Near the end of life, some widely assumed benefits of JOSE, such as alleviation of thirst, may be achieved by less invasive measures including good mouth care or providing ice chips. (Elena JACKSON, Sadaf SETHK, Navneet M. after PEG: Results of the National Confi dential Enquiry into Patient Outcome and . Gastrointest Endosc. 2008;68:223-227andJamir E, Jade D, Moris S, et al. Parenteral hydration in patients with advanced cancer: A multicenter, double-blind, placebo-controlled randomized trial. J Clin Oncol. 2013;31:111-118.) Ewelina states she will meet with her mom and 5 siblings mary alice. I offered a zoom family meeting for - Ewelina advised she will call me if they want it. She added that a few siblings are unable to attend an in person meeting due to needing to avoid COVID exposures. (3) Dementia with aggressive behavior: (4) Acute respiratory failure with hypoxia: (5) Pneumonia due to COVID-19 virus: (6) Metabolic encephalopathy: Plan * Suggest increasing Zyprexa to 7.5mg daily, this can go to 20mg ODT if needed. * If he will not consistently take PO meds then we are back to needing to consider IM Depot haldol monthly -dtr Ewelina ascencio aware and verbalized unders tanding: To improve behav disturbances associated with advanced/end stage dementia for patients who are unable to or refuse to take PO meds/cannot cooperate with PO med administration, IM Depot Haldol is a reasonable solution for optimizing patient symptom control/relief of distress and comfort. Start with 20-30 mg IM (the equivalent of 0.5-1mg PO/day) and titrate up weekly from there, adding additional 10 mg IM until we get a sense of a good dose on board, then give that monthly. * Family meeting virtually as noted above in lengthy and complex ACP discussion. * I have updated the primary team. * I have discussed this case with care management. Thank you for allowing us to participate in the ongoing care of this patient. Please don't hesitate to call or page with any additional concerns. Dr. Alanna Cantor DNP Director, Palliative Care Admission and Anticipated Discharge Date Admission Date: September 02, 2022 Subjective Patient remains agitated and combative. Nursing shares that there has been difficulty giving him his medication as he will often refuse. His respiratory status has somewhat improved today. He is not requiring escalated support. He continues to require a one-to-one sitter. Review of Systems Review of Systems: Unobtainable due to cognitive status (Advanced dementia.) Physical Exam Physical Exam: Deferred secondary to patient's agitation and combative behavior. He is agitated, restless, and has advanced dementia. Results & Data Vital Signs (Past 12 Hours) Vital Signs Temp Pulse Resp BP Pulse Ox O2 Del Method O2 Flow Rate 09/07/22 08:20 Nasal Cannula 4 09/07/22 15:22 36.6 C 50 L 18 128/87 96 Nasal Cannula 4 09/07/22 11:13 36.5 C 43 L 18 126/84 96 Nasal Cannula 4 Laboratory Results Data reviewed Diagnostic Findings Data reviewed PG Care Time/CCT Total # of Minutes Spent Total Time Spent: 90 Total Time Spent with Patient: Total time I spent 90 minutes overall addressing this case: 10 in medical data review/discussion with referring provider(s) and/or preparation for the visit 10 in direct interaction with the patient 45 Advance Care Planning/Goals of Care discussions as detailed above in note (must be >16min) 10 in subsequent review and synthesis of assessment and plan 15 in communicating with other providers regarding the patient's case: is greater than 50% in coordination of care (as documented) at patient's floor/unit and/or counseling patient: Advanced Care Planning 42285 Advanced Care Planning 30 Min 82997 Advanced Care Planning Additional 30 Min [place] [address] SUB INP/OBS CARE 3/50MIN Patient Type Established History Comprehensive Exam Problem Focused Medical Decision Making High Complexity Diagnoses Palliative care by specialist Z51.5 Discussion about advance care planning held with family member Z71.0 Dementia with aggressive behavior F03.91 Acute respiratory failure with hypoxia J96.01 Pneumonia due to COVID-19 virus U07.1; J12.82 Metabolic encephalopathy G93.41 Additional Codes Advanced Care Planning - 83904 Advanced Care Planning 30 Min: 96758 Advanced Care Planning 30 Min ([id number]) Advanced Care Planning - 53908 Advanced Care Planning Additional 30 Min: 69971 Advanced Care Planning Additional 30 Min ([id number])
[2022-09-07] MEDS: REMDESIVIR 100 MG in SODIUM CHLORIDE 0.9% 230 ML IV SCH (18:59)
[2022-09-07] MEDS: ENOXAPARIN INJ 40 MG/0.4 ML SYR SQ SCH (20:46)
[2022-09-08] MEDS: LEVOTHYROXINE SODIUM 25 MCG TABLET PO SCH (05:51)
[2022-09-08] MEDS: ASPIRIN 81 MG ECTAB PO SCH (10:50)
[2022-09-08] MEDS: FINASTERIDE 5 MG TAB PO SCH (10:51)
[2022-09-08] MEDS: LATANOPROST 0.005% OP SOLN 2.5 ML BTL OPB SCH (10:51)
[2022-09-08] MEDS: DORZOLAMIDE/TIMOLOL 22.3/6.8MG/ML 10 ML BTL OPB SCH ×2 (10:51→20:53)
[2022-09-08] MEDS: DONEPEZIL HCL 10 MG TAB PO SCH (10:51)
[2022-09-08] MEDS: CHOLECALCIFEROL 1,000 UNITS 25 MCG TAB PO SCH (10:51)
[2022-09-08] MEDS: METOPROLOL TARTRATE 25 MG TAB PO SCH ×2 (10:51→21:13)
[2022-09-08] MEDS: MULTIVITAMIN TAB PO SCH (10:52)
[2022-09-08] MEDS: TAMSULOSIN HCL 0.4 MG CAP PO SCH (10:52)
[2022-09-08] MEDS: dexAMETHasone 6 MG in SYRINGE 0 ML IV SCH (10:52)
[2022-09-08 15:25] LABS: Calcium 8.6 mg/dl (8.5-10.1); Potassium 3.9 mmol/L (3.5-5.1)
[2022-09-08 15:30] LABS: BUN Creatinine Ratio 31.1 (10-20); Creatinine Clr Calc Pharmacy 57.2 ml/min; Est GFR (African American) 64.6 ml/min; Est GFR (Non-African American) 55.8 ml/min
[2022-09-08 15:31] LABS: Hematocrit (blood only) 48.3 % (42.0-52.0); Hemoglobin 16.6 g/dl (14.0-18.0); Mean Corpuscular Hemoglobin 31.1 pg (25.0-34.0); Mean Corpuscular Hgb Conc 34.4 g/dL (32.0-36.0); Mean Corpuscular Volume 90.4 fL (80.0-100.0); Mean Platelet Volume 11.1 fL (9.4-12.4); Platelet Count 153 K/uL (130-400); RDW Coefficient of Variation 12.8 % (11.5-14.5); RDW Standard Deviation 42.1 fL (36.4-46.3); Red Blood Count 5.34 M/uL (4.70-6.10); White Blood Count 13.47 K/ul (4.8-10.8)
--- NOTE | 2022-09-08 15:55 | Hospitalist Progress Note ---
Date of Service September 08, 2022 Assessment & Plan (1) Acute respiratory failure with hypoxia: Plan: Most likely secondary to COVID-pneumonia Does not appear fluid overloaded anymore. Was given IV Lasix on 09/03 with good diuretic response I had discontinued the Mcginnis catheter. Continue to treat COVID-pneumonia with Decadron and remdesivir Off of oxygen (2) Pneumonia due to COVID-19 virus: Plan: Patient initially was relatively asymptomatic with his COVID However, now he is hypoxic Now on Decadron and remdesivir No evident respiratory distress at this time Off of oxygen now Incentive spirometer Flutter valve COVID isolation precautions (3) Urinary retention: Plan: Currently patient is sleeping Continue Flomax that was started No more issues with retention. He is incontinent. (4) Delirium: Plan: Likely hospital-acquired delirium, on baseline dementia, worsened by COVID- pneumonia Was given 7.5 mg of Zyprexa overnight, slept well overnight He is much improved this morning with improved cooperativeness. Not agitated today. (5) ANSHUL (acute kidney injury): Plan: Cr 1.72 up from 1.31. NSS Was given IV fluids initially followed by shortness of breath and cough Chest x-ray showed fluid overload 09/03 IV Lasix given 09/03. Resolved Monitor BMP closely. (6) Weakness: Plan: Secondary to COVID PT/OT Patient will likely need assisted placement spoke to daughter (7) Dementia with aggressive behavior: Plan: Responded well to higher dose of Zyprexa at 7.5 mg Continue one-to-one sitter in the room for now Spoke to daughter in the past few days during this hospital stay about overall condition: Baseline dementia, advanced age, now with COVID, agitation getting in the way of his medical treatment. Daughter gave me the decision to change his CODE STATUS to a DNR/DNI. Palliative care on board (8) Metabolic encephalopathy: Plan: Suspect secondary to COVID CT head negative for intracranial pathology Hospital-acquired delirium is probably playing a role as well. Increased Zyprexa to 7.5 mg nightly to help establish healthy sleep-wake cycle Plan VTE Prophylaxis - Lovenox 40mg SQ daily Diet - regular Code: DNR/DNI Disposition: Likely will need assisted placement Admission and Anticipated Discharge Date Admission Date: September 02, 2022 Subjective Patient slept through the night. Was still sleeping this morning during my encounter. Per the sitter, he was very cooperative with patchy changes. He has been incontinent of urine. Review of Systems Review of Systems: All systems reviewed & are unremarkable except as noted in Subjective Physical Exam Physical Exam: General: Sleeping. Heart: S1, S2/regular rate and rhythm, no murmur rubs or gallops Lungs: Clear to auscultation bilaterally. Normal effort Abdomen: Soft/nontender/nondistended. No hepatosplenomegaly Extremities: No clubbing/cyanosis. No edema Behavior: Unable to assess as he is sleeping. Chose not to wake him up. Results & Data Results & Data Vital Signs (Past 12 Hours) Vital Signs Temp Pulse Resp BP Pulse Ox O2 Del Method 09/08/22 10:16 36.2 C L 44 L 16 109/84 96 Room Air Laboratory Results Abnormal lab results 09/08/22 09/08/22 Range/Units 14:33 14:33 WBC 13.47 H (4.8-10.8) K/ul Sodium 147 H (136-145) mmol/L Chloride 114 H (98-107) mmol/L BUN 37 H (6-23) mg/dl BUN/Creatinine Ratio 31.1 H (10-20) PG Care Time/CCT Total # of Minutes Spent Total Time Spent with Patient: Total time spent is greater than 50% in coordination of care (as documented) at patient's floor/unit and/or counseling patient: Coding Level of Care Code 11548 SUB INP/OBS CARE 2/35MIN Diagnoses Acute respiratory failure with hypoxia J96.01 Pneumonia due to COVID-19 virus U07.1; J12.82 Urinary retention R33.9 Delirium R41.0 ANSHUL (acute kidney injury) N17.9 Weakness R53.1 Dementia with aggressive behavior F03.91 Metabolic encephalopathy G93.41
[2022-09-08] MEDS: ENOXAPARIN INJ 40 MG/0.4 ML SYR SQ SCH (20:53)
[2022-09-09] MEDS: LEVOTHYROXINE SODIUM 25 MCG TABLET PO SCH (05:50)
[2022-09-09 08:55] LABS: Hematocrit (blood only) 50.2 % (42.0-52.0); Hemoglobin 17.2 g/dl (14.0-18.0); Mean Corpuscular Hemoglobin 31.1 pg (25.0-34.0); Mean Corpuscular Hgb Conc 34.3 g/dL (32.0-36.0); Mean Corpuscular Volume 90.8 fL (80.0-100.0); Mean Platelet Volume 11.5 fL (9.4-12.4); Platelet Count 151 K/uL (130-400); RDW Coefficient of Variation 12.7 % (11.5-14.5); RDW Standard Deviation 42.4 fL (36.4-46.3); Red Blood Count 5.53 M/uL (4.70-6.10); White Blood Count 12.26 K/ul (4.8-10.8)
[2022-09-09 09:25] LABS: Anion Gap 7 (3-11); BUN Creatinine Ratio 27.4 (10-20); Blood Urea Nitrogen 32 mg/dl (6-23); Calcium 8.6 mg/dl (8.6-10.3); Carbon Dioxide 25 mmol/L (21-32); Chloride 115 mmol/L (98-107); Creatinine Clr Calc Pharmacy 58.2 ml/min; Est GFR (Non-African American) 56.9 ml/min; Glucose 95 mg/dl (70-99(Fasting)); Sodium 147 mmol/L (136-145)
[2022-09-09] MEDS: CHOLECALCIFEROL 1,000 UNITS 25 MCG TAB PO SCH (10:30)
[2022-09-09] MEDS: ASPIRIN 81 MG ECTAB PO SCH (10:30)
[2022-09-09] MEDS: FINASTERIDE 5 MG TAB PO SCH (10:31)
[2022-09-09] MEDS: DORZOLAMIDE/TIMOLOL 22.3/6.8MG/ML 10 ML BTL OPB SCH ×2 (10:31→20:14)
[2022-09-09] MEDS: MULTIVITAMIN TAB PO SCH (10:31)
[2022-09-09] MEDS: TAMSULOSIN HCL 0.4 MG CAP PO SCH (10:31)
[2022-09-09] MEDS: DONEPEZIL HCL 10 MG TAB PO SCH (10:31)
[2022-09-09] MEDS: METOPROLOL TARTRATE 25 MG TAB PO SCH ×2 (10:31→20:14)
[2022-09-09] MEDS: dexAMETHasone 6 MG in SYRINGE 0 ML IV SCH (10:31)
[2022-09-09] MEDS: LATANOPROST 0.005% OP SOLN 2.5 ML BTL OPB SCH (10:31)
--- NOTE | 2022-09-09 12:42 | Hospitalist Progress Note ---
Date of Service September 09, 2022 Assessment & Plan (1) Pneumonia due to COVID-19 virus: Plan: Patient initially was relatively asymptomatic with his COVID However, now he is hypoxic Off of remdesivir Discontinue Decadron in case the steroid is causing psychosis No evident respiratory distress at this time Off of oxygen now Incentive spirometer Flutter valve COVID isolation precautions (2) Delirium: Plan: Multifactorial, likely related to COVID, steroids, hospital stay on top of baseline dementia Discontinue Decadron Per palliative care recommendation, will switch Zyprexa from p.o. to IM as he h as had unreliable p.o. intake and has ongoing issues with agitation and combativeness (3) ANSHUL (acute kidney injury): Plan: Cr 1.72 up from 1.31. NSS Was given IV fluids initially followed by shortness of breath and cough Chest x-ray showed fluid overload 09/03 IV Lasix given 09/03. Resolved (4) Urinary retention: Plan: Currently patient is sleeping Continue Flomax that was started No more issues with retention. He is incontinent. (5) Acute respiratory failure with hypoxia: Plan: Resolved Most likely secondary to COVID-pneumonia Does not appear fluid overloaded anymore. Was given IV Lasix on 09/03 with good diuretic response I had discontinued the Mcginnis catheter. Discontinue Decadron Off of oxygen (6) Weakness: Plan: Secondary to COVID PT/OT Patient will likely need residential placement spoke to daughter (7) Dementia with aggressive behavior: Plan: Continue one-to-one sitter in the room for now Per palliative care recommendation, switch from p.o. to IM Zyprexa Patient will need to be without a sitter to be able to be discharged to SNF Spoke to daughter in the past few days during this hospital stay about overall condition: Baseline dementia, advanced age, now with COVID, agitation getting in the way of his medical treatment. Daughter gave me the decision to change his CODE STATUS to a DNR/DNI. Palliative care on board (8) Metabolic encephalopathy: Plan: Suspect secondary to COVID CT head negative for intracranial pathology Hospital-acquired delirium is probably playing a role as well. Plan Patient presented with COVID. Initially was minimally symptomatic. However he was very delirious. During the course of the hospital stay, he became hypoxic and short of breath related to COVID. He was started on remdesivir and Decadron. From a COVID standpoint, he is now doing very well. Off of oxygen. However, from a delirium standpoint he is not doing well at all. He is still agitated, combative whenever he is awake. Palliative care is on board. We started him on Zyprexa p.o. however his intake is unreliable and thus we switched him to Zyprexa IM today 09/09. Per palliative care, the family is und ecided about disposition. Some family members want him home, some others are not decided. At this point, he is needing a one-to-one sitter which is making residential placement difficult. His agitation will need to be controlled enough that he is not needing a sitter to be able to be placed in a SNF. I discontinued Decadron today in case steroid-induced psychosis is playing a role in the delirium. VTE Prophylaxis - Lovenox 40mg SQ daily Diet - regular Code: DNR/DNI Disposition: Likely will need residential placement but will need to be without a sitter first Admission and Anticipated Discharge Date Admission Date: September 02, 2022 Subjective Patient was agitated every time he wakes up. Per sitter, he has been combative when he is not sleeping. He is currently sleeping now. Spoke to daughter on the phone. Spoke to palliative team. Review of Systems Review of Systems: Unobtainable due to cognitive status Physical Exam Physical Exam: General: Sleeping. Heart: S1, S2/regular rate and rhythm, no murmur rubs or gallops Lungs: Clear to auscultation bilaterally. Normal effort Abdomen: Soft/nontender/nondistended. No hepatosplenomegaly Extremities: No clubbing/cyanosis. No edema Behavior: Unable to assess as he is sleeping. Chose not to wake him up. Results & Data Results & Data Vital Signs (Past 12 Hours) Vital Signs O2 Del Method 09/09/22 09:05 Room Air PG Care Time/CCT Total # of Minutes Spent Total Time Spent with Patient: Total time spent is greater than 50% in coordination of care (as documented) at patient's floor/unit and/or counseling patient: Coding Level of Care Code 61806 SUB INP/OBS CARE 2/35MIN Diagnoses Pneumonia due to COVID-19 virus U07.1; J12.82 Delirium R41.0 ANSHUL (acute kidney injury) N17.9 Urinary retention R33.9 Acute respiratory failure with hypoxia J96.01 Weakness R53.1 Dementia with aggressive behavior F03.91 Metabolic encephalopathy G93.41
--- NOTE | 2022-09-09 14:50 | Palliative Care Progress Note ---
Date of Service September 09, 2022 Assessment & Plan (1) Palliative care by specialist: (2) Discussion about advance care planning held with family member: Plan: 35 min phone call with Ewelina/HCP and daughter of Anam Castañeda. She, pt and the remaining 5 siblings met last night and she says that for now family want to stay the course, see if he can get to rehab and see how much better he can get. wants him home no matter how he does in rehab OR if rehab isn't going to be an option she still wants him home. Ewelina and her 5 siblings met and she says that 3 of them didn't offer to help in any way so she is feeling frustrated about how much help they will need/what Mom can realistically manage at home mostly on her own/concerns for caregiver burnout, and they are unable to afford private caregivers etc. I reviewed hospice with her again. She told me they had it for both her grandmother and her mother in law/both good experiences, but no final decision. We reviewed his continued agitation. May want to try zyprexa injection for a few days and once calmer, then move to oral. (3) Dementia with aggressive behavior: (4) Acute respiratory failure with hypoxia: (5) Pneumonia due to COVID-19 virus: (6) Metabolic encephalopathy: Plan Updated Dr Rodriguez, [facility] trial of IM zyprexa injection for a few days and once calmer, then move to oral. family meeting as noted above. I will follow more peripherally. Thank you for allowing us to participate in the ongoing care of this patient. Please don't hesitate to call or page with any additional concerns. Dr. Alanna Cantor DNP Director, Palliative Care Admission and Anticipated Discharge Date Admission Date: September 02, 2022 Subjective telephonic family meeting with dtr pt without much change still agitated and combative consistently inconsistent with taking meds Review of Systems Review of Systems: Unobtainable due to cognitive status Physical Exam Physical Exam: deferred, pt is combative/kicking etc at staff and + covid isolation Results & Data Vital Signs (Past 12 Hours) Vital Signs O2 Del Method 09/09/22 09:05 Room Air PG Care Time/CCT Total # of Minutes Spent Total Time Spent: 75 Total Time Spent with Patient: Total time spent is greater than 50% in coordination of care (as documented) at patient's floor/unit and/or counseling patient: Coding [place] [address] SUB INP/OBS CARE 350MIN Patient Type Established History Comprehensive Exam Expanded Problem Focused Medical Decision Making High Complexity Diagnoses Palliative care by specialist Z51.5 Discussion about advance care planning held with family member Z71.0 Dementia with aggressive behavior F03.91 Acute respiratory failure with hypoxia J96.01 Pneumonia due to COVID-19 virus U07.1; J12.82 Metabolic encephalopathy G93.41
[2022-09-09] MEDS: ENOXAPARIN INJ 40 MG/0.4 ML SYR SQ SCH (20:13)
[2022-09-10] MEDS: LEVOTHYROXINE SODIUM 25 MCG TABLET PO SCH (05:32)
[2022-09-10 08:40] LABS: Est GFR (African American) 57.5 ml/min; Est GFR (Non-African American) 49.6 ml/min
[2022-09-10] MEDS ORDERED: dexAMETHasone 1 MG TAB PO SCH (09:00)
[2022-09-10] MEDS: TAMSULOSIN HCL 0.4 MG CAP PO SCH (10:50)
[2022-09-10] MEDS: MULTIVITAMIN TAB PO SCH (10:50)
[2022-09-10] MEDS: DONEPEZIL HCL 10 MG TAB PO SCH (10:50)
[2022-09-10] MEDS: ASPIRIN 81 MG ECTAB PO SCH (10:50)
[2022-09-10] MEDS: CHOLECALCIFEROL 1,000 UNITS 25 MCG TAB PO SCH (10:50)
[2022-09-10] MEDS: FINASTERIDE 5 MG TAB PO SCH (10:50)
[2022-09-10] MEDS: LATANOPROST 0.005% OP SOLN 2.5 ML BTL OPB SCH (10:50)
[2022-09-10] MEDS: DORZOLAMIDE/TIMOLOL 22.3/6.8MG/ML 10 ML BTL OPB SCH ×2 (10:50→20:51)
[2022-09-10] MEDS: METOPROLOL TARTRATE 25 MG TAB PO SCH ×2 (10:51→20:52)
[2022-09-10] MEDS: OLANZapine 10 MG/2.1 ML SDV IM SCH (10:51)
[2022-09-10] MEDS: ACETAMINOPHEN 325 MG TAB PO PRN (10:53)
--- NOTE | 2022-09-10 17:44 | Hospitalist Progress Note ---
Date of Service September 10, 2022 Assessment & Plan (1) Pneumonia due to COVID-19 virus: Plan: Patient initially was relatively asymptomatic with his COVID However, now he is hypoxic Off of remdesivir Discontinue Decadron in case the steroid is causing psychosis No evident respiratory distress at this time Off of oxygen now Incentive spirometer Flutter valve COVID isolation precautions (2) Delirium: Plan: Multifactorial, likely related to COVID, steroids, hospital stay on top of baseline dementia Discontinue Decadron Per palliative care recommendation, will switch Zyprexa from p.o. to IM as he h as had unreliable p.o. intake and has ongoing issues with agitation and combativeness Patient appears to be less agitated on 09/10, will monitor (3) ANSHUL (acute kidney injury): Plan: Cr 1.72 up from 1.31. NSS Was given IV fluids initially followed by shortness of breath and cough Chest x-ray showed fluid overload 09/03 IV Lasix given 09/03. Resolved (4) Urinary retention: Plan: Currently patient is sleeping Continue Flomax that was started No more issues with retention. He is incontinent. (5) Acute respiratory failure with hypoxia: Plan: Resolved Most likely secondary to COVID-pneumonia Does not appear fluid overloaded anymore. Was given IV Lasix on 09/03 with good diuretic response I had discontinued the Mcginnis catheter. Discontinue Decadron Off of oxygen (6) Weakness: Plan: Secondary to COVID PT/OT Patient will likely need [facility] placement (7) Dementia with aggressive behavior: Plan: Continue one-to-one sitter in the room for now Per palliative care recommendation, switch from p.o. to IM Zyprexa Patient will need to be without a sitter to be able to be discharged to SNF Spoke to daughter in the past few days during this hospital stay about overall condition: Baseline dementia, advanced age, now with COVID, agitation getting in the way of his medical treatment. Daughter gave me the decision to change his CODE STATUS to a DNR/DNI. Palliative care on board (8) Metabolic encephalopathy: Plan: Suspect secondary to COVID CT head negative for intracranial pathology Hospital-acquired delirium is probably playing a role as well. Plan Patient presented with COVID. Initially was minimally symptomatic. However he was very delirious. During the course of the hospital stay, he became hypoxic and short of breath related to COVID. He was started on remdesivir and Decadron. From a COVID standpoint, he is now doing very well. Off of oxygen. However, from a delirium standpoint he is not doing well at all. He is still agitated, combative whenever he is awake. Palliative care is on board. We started him on Zyprexa p.o. however his intake is unreliable and thus we switched him to Zyprexa IM 09/09. Per palliative care, the family is undecided about disposition. Some family members want him home, some others are not decided. At this point, he is needing a one-to-one sitter which is making [facility] placement difficult. His agitation will need to be controlled enough that he is not needing a sitter to be able to be placed in a SNF. Decadron will remain on hold. VTE Prophylaxis - Lovenox 40mg SQ daily Diet - regular Code: DNR/DNI Admission and Anticipated Discharge Date Admission Date: September 02, 2022 Subjective 86 yo male appears calm but not answering questions. He is just laying in bed looking up towards ceiling. Review of Systems Review of Systems: All systems reviewed & are unremarkable except as noted in HPI & below Physical Exam Physical Exam: General: Patient lying in bed Heart: S1, S2/regular rate and rhythm, no murmur rubs or gallops Lungs: Clear to auscultation bilaterally. Normal effort Abdomen: Soft/nontender/nondistended. No hepatosplenomegaly Extremities: No clubbing/cyanosis. No edema Behavior: Calm Results & Data Results & Data Vital Signs (Past 12 Hours) Vital Signs Temp Pulse Resp BP Pulse Ox O2 Del Method 09/10/22 15:19 37 C 63 16 131/68 93 Room Air 09/10/22 07:27 37.0 C 64 18 120/72 97 Room Air PG Care Time/CCT Total # of Minutes Spent Total Time Spent with Patient: Total time spent is greater than 50% in coordination of care (as documented) at patient's floor/unit and/or counseling patient: Coding Level of Care Code 97398 SUB INP/OBS CARE 2/35MIN Diagnoses Pneumonia due to COVID-19 virus U07.1; J12.82 Delirium R41.0 ANSHUL (acute kidney injury) N17.9 Urinary retention R33.9 Acute respiratory failure with hypoxia J96.01 Weakness R53.1 Dementia with aggressive behavior F03.91 Metabolic encephalopathy G93.41
[2022-09-10] MEDS: ENOXAPARIN INJ 40 MG/0.4 ML SYR SQ SCH (20:51)
[2022-09-11] MEDS: LEVOTHYROXINE SODIUM 25 MCG TABLET PO SCH (05:52)
[2022-09-11] MEDS: DONEPEZIL HCL 10 MG TAB PO SCH (09:01)
[2022-09-11] MEDS: OLANZapine 10 MG/2.1 ML SDV IM SCH (09:02)
[2022-09-11] MEDS: TAMSULOSIN HCL 0.4 MG CAP PO SCH (09:05)
[2022-09-11] MEDS: ASPIRIN 81 MG ECTAB PO SCH (09:05)
[2022-09-11] MEDS: LATANOPROST 0.005% OP SOLN 2.5 ML BTL OPB SCH (09:05)
[2022-09-11] MEDS: CHOLECALCIFEROL 1,000 UNITS 25 MCG TAB PO SCH (09:05)
[2022-09-11] MEDS: DORZOLAMIDE/TIMOLOL 22.3/6.8MG/ML 10 ML BTL OPB SCH ×2 (09:05→19:30)
[2022-09-11] MEDS: METOPROLOL TARTRATE 25 MG TAB PO SCH ×2 (09:05→19:29)
[2022-09-11] MEDS: MULTIVITAMIN TAB PO SCH (09:05)
[2022-09-11] MEDS: FINASTERIDE 5 MG TAB PO SCH (09:06)
[2022-09-11] MEDS: ENOXAPARIN INJ 40 MG/0.4 ML SYR SQ SCH (19:31)
--- NOTE | 2022-09-11 21:50 | Hospitalist Progress Note ---
Date of Service September 11, 2022 Assessment & Plan (1) Pneumonia due to COVID-19 virus: Plan: Patient initially was relatively asymptomatic with his COVID However, now he is hypoxic Off of remdesivir Discontinue Decadron in case the steroid is causing psychosis No evident respiratory distress at this time Off of oxygen now Incentive spirometer Flutter valve COVID isolation precautions (2) Delirium: Plan: Multifactorial, likely related to COVID, steroids, hospital stay on top of baseline dementia Discontinue Decadron Per palliative care recommendation, will switch Zyprexa from p.o. to IM as he h as had unreliable p.o. intake and has ongoing issues with agitation and combativeness Patient appears to be less agitated on 09/11, will monitor (3) ANSHUL (acute kidney injury): Plan: Cr 1.72 up from 1.31. NSS Was given IV fluids initially followed by shortness of breath and cough Chest x-ray showed fluid overload 09/03 IV Lasix given 09/03. Resolved (4) Urinary retention: Plan: Currently patient is sleeping Continue Flomax that was started No more issues with retention. He is incontinent. (5) Acute respiratory failure with hypoxia: Plan: Resolved Most likely secondary to COVID-pneumonia Does not appear fluid overloaded anymore. Was given IV Lasix on 09/03 with good diuretic response I had discontinued the Mcginnis catheter. Discontinue Decadron Off of oxygen (6) Weakness: Plan: Secondary to COVID PT/OT Patient will likely need assisted placement (7) Dementia with aggressive behavior: Plan: Continue one-to-one sitter in the room for now Per palliative care recommendation, switch from p.o. to IM Zyprexa Patient will need to be without a sitter to be able to be discharged to SNF Spoke to daughter in the past few days during this hospital stay about overall condition: Baseline dementia, advanced age, now with COVID, agitation getting in the way of his medical treatment. Daughter gave me the decision to change his CODE STATUS to a DNR/DNI. Palliative care on board (8) Metabolic encephalopathy: Plan: Suspect secondary to COVID CT head negative for intracranial pathology Hospital-acquired delirium is probably playing a role as well. Plan Patient presented with COVID. Initially was minimally symptomatic. However he was very delirious. During the course of the hospital stay, he became hypoxic and short of breath related to COVID. He was started on remdesivir and Decadron. From a COVID standpoint, he is now doing very well. Off of oxygen. Patient is doing beter with his delirium, however he continues to require a one to one sitter. VTE Prophylaxis - Lovenox 40mg SQ daily Diet - regular Code: DNR/DNI Admission and Anticipated Discharge Date Admission Date: September 02, 2022 Subjective Patient is more awake, he does not verbalize any complaints. Review of Systems Review of Systems: All systems reviewed & are unremarkable except as noted in HPI & below Physical Exam Physical Exam: 86 yo male appears calm. He interacts but does not provide much history. Results & Data Results & Data Vital Signs (Past 12 Hours) Vital Signs Temp Pulse Pulse Resp BP BP Pulse Ox 09/11/22 19:24 36.7 C 78 18 123/72 95 09/11/22 18:05 36.8 C 88 16 122/79 95 09/11/22 10:18 36.6 C 84 18 132/86 O2 Del Method 09/11/22 19:24 Room Air 09/11/22 18:05 Room Air 09/11/22 10:18 PG Care Time/CCT Total # of Minutes Spent Total Time Spent with Patient: Total time spent is greater than 50% in coordination of care (as documented) at patient's floor/unit and/or counseling patient: Coding Level of Care Code 05027 SUB INP/OBS CARE 2/35MIN Diagnoses Pneumonia due to COVID-19 virus U07.1; J12.82 Delirium R41.0 ANSHUL (acute kidney injury) N17.9 Urinary retention R33.9 Acute respiratory failure with hypoxia J96.01 Weakness R53.1 Dementia with aggressive behavior F03.91 Metabolic encephalopathy G93.41
[2022-09-12] MEDS: LEVOTHYROXINE SODIUM 25 MCG TABLET PO SCH (06:25)
[2022-09-12] MEDS: OLANZapine 10 MG/2.1 ML SDV IM SCH (09:29)
[2022-09-12] MEDS: MULTIVITAMIN TAB PO SCH (09:31)
[2022-09-12] MEDS: ASPIRIN 81 MG ECTAB PO SCH (09:31)
[2022-09-12] MEDS: LATANOPROST 0.005% OP SOLN 2.5 ML BTL OPB SCH (09:31)
[2022-09-12] MEDS: DORZOLAMIDE/TIMOLOL 22.3/6.8MG/ML 10 ML BTL OPB SCH ×2 (09:31→23:32)
[2022-09-12] MEDS: DONEPEZIL HCL 10 MG TAB PO SCH (09:31)
[2022-09-12] MEDS: CHOLECALCIFEROL 1,000 UNITS 25 MCG TAB PO SCH (09:31)
[2022-09-12] MEDS: METOPROLOL TARTRATE 25 MG TAB PO SCH ×2 (09:31→23:32)
[2022-09-12] MEDS: TAMSULOSIN HCL 0.4 MG CAP PO SCH (09:31)
[2022-09-12] MEDS: FINASTERIDE 5 MG TAB PO SCH (09:32)
--- NOTE | 2022-09-12 22:52 | Hospitalist Progress Note ---
Date of Service September 12, 2022 Assessment & Plan (1) Pneumonia due to COVID-19 virus: Plan: Patient initially was relatively asymptomatic with his COVID However, now he is hypoxic Off of remdesivir Discontinue Decadron in case the steroid is causing psychosis No evident respiratory distress at this time Off of oxygen now Incentive spirometer Flutter valve COVID isolation precautions removed. (2) Delirium: Plan: Multifactorial, likely related to COVID, steroids, hospital stay on top of baseline dementia Discontinue Decadron Per palliative care recommendation, will switch Zyprexa from p.o. to IM as he has had unreliable p.o. intake and has ongoing issues with agitation and combativeness Patient appears to be less agitated on 09/12, will monitor (3) ANSHUL (acute kidney injury): Plan: Cr 1.72 up from 1.31. NSS Was given IV fluids initially followed by shortness of breath and cough Chest x-ray showed fluid overload 09/03 IV Lasix given 09/03. Resolved (4) Urinary retention: Plan: Currently patient is sleeping Continue Flomax that was started No more issues with retention. He is incontinent. (5) Acute respiratory failure with hypoxia: Plan: Resolved Most likely secondary to COVID-pneumonia Does not appear fluid overloaded anymore. Was given IV Lasix on 09/03 with good diuretic response I had discontinued the Mcginnis catheter. Discontinue Decadron Off of oxygen (6) Weakness: Plan: Secondary to COVID PT/OT Patient will likely need halfway placement (7) Dementia with aggressive behavior: Plan: Continue one-to-one sitter in the room for now Per palliative care recommendation, switch from p.o. to IM Zyprexa Patient will need to be without a sitter to be able to be discharged to SNF Spoke to daughter in the past few days during this hospital stay about overall condition: Baseline dementia, advanced age, now with COVID, agitation getting in the way of his medical treatment. Daughter gave me the decision to change his CODE STATUS to a DNR/DNI. Palliative care on board (8) Metabolic encephalopathy: Plan: Suspect secondary to COVID CT head negative for intracranial pathology Hospital-acquired delirium is probably playing a role as well. Plan Patient presented with COVID. Initially was minimally symptomatic. However he was very delirious. During the course of the hospital stay, he became hypoxic and short of breath related to COVID. He was started on remdesivir and Decadron. From a COVID standpoint, he is now doing very well. Off of oxygen. Patient is doing beter with his delirium, however he continues to require a one to one sitter. VTE Prophylaxis - Lovenox 40mg SQ daily Diet - regular Code: DNR/DNI Admission and Anticipated Discharge Date Admission Date: September 02, 2022 Subjective Patient is calm. Requires one to one Review of Systems Review of Systems: Unobtainable due to cognitive status Physical Exam Physical Exam: 86 yo male appears calm. He interacts but does not provide much history. Results & Data Results & Data Vital Signs (Past 12 Hours) Vital Signs O2 Del Method 09/12/22 22:14 Room Air 09/12/22 11:40 Room Air PG Care Time/CCT Total # of Minutes Spent Total Time Spent with Patient: Total time spent is greater than 50% in coordination of care (as documented) at patient's floor/unit and/or counseling patient: Coding Level of Care Code 44139 SUB INP/OBS CARE 2/35MIN Diagnoses Pneumonia due to COVID-19 virus U07.1; J12.82 Delirium R41.0 ANSHUL (acute kidney injury) N17.9 Urinary retention R33.9 Acute respiratory failure with hypoxia J96.01 Weakness R53.1 Dementia with aggressive behavior F03.91 Metabolic encephalopathy G93.41
[2022-09-12] MEDS: ENOXAPARIN INJ 40 MG/0.4 ML SYR SQ SCH (23:32)
[2022-09-13] MEDS: LEVOTHYROXINE SODIUM 25 MCG TABLET PO SCH (07:43)
[2022-09-13] MEDS: OLANZapine 10 MG/2.1 ML SDV IM SCH (09:29)
[2022-09-13] MEDS: CHOLECALCIFEROL 1,000 UNITS 25 MCG TAB PO SCH (10:16)
[2022-09-13] MEDS: ASPIRIN 81 MG ECTAB PO SCH (10:16)
[2022-09-13] MEDS: DONEPEZIL HCL 10 MG TAB PO SCH (10:16)
[2022-09-13] MEDS: DORZOLAMIDE/TIMOLOL 22.3/6.8MG/ML 10 ML BTL OPB SCH ×2 (10:16→22:35)
[2022-09-13] MEDS: LATANOPROST 0.005% OP SOLN 2.5 ML BTL OPB SCH (10:16)
[2022-09-13] MEDS: FINASTERIDE 5 MG TAB PO SCH (10:16)
[2022-09-13] MEDS: MULTIVITAMIN TAB PO SCH (10:17)
[2022-09-13] MEDS: TAMSULOSIN HCL 0.4 MG CAP PO SCH (10:17)
[2022-09-13] MEDS: METOPROLOL TARTRATE 25 MG TAB PO SCH ×2 (10:17→22:36)
[2022-09-13 10:25] LABS: Creatinine Clr Calc Pharmacy 42.5 ml/min; Est GFR (African American) 45.2 ml/min
--- NOTE | 2022-09-13 16:54 | Hospitalist Progress Note ---
Date of Service September 13, 2022 Assessment & Plan (1) Pneumonia due to COVID-19 virus: Plan: Resolved patient initially was relatively asymptomatic with his COVID However, now he is hypoxic Off of remdesivir Discontinued Decadron in case the steroid is causing psychosis No evident respiratory distress at this time Off of oxygen now Incentive spirometer Flutter valve COVID isolation precautions removed. (2) Delirium: Plan: Multifactorial, likely related to COVID, steroids, hospital stay on top of baseline dementia Discontinued Decadron Per palliative care recommendation, switched Zyprexa from p.o. to IM as he has had unreliable p.o. intake and has ongoing issues with agitation and combativeness One-to-one sitter in the room (3) ANSHUL (acute kidney injury): Plan: Cr 1.72 up from 1.31. NSS Was given IV fluids initially followed by shortness of breath and cough Chest x-ray showed fluid overload 09/03 IV Lasix given 09/03. Creatinine bumped today again at 1.6 Check BMP daily Start IV fluids at 80 mils an hour (4) Urinary retention: Plan: Currently patient is sleeping Continue Flomax that was started No more issues with retention. He is incontinent. (5) Acute respiratory failure with hypoxia: Plan: Resolved Most likely secondary to COVID-pneumonia Does not appear fluid overloaded anymore. Was given IV Lasix on 09/03 with good diuretic response I had discontinued the Mcginnis catheter. Discontinue Decadron Off of oxygen (6) Weakness: Plan: Secondary to COVID PT/OT Patient will likely need senior living placement (7) Dementia with aggressive behavior: Plan: Continue one-to-one sitter in the room for now Per palliative care recommendation, switched from p.o. to IM Zyprexa Patient will need to be without a sitter to be able to be discharged to SNF Spoke to daughter in the past few days during this hospital stay about overall condition: Baseline dementia, advanced age, now with COVID, agitation getting in the way of his medical treatment. Daughter gave me the decision to change his CODE STATUS to a DNR/DNI. Palliative care on board (8) Metabolic encephalopathy: Plan: Suspect secondary to COVID CT head negative for intracranial pathology Hospital-acquired delirium is probably playing a role as well. Plan Patient presented with COVID. Initially was minimally symptomatic. However he was very delirious. During the course of the hospital stay, he became hypoxic and short of breath related to COVID. He was started on remdesivir and Decadron. From a COVID standpoint, he is now doing very well. Off of oxygen. Placement continues to be an issue as he is still requiring one-to-one sitter and is still combative when awake VTE Prophylaxis - Lovenox 40mg SQ daily Diet - regular Code: DNR/DNI Admission and Anticipated Discharge Date Admission Date: September 02, 2022 Subjective Per nurse, patient still wakes up combative. One-to-one sitter in the room. Review of Systems Review of Systems: All systems reviewed & are unremarkable except as noted in Subjective Physical Exam Physical Exam: General: Sleeping. Heart: S1, S2/regular rate and rhythm, no murmur rubs or gallops Lungs: Clear to auscultation bilaterally. Normal effort Abdomen: Soft/nontender/nondistended. No hepatosplenomegaly Extremities: No clubbing/cyanosis. No edema Behavior: Unable to assess as he is sleeping. Chose not to wake him up. Results & Data Results & Data Vital Signs (Past 12 Hours) Vital Signs Pulse Resp BP Pulse Ox O2 Del Method 09/13/22 09:28 72 16 117/82 92 Room Air Laboratory Results Abnormal lab results 09/13/22 Range/Units 09:41 Creatinine 1.60 H (0.6-1.4) mg/dl PG Care Time/CCT Total # of Minutes Spent Total Time Spent with Patient: Total time spent is greater than 50% in coordination of care (as documented) at patient's floor/unit and/or counseling patient: Coding Level of Care Code 28594 SUB INP/OBS CARE 2/35MIN Diagnoses Pneumonia due to COVID-19 virus U07.1; J12.82 Delirium R41.0 ANSHUL (acute kidney injury) N17.9 Urinary retention R33.9 Acute respiratory failure with hypoxia J96.01 Weakness R53.1 Dementia with aggressive behavior F03.91 Metabolic encephalopathy G93.41
[2022-09-13] MEDS: SODIUM CHLORIDE 0.9% 1000ML 1,000 ML IV SCH (17:36)
[2022-09-13] MEDS: ENOXAPARIN INJ 40 MG/0.4 ML SYR SQ SCH (22:35)
[2022-09-14] MEDS: SODIUM CHLORIDE 0.9% 1000ML 1,000 ML IV SCH (03:57)
[2022-09-14] MEDS: LEVOTHYROXINE SODIUM 25 MCG TABLET PO SCH (05:42)
[2022-09-14] MEDS: DONEPEZIL HCL 10 MG TAB PO SCH (10:00)
[2022-09-14] MEDS: TAMSULOSIN HCL 0.4 MG CAP PO SCH (10:01)
[2022-09-14] MEDS: CHOLECALCIFEROL 1,000 UNITS 25 MCG TAB PO SCH (10:01)
[2022-09-14] MEDS: FINASTERIDE 5 MG TAB PO SCH (10:01)
[2022-09-14] MEDS: MULTIVITAMIN TAB PO SCH (10:01)
[2022-09-14] MEDS: METOPROLOL TARTRATE 25 MG TAB PO SCH ×2 (10:01→20:23)
[2022-09-14] MEDS: ASPIRIN 81 MG ECTAB PO SCH (10:01)
[2022-09-14] MEDS: DORZOLAMIDE/TIMOLOL 22.3/6.8MG/ML 10 ML BTL OPB SCH ×2 (10:09→20:24)
[2022-09-14] MEDS: LATANOPROST 0.005% OP SOLN 2.5 ML BTL OPB SCH (10:09)
[2022-09-14 11:15] LABS: BUN Creatinine Ratio 16.2 (10-20); Calcium 8.3 mg/dl (8.6-10.3); Creatinine Clr Calc Pharmacy 44.2 ml/min; Est GFR (African American) 47.3 ml/min; Est GFR (Non-African American) 40.8 ml/min; Potassium 4.1 mmol/L (3.5-5.1)
[2022-09-14] MEDS: OLANZapine 10 MG/2.1 ML SDV IM SCH (12:33)
--- NOTE | 2022-09-14 16:37 | Hospitalist Progress Note ---
Date of Service September 14, 2022 Assessment & Plan (1) Pneumonia due to COVID-19 virus: Plan: Resolved patient initially was relatively asymptomatic with his COVID However, now he is hypoxic Off of remdesivir Discontinued Decadron in case the steroid is causing psychosis No evident respiratory distress at this time Off of oxygen now Incentive spirometer Flutter valve COVID isolation precautions removed. (2) Delirium: Plan: Multifactorial, likely related to COVID, steroids, hospital stay on top of baseline dementia Discontinued Decadron Per palliative care recommendation, switched Zyprexa from p.o. to IM as he has had unreliable p.o. intake and has ongoing issues with agitation and combativeness One-to-one sitter in the room (3) ANSHUL (acute kidney injury): Plan: Cr 1.72 up from 1.31. NSS Was given IV fluids initially followed by shortness of breath and cough Chest x-ray showed fluid overload 09/03 IV Lasix given 09/03. Creatinine bumped on 09/13 again at 1.6 Started IV fluids Creatinine down to 1.5 today Switch to half-normal saline due to hypernatremia Check BMP daily (4) Urinary retention: Plan: Currently patient is sleeping Continue Flomax that was started No more issues with retention. He is incontinent. (5) Acute respiratory failure with hypoxia: Plan: Resolved Most likely secondary to COVID-pneumonia Does not appear fluid overloaded anymore. Was given IV Lasix on 09/03 with good diuretic response I had discontinued the Mcginnis catheter. Discontinue Decadron Off of oxygen (6) Weakness: Plan: Secondary to COVID PT/OT Patient will likely need [facility] placement (7) Dementia with aggressive behavior: Plan: Continue one-to-one sitter in the room for now. Provided patient remains cooperative, the one-to-one sitter may be discontinued soon and we can try to work on usp placement. Per palliative care recommendation, switched from p.o. to IM Zyprexa Patient will need to be without a sitter to be able to be discharged to SNF Spoke to daughter in the past few days during this hospital stay about overall condition: Baseline dementia, advanced age, now with COVID, agitation getting in the way of his medical treatment. Daughter gave me the decision to change his CODE STATUS to a DNR/DNI. Palliative care on board (8) Metabolic encephalopathy: Plan: Suspect secondary to COVID CT head negative for intracranial pathology Hospital-acquired delirium is probably playing a role as well. Plan Patient presented with COVID. Initially was minimally symptomatic. However he was very delirious. During the course of the hospital stay, he became hypoxic and short of breath related to COVID. He was started on remdesivir and Decadron. From a COVID standpoint, he is now doing very well. Off of oxygen. Placement continues to be an issue as he is still requiring one-to-one sitter. Today he is a little more cooperative. Hoping to remove one-to-one sitter soon. Started half normal saline to treat acute kidney injury and hypernatremia. VTE Prophylaxis - Lovenox 40mg SQ daily Diet - regular Code: DNR/DNI Admission and Anticipated Discharge Date Admission Date: September 02, 2022 Subjective Patient is not as agitated today. Review of Systems Review of Systems: Unobtainable due to cognitive status Physical Exam Physical Exam: General: Awake, cooperative, mumbling Heart: S1, S2/regular rate and rhythm, no murmur rubs or gallops Lungs: Clear to auscultation bilaterally. Normal effort Abdomen: Soft/nontender/nondistended. No hepatosplenomegaly Extremities: No clubbing/cyanosis. No edema Behavior: Cooperative Results & Data Results & Data Vital Signs (Past 12 Hours) Vital Signs Temp Pulse Resp BP Pulse Ox O2 Del Method 09/14/22 08:03 36.8 C 67 16 112/75 92 Room Air Laboratory Results Abnormal lab results 09/14/22 Range/Units 10:26 Sodium 152 H (136-145) mmol/L Chloride 120 H (98-107) mmol/L BUN 25 H (6-23) mg/dl Creatinine 1.54 H (0.6-1.4) mg/dl Glucose 112 H (70-99(Fasting)) mg/dl Calcium 8.3 L (8.6-10.3) mg/dl PG Care Time/CCT Total # of Minutes Spent Total Time Spent with Patient: Total time spent is greater than 50% in coordination of care (as documented) at patient's floor/unit and/or counseling patient: Coding Level of Care Code 55666 SUB INP/OBS CARE 2/35MIN Diagnoses Pneumonia due to COVID-19 virus U07.1; J12.82 Delirium R41.0 ANSHUL (acute kidney injury) N17.9 Urinary retention R33.9 Acute respiratory failure with hypoxia J96.01 Weakness R53.1 Dementia with aggressive behavior F03.91 Metabolic encephalopathy G93.41
[2022-09-14] MEDS: SODIUM CHLORIDE 0.45 % 1,000 ML IV SCH (16:43)
--- NOTE | 2022-09-14 16:52 | Palliative Care Progress Note ---
Date of Service September 14, 2022 Assessment & Plan (1) Palliative care by specialist: (2) Dementia with aggressive behavior: Plan: Begin transition to oral zyprexa, will given Zyprexa Zydis 10mg PO QAM and will keep Zyprexa 5mg IM daily prn for management of breakthrough agitation or if PO refused. Present on Admission?: Yes (3) Discussion about advance care planning held with family member: (4) Acute respiratory failure with hypoxia: (5) Pneumonia due to COVID-19 virus: (6) Metabolic encephalopathy: Plan Will begin transition to PO ZYprexa orders written he cannot go to SNF until off 1:1 unlikely that all needs can be managed at home by just his even with addition of hospice, their presence in pt home is as a visitor for 1-2 hr max daily. Unless family commits to being engaged actively in his care in a detention and ongoing manner, home with hsopice likely will not suffice manuel given 's frailty and her own advancing age. Thank you for allowing us to participate in the ongoing care of this patient. Please don't hesitate to call or page with any additional concerns. Dr. Alanna Cantor DNP Director, Palliative Care Admission and Anticipated Discharge Date Admission Date: September 02, 2022 Subjective Agitation a little better but still with 1:1 taking more PO meds consistently +adv dementia, not decisional Review of Systems Review of Systems: Unobtainable due to cognitive status Physical Exam Physical Exam: restless at times, exam deferred Results & Data Vital Signs (Past 12 Hours) Vital Signs Temp Pulse Resp BP Pulse Ox O2 Del Method 09/14/22 08:03 36.8 C 67 16 112/75 92 Room Air PG Care Time/CCT Total # of Minutes Spent Total Time Spent: 45 Total Time Spent with Patient: Total time spent is greater than 50% in coordination of care (as documented) at patient's floor/unit and/or counseling patient: Coding [place] [address] SUB INP/OBS CARE 3/50MIN Patient Type Established History Detailed Exam Problem Focused Medical Decision Making High Complexity Diagnoses Palliative care by specialist Z51.5 Dementia with aggressive behavior F03.91 Discussion about advance care planning held with family member Z71.0 Acute respiratory failure with hypoxia J96.01 Pneumonia due to COVID-19 virus U07.1; J12.82 Metabolic encephalopathy G93.41
[2022-09-14] MEDS: ENOXAPARIN INJ 40 MG/0.4 ML SYR SQ SCH (20:24)
[2022-09-15] MEDS: OLANZapine 10 MG/2.1 ML SDV IM PRN (04:11)
[2022-09-15] MEDS: SODIUM CHLORIDE 0.45 % 1,000 ML IV SCH ×2 (04:31→16:39)
[2022-09-15] MEDS: LEVOTHYROXINE SODIUM 25 MCG TABLET PO SCH (05:21)
[2022-09-15 08:12] LABS: BUN Creatinine Ratio 17.1 (10-20); Calcium 8.2 mg/dl (8.6-10.3); Creatinine Clr Calc Pharmacy 46.6 ml/min; Est GFR (African American) 50.5 ml/min; Est GFR (Non-African American) 43.5 ml/min
[2022-09-15] MEDS: ASPIRIN 81 MG ECTAB PO SCH (08:46)
[2022-09-15] MEDS: CHOLECALCIFEROL 1,000 UNITS 25 MCG TAB PO SCH (08:46)
[2022-09-15] MEDS: TAMSULOSIN HCL 0.4 MG CAP PO SCH (08:47)
[2022-09-15] MEDS: DONEPEZIL HCL 10 MG TAB PO SCH (08:47)
[2022-09-15] MEDS: FINASTERIDE 5 MG TAB PO SCH (08:47)
[2022-09-15] MEDS: DORZOLAMIDE/TIMOLOL 22.3/6.8MG/ML 10 ML BTL OPB SCH ×2 (08:47→20:11)
[2022-09-15] MEDS: MULTIVITAMIN TAB PO SCH (08:47)
[2022-09-15] MEDS: LATANOPROST 0.005% OP SOLN 2.5 ML BTL OPB SCH (08:48)
[2022-09-15] MEDS ORDERED: OLANZapine 5 MG TABLET PO ONE (09:55)
[2022-09-15] MEDS: METOPROLOL TARTRATE 25 MG TAB PO SCH ×2 (10:19→20:11)
[2022-09-15] MEDS: ENOXAPARIN INJ 40 MG/0.4 ML SYR SQ SCH (20:11)
--- NOTE | 2022-09-15 22:36 | Hospitalist Progress Note ---
Date of Service September 15, 2022 Assessment & Plan (1) Pneumonia due to COVID-19 virus: Plan: Resolved patient initially was relatively asymptomatic with his COVID However, now he is hypoxic Off of remdesivir Discontinued Decadron in case the steroid is causing psychosis No evident respiratory distress at this time Off of oxygen now Incentive spirometer Flutter valve COVID isolation precautions removed. (2) Delirium: Plan: Multifactorial, likely related to COVID, steroids, hospital stay on top of baseline dementia Discontinued Decadron Per palliative care recommendation, switched Zyprexa from p.o. to IM as he has had unreliable p.o. intake and has ongoing issues with agitation and combativeness One-to-one sitter in the room Plan to move patient closer to nurses station and remove one to one. Update: one to one removed on 09/15 (3) ANSHUL (acute kidney injury): Plan: Cr 1.72 up from 1.31. NSS Was given IV fluids initially followed by shortness of breath and cough Chest x-ray showed fluid overload 09/03 IV Lasix given 09/03. Creatinine bumped on 09/13 again at 1.6 Started IV fluids Creatinine down to 1.5 today Switch to half-normal saline due to hypernatremia Check BMP daily (4) Urinary retention: Plan: Currently patient is sleeping Continue Flomax that was started No more issues with retention. He is incontinent. (5) Acute respiratory failure with hypoxia: Plan: Resolved Most likely secondary to COVID-pneumonia Does not appear fluid overloaded anymore. Was given IV Lasix on 09/03 with good diuretic response I had discontinued the Mcginnis catheter. Discontinue Decadron Off of oxygen (6) Weakness: Plan: Secondary to COVID PT/OT Patient will likely need usp placement (7) Dementia with aggressive behavior: Plan: Continue one-to-one sitter in the room for now. Provided patient remains cooperative, the one-to-one sitter may be discontinued soon and we can try to work on usp placement. Per palliative care recommendation, switched from p.o. to IM Zyprexa Patient will need to be without a sitter to be able to be discharged to SNF Spoke to daughter in the past few days during this hospital stay about overall condition: Baseline dementia, advanced age, now with COVID, agitation getting in the way of his medical treatment. Daughter gave me the decision to change his CODE STATUS to a DNR/DNI. Palliative care on board (8) Metabolic encephalopathy: Plan: Suspect secondary to COVID CT head negative for intracranial pathology Hospital-acquired delirium is probably playing a role as well. Plan Patient presented with COVID. Initially was minimally symptomatic. However he was very delirious. During the course of the hospital stay, he became hypoxic and short of breath related to COVID. He was started on remdesivir and Decadron. From a COVID standpoint, he is now doing very well. Off of oxygen. Placement continues to be an issue as he is still requiring one-to-one sitter. Today he is a little more cooperative. Hoping to remove one-to-one sitter soon. Started half normal saline to treat acute kidney injury and hypernatremia. VTE Prophylaxis - Lovenox 40mg SQ daily Diet - regular Code: DNR/DNI Admission and Anticipated Discharge Date Admission Date: September 02, 2022 Subjective 86 yo male is confused. Has a one to one. Review of Systems Review of Systems: All systems reviewed & are unremarkable except as noted in HPI & below Physical Exam Physical Exam: General: Awake, cooperative, mumbling Heart: S1, S2/regular rate and rhythm, no murmur rubs or gallops Lungs: Clear to auscultation bilaterally. Normal effort Abdomen: Soft/nontender/nondistended. No hepatosplenomegaly Extremities: No clubbing/cyanosis. No edema Behavior: Cooperative Results & Data Results & Data Vital Signs (Past 12 Hours) Vital Signs Temp Pulse Resp BP Pulse Ox O2 Del Method 09/15/22 14:26 36.9 C 67 18 105/68 97 Room Air PG Care Time/CCT Total # of Minutes Spent Total Time Spent with Patient: Total time spent is greater than 50% in coordination of care (as documented) at patient's floor/unit and/or counseling patient: Coding Level of Care Code 93459 SUB INP/OBS CARE 2/35MIN Diagnoses Pneumonia due to COVID-19 virus U07.1; J12.82 Delirium R41.0 ANSHUL (acute kidney injury) N17.9 Urinary retention R33.9 Acute respiratory failure with hypoxia J96.01 Weakness R53.1 Dementia with aggressive behavior F03.91 Metabolic encephalopathy G93.41
[2022-09-16] MEDS: SODIUM CHLORIDE 0.45 % 1,000 ML IV SCH (05:43)
[2022-09-16] MEDS: LEVOTHYROXINE SODIUM 25 MCG TABLET PO SCH (05:45)
[2022-09-16] MEDS: METOPROLOL TARTRATE 25 MG TAB PO SCH ×2 (08:40→21:00)
[2022-09-16] MEDS: TAMSULOSIN HCL 0.4 MG CAP PO SCH (08:40)
[2022-09-16] MEDS: DONEPEZIL HCL 10 MG TAB PO SCH (08:41)
[2022-09-16] MEDS: FINASTERIDE 5 MG TAB PO SCH (08:41)
[2022-09-16] MEDS: CHOLECALCIFEROL 1,000 UNITS 25 MCG TAB PO SCH (08:41)
[2022-09-16] MEDS: MULTIVITAMIN TAB PO SCH (08:41)
[2022-09-16] MEDS: ASPIRIN 81 MG ECTAB PO SCH (08:41)
[2022-09-16] MEDS: DORZOLAMIDE/TIMOLOL 22.3/6.8MG/ML 10 ML BTL OPB SCH ×2 (09:21→21:00)
[2022-09-16] MEDS: LATANOPROST 0.005% OP SOLN 2.5 ML BTL OPB SCH (09:21)
[2022-09-16 09:30] LABS: BUN Creatinine Ratio 15.4 (10-20); Creatinine Clr Calc Pharmacy 55.3 ml/min; Est GFR (African American) 62.1 ml/min; Est GFR (Non-African American) 53.6 ml/min; Potassium 3.8 mmol/L (3.5-5.1)
--- NOTE | 2022-09-16 09:42 | Palliative Care Progress Note ---
Date of Service September 15, 2022 Assessment & Plan (1) Palliative care by specialist: (2) Dementia with aggressive behavior: Plan: Continue oral Zyprexa Zydis 10mg PO QAM Will keep Zyprexa 5mg IM daily prn for management of breakthrough agitation or if PO refused. Present on Admission?: Yes (3) Acute respiratory failure with hypoxia: (4) Pneumonia due to COVID-19 virus: (5) Metabolic encephalopathy: Plan Continue Zyprexa Zydis 10mg ODT PO daily Continue efforts to minimize sitter, consider engaging patient with dementia directed distraction tasks: Puzzles, word games, picture books, arts and crafts, music, dancing, gardening, walking, and folding clothes are just some of the many activities that one with Alzheimer's or dementia can participate. Also consider a dementia fidget blanket: lap-size quilt that provides sensory and tactile stimulation for the restless hands of someone with Alzheimer's or other forms of dementia - helps create a settled feeling by keeping their hands busy. Encourage family to visit during the day time to assist in keeping patient more engaged. Consider daily PT even if passive ROM or simple maneuvers at bedside, may help improve his strength but also provide some exertional activity which can help patient feel more restful by end of day. Patient's agitation is improving and SNF placement is still recommended as safet option unless family commits to scheduled caregiving schedule so that his also- elderly is not the sole provider. I will follow peripherally. Thank you for allowing us to participate in the ongoing care of this patient. Please don't hesitate to call or page with any additional concerns. Dr. Alanna Cantor DNP Director, Palliative Care Admission and Anticipated Discharge Date Admission Date: September 02, 2022 Subjective seems calmer after several days of Zyprexa IM, now cooperative with PO meds but still resists taking meals at times. was able to ambulate to bathroom with staff but with assistance and direction. he remains confused and with garbled speech. Review of Systems Review of Systems: Unobtainable due to cognitive status Physical Exam Physical Exam: resting, no acute distress but will swat away provider when attempting to proceed with exam unintelligible garbling no resp distress cannot follow commands skin pale Results & Data Vital Signs (Past 12 Hours) Vital Signs Temp Pulse Resp BP Pulse Ox O2 Del Method 09/16/22 08:10 36.8 C 67 18 110/71 97 Room Air Laboratory Results reviewed Diagnostic Findings reviewed PG Care Time/CCT Total # of Minutes Spent Total Time Spent: 64 Total Time Spent with Patient: Total time spent is greater than 50% in coordination of care (as documented) at patient's floor/unit and/or counseling patient: Coding [place] [address] SUB INP/OBS CARE 3/50MIN Patient Type Established History Comprehensive Exam Detailed Medical Decision Making Moderate Complexity Diagnoses Palliative care by specialist Z51.5 Dementia with aggressive behavior F03.91 Acute respiratory failure with hypoxia J96.01 Pneumonia due to COVID-19 virus U07.1; J12.82 Metabolic encephalopathy G93.41
[2022-09-16] MEDS: OLANZapine 10 MG/2.1 ML SDV IM PRN (19:49)
[2022-09-16] MEDS: ENOXAPARIN INJ 40 MG/0.4 ML SYR SQ SCH (21:00)
--- NOTE | 2022-09-16 23:00 | Hospitalist Progress Note ---
Date of Service September 16, 2022 Assessment & Plan (1) Pneumonia due to COVID-19 virus: Plan: Resolved patient initially was relatively asymptomatic with his COVID However, now he is hypoxic Off of remdesivir Discontinued Decadron in case the steroid is causing psychosis No evident respiratory distress at this time Off of oxygen now Incentive spirometer Flutter valve COVID isolation precautions removed. (2) Delirium: Plan: Multifactorial, likely related to COVID, steroids, hospital stay on top of baseline dementia Discontinued Decadron Per palliative care recommendation, switched Zyprexa from p.o. to IM as he has had unreliable p.o. intake and has ongoing issues with agitation and combativeness One to one removed on 09/15 pending placement (3) ANSHUL (acute kidney injury): Plan: Cr 1.72 up from 1.31. NSS Was given IV fluids initially followed by shortness of breath and cough Chest x-ray showed fluid overload 09/03 IV Lasix given 09/03. Creatinine bumped on 09/13 again at 1.6 resolved on 09/16 IVF stopped (4) Urinary retention: Plan: Currently patient is sleeping Continue Flomax that was started No more issues with retention. He is incontinent. (5) Acute respiratory failure with hypoxia: Plan: Resolved Most likely secondary to COVID-pneumonia Does not appear fluid overloaded anymore. Was given IV Lasix on 09/03 with good diuretic response I had discontinued the Mcginnis catheter. Discontinue Decadron Off of oxygen (6) Weakness: Plan: Secondary to COVID PT/OT Patient will likely need senior care placement (7) Dementia with aggressive behavior: Plan: Continue one-to-one sitter in the room for now. Provided patient remains cooperative, the one-to-one sitter may be discontinued soon and we can try to work on senior care placement. Per palliative care recommendation, back to PO zyprexa. off one to one. pending placement (8) Metabolic encephalopathy: Plan: Suspect secondary to COVID CT head negative for intracranial pathology Hospital-acquired delirium is probably playing a role as well. Plan VTE Prophylaxis - Lovenox 40mg SQ daily Diet - regular Code: DNR/DNI Admission and Anticipated Discharge Date Admission Date: September 02, 2022 Subjective Patient is confused but is calm. No longer requires 1 to 1. Review of Systems Review of Systems: Unobtainable due to cognitive status Physical Exam Physical Exam: General: Awake, cooperative, mumbling Heart: S1, S2/regular rate and rhythm, no murmur rubs or gallops Lungs: Clear to auscultation bilaterally. Normal effort Abdomen: Soft/nontender/nondistended. No hepatosplenomegaly Extremities: No clubbing/cyanosis. No edema Behavior: Cooperative Results & Data Results & Data Vital Signs (Past 12 Hours) Vital Signs Temp Pulse Resp BP Pulse Ox O2 Del Method 09/16/22 14:50 36.5 C 79 18 134/73 94 Room Air PG Care Time/CCT Total # of Minutes Spent Total Time Spent with Patient: Total time spent is greater than 50% in coordination of care (as documented) at patient's floor/unit and/or counseling patient: Coding Level of Care Code 91509 SUB INP/OBS CARE 2/35MIN Diagnoses Pneumonia due to COVID-19 virus U07.1; J12.82 Delirium R41.0 ANSHUL (acute kidney injury) N17.9 Urinary retention R33.9 Acute respiratory failure with hypoxia J96.01 Weakness R53.1 Dementia with aggressive behavior F03.91 Metabolic encephalopathy G93.41
[2022-09-17] MEDS: LEVOTHYROXINE SODIUM 25 MCG TABLET PO SCH (06:46)
[2022-09-17 08:04] LABS: BUN Creatinine Ratio 13.1 (10-20); Calcium 8.9 mg/dl (8.6-10.3); Creatinine Clr Calc Pharmacy 55.8 ml/min; Est GFR (African American) 62.7 ml/min; Est GFR (Non-African American) 54.1 ml/min; Potassium 4.3 mmol/L (3.5-5.1)
--- NOTE | 2022-09-17 09:17 | Hospitalist Progress Note ---
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 (2) Delirium: Plan: acute, metabolic encephalopathy Multifactorial, likely related to COVID, steroids, hospital stay on top of baseline dementia Discontinued Decadron Per palliative care recommendation, switched Zyprexa from p.o. to IM as he has had unreliable p.o. intake and has ongoing issues with agitation and combativeness One to one removed on 09/15 pending placement (3) ANSHUL (acute kidney injury): Plan: acute resolved, ckd 3 typically (4) Urinary retention: Plan: acute resolved with flomax (5) Weakness: Plan: Secondary to COVID PT/OT Patient will likely need alf placement (6) Dementia with aggressive behavior: Plan: Continue one-to-one sitter in the room for now. Provided patient remains cooperative, the one-to-one sitter may be discontinued soon and we can try to work on alf placement. Per palliative care recommendation, back to PO zyprexa. off one to one. pending placement (7) Metabolic encephalopathy: Plan: Suspect secondary to COVID CT head negative for intracranial pathology Hospital-acquired delirium is probably playing a role as well. Plan VTE Prophylaxis - Lovenox 40mg SQ daily Diet - regular Code: DNR/DNI Admission and Anticipated Discharge Date Admission Date: September 02, 2022 Subjective this pts is mildly sedated, mumbles but tries to make conversation daughter is at bedside Physical Exam Physical Exam: mildly confused no focal complaints cardiac is regular, lungs are clear Results & Data Results & Data Vital Signs (Past 12 Hours) Vital Signs Temp Pulse Resp BP Pulse Ox O2 Del Method 09/17/22 07:39 98.1 F 80 18 100/71 96 Room Air PG Care Time/CCT Total # of Minutes Spent Total Time Spent with Patient: Total time spent is greater than 50% in coordination of care (as documented) at patient's floor/unit and/or counseling patient: Coding Level of Care Code 43442 SUB INP/OBS CARE 2/35MIN Diagnoses Pneumonia due to COVID-19 virus U07.1; J12.82 Delirium R41.0 ANSHUL (acute kidney injury) N17.9 Urinary retention R33.9 Weakness R53.1 Dementia with aggressive behavior F03.91 Metabolic encephalopathy G93.41
[2022-09-17] MEDS: MULTIVITAMIN TAB PO SCH (09:26)
[2022-09-17] MEDS: DONEPEZIL HCL 10 MG TAB PO SCH (09:26)
[2022-09-17] MEDS: CHOLECALCIFEROL 1,000 UNITS 25 MCG TAB PO SCH (09:26)
[2022-09-17] MEDS: FINASTERIDE 5 MG TAB PO SCH (09:26)
[2022-09-17] MEDS: ASPIRIN 81 MG ECTAB PO SCH (09:26)
[2022-09-17] MEDS: LATANOPROST 0.005% OP SOLN 2.5 ML BTL OPB SCH (09:27)
[2022-09-17] MEDS: METOPROLOL TARTRATE 25 MG TAB PO SCH ×2 (09:27→20:36)
[2022-09-17] MEDS: TAMSULOSIN HCL 0.4 MG CAP PO SCH (09:27)
[2022-09-17] MEDS: DORZOLAMIDE/TIMOLOL 22.3/6.8MG/ML 10 ML BTL OPB SCH ×2 (09:39→20:37)
--- NOTE | 2022-09-17 13:29 | Palliative Care Progress Note ---
Date of Service September 17, 2022 Assessment & Plan (1) Palliative care by specialist: (2) Dementia with aggressive behavior: Plan: Continue oral Zyprexa Zydis 10mg PO QAM Keep Zyprexa 5mg IM daily prn for management of breakthrough agitation or if PO refused. Recommend asking SNF of choice if this can be a back up option at their facility. Present on Admission?: Yes (3) Acute respiratory failure with hypoxia: Plan: resolved (4) Pneumonia due to COVID-19 virus: (5) Metabolic encephalopathy: Plan Continue Zyprexa Zydis 10mg ODT PO daily Continue efforts engage patient with dementia directed distraction tasks: Puzzles, word games, picture books, arts and crafts, music, dancing, gardening, walking, and folding clothes are just some of the many activities that one with Alzheimer's or dementia can participate. Also consider a dementia fidget blanket: lap-size quilt that provides sensory and tactile stimulation for the restless hands of someone with Alzheimer's or other forms of dementia - helps create a settled feeling by keeping their hands busy. Encourage family to visit during the day time to assist in keeping patient more engaged. Consider daily PT even if passive ROM or simple maneuvers at bedside, may help improve his strength but also provide some exertional activity which can help patient feel more restful by end of day. Patient's agitation improved. SNF placement is recommended as likely the safest option unless family commits to scheduled caregiving schedule so that his also-elderly is not the sole provider. Palliative Med will sign off. We remain available to assist with any urgent needs prn. Thank you for allowing us to participate in the ongoing care of this patient. Please don't hesitate to call or page with any additional concerns. Dr. Alanna Cantor DNP Director, Palliative Care Admission and Anticipated Discharge Date Admission Date: September 02, 2022 Subjective behavior improved, tolerating orals including zyprexa zydis with reduction in combative agitation, no longer needs 1:1 sitter remains confused at baseline, speech garbled Review of Systems Review of Systems: Unobtainable due to cognitive status Physical Exam Physical Exam: resting, no acute distress irritated if detailed exam is attempted/swats away provider garbled speech pattern, nonsensical no resp distress cannot follow commands skin pale, warm Results & Data Vital Signs (Past 12 Hours) Vital Signs Temp Pulse Resp BP Pulse Ox O2 Del Method 09/17/22 07:39 36.7 C 80 18 100/71 96 Room Air PG Care Time/CCT Total # of Minutes Spent Total Time Spent: 55 Total Time Spent with Patient: Total time spent is greater than 50% in coordination of care (as documented) at patient's floor/unit and/or counseling patient: Coding [place] [address] SUB INP/OBS CARE 2/35MIN Patient Type Established History Comprehensive Exam Expanded Problem Focused Medical Decision Making Moderate Complexity Diagnoses Palliative care by specialist Z51.5 Dementia with aggressive behavior F03.91 Acute respiratory failure with hypoxia J96.01 Pneumonia due to COVID-19 virus U07.1; J12.82 Metabolic encephalopathy G93.41
[2022-09-17] MEDS: ENOXAPARIN INJ 40 MG/0.4 ML SYR SQ SCH (20:36)
[2022-09-18] MEDS: LEVOTHYROXINE SODIUM 25 MCG TABLET PO SCH (05:42)
[2022-09-18 11:01] LABS: Calcium 8.3 mg/dl (8.6-10.3); Creatinine Clr Calc Pharmacy 59.2 ml/min; Est GFR (African American) 67.4 ml/min; Est GFR (Non-African American) 58.1 ml/min; Potassium 3.9 mmol/L (3.5-5.1)
[2022-09-18] MEDS: DONEPEZIL HCL 10 MG TAB PO SCH (12:38)
[2022-09-18] MEDS: MULTIVITAMIN TAB PO SCH (12:38)
[2022-09-18] MEDS: FINASTERIDE 5 MG TAB PO SCH (12:38)
[2022-09-18] MEDS: TAMSULOSIN HCL 0.4 MG CAP PO SCH (12:38)
[2022-09-18] MEDS: ASPIRIN 81 MG ECTAB PO SCH (12:38)
[2022-09-18] MEDS: CHOLECALCIFEROL 1,000 UNITS 25 MCG TAB PO SCH (12:38)
[2022-09-18] MEDS: DORZOLAMIDE/TIMOLOL 22.3/6.8MG/ML 10 ML BTL OPB SCH ×2 (12:39→21:29)
[2022-09-18] MEDS: LATANOPROST 0.005% OP SOLN 2.5 ML BTL OPB SCH (12:39)
[2022-09-18] MEDS: METOPROLOL TARTRATE 25 MG TAB PO SCH ×2 (12:39→21:30)
--- NOTE | 2022-09-18 19:09 | Hospitalist Progress Note ---
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 (2) Delirium: Plan: acute, metabolic encephalopathy Multifactorial, likely related to COVID, steroids, hospital stay on top of baseline dementia Discontinued Decadron Per palliative care recommendation, switched Zyprexa from p.o, make it bid ,add melatonin hs. to IM as he has had unreliable p.o. intake and has ongoing issues with agitation and combativeness One to one removed on 09/15 pending placement (3) ANSHUL (acute kidney injury): Plan: acute resolved, ckd 3 typically (4) Urinary retention: Plan: acute resolved with flomax (5) Weakness: Plan: Secondary to COVID PT/OT Patient will likely need residential placement (6) Dementia with aggressive behavior: Plan: Continue one-to-one sitter in the room for now. 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 Per palliative care recommendation, back to PO zyprexa. off one to one. pending placement (7) Metabolic encephalopathy: Plan: Suspect secondary to COVID CT head negative for intracranial pathology Hospital-acquired delirium is probably playing a role as well. Plan VTE Prophylaxis - Lovenox 40mg SQ daily Diet - regular Code: DNR/DNI Admission and Anticipated Discharge Date Admission Date: September 02, 2022 Subjective this pts is mildly sedated, mumbles but tries to make conversation daughter is at bedside Physical Exam Physical Exam: medically stable, not oriented to place or time at bedside and updated, respiratory status is stable Results & Data Results & Data Vital Signs (Past 12 Hours) Vital Signs Temp Pulse Pulse Resp BP BP Pulse Ox 09/18/22 14:59 97.5 F L 70 16 135/56 L 96 09/18/22 13:01 09/18/22 07:13 97.5 F L 75 16 132/72 93 O2 Del Method 09/18/22 14:59 Room Air 09/18/22 13:01 Room Air 09/18/22 07:13 Room Air Laboratory Results Reviewed chemistry Discussed case with PG Care Time/CCT Total # of Minutes Spent Total Time Spent with Patient: Total time spent is greater than 50% in coordination of care (as documented) at patient's floor/unit and/or counseling patient: Coding Level of Care Code 21880 SUB INP/OBS CARE 2/35MIN Diagnoses Pneumonia due to COVID-19 virus U07.1; J12.82 Delirium R41.0 ANSHUL (acute kidney injury) N17.9 Urinary retention R33.9 Weakness R53.1 Dementia with aggressive behavior F03.91 Metabolic encephalopathy G93.41
[2022-09-18] MEDS: MELATONIN 3 MG TAB PO SCH (21:30)
[2022-09-18] MEDS: OLANZapine ZYDIS 5 MG ORALLY DIS. TAB PO SCH (21:30)
[2022-09-18] MEDS: ENOXAPARIN INJ 40 MG/0.4 ML SYR SQ SCH (21:36)
[2022-09-19] MEDS: LEVOTHYROXINE SODIUM 25 MCG TABLET PO SCH (06:22)
[2022-09-19 08:44] LABS: BUN Creatinine Ratio 13.4 (10-20); Calcium 8.6 mg/dl (8.6-10.3); Creatinine Clr Calc Pharmacy 50.8 ml/min; Est GFR (Non-African American) 48.3 ml/min; Potassium 4.2 mmol/L (3.5-5.1)
[2022-09-19] MEDS: DONEPEZIL HCL 10 MG TAB PO SCH (09:09)
[2022-09-19] MEDS: METOPROLOL TARTRATE 25 MG TAB PO SCH ×2 (09:09→20:04)
[2022-09-19] MEDS: OLANZapine ZYDIS 5 MG ORALLY DIS. TAB PO SCH ×2 (09:09→20:03)
[2022-09-19] MEDS: FINASTERIDE 5 MG TAB PO SCH (09:10)
[2022-09-19] MEDS: TAMSULOSIN HCL 0.4 MG CAP PO SCH (09:10)
[2022-09-19] MEDS: DORZOLAMIDE/TIMOLOL 22.3/6.8MG/ML 10 ML BTL OPB SCH ×2 (09:10→20:01)
[2022-09-19] MEDS: LATANOPROST 0.005% OP SOLN 2.5 ML BTL OPB SCH (09:10)
[2022-09-19] MEDS: ASPIRIN 81 MG ECTAB PO SCH (09:10)
[2022-09-19] MEDS: MULTIVITAMIN TAB PO SCH (09:10)
[2022-09-19] MEDS: CHOLECALCIFEROL 1,000 UNITS 25 MCG TAB PO SCH (09:10)
--- NOTE | 2022-09-19 16:40 | Hospitalist Progress Note ---
Date of Service September 19, 2022 Assessment & Plan (1) Pneumonia due to COVID-19 virus: Plan: Acute respiratory failure with hypoxia 2/2 covid 19 infection. Patient has clinically improved and is awaiting placement at this time. 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 Would not recommend trending labs at this point unless he clinically changes. (2) Delirium: Plan: - acute, metabolic encephalopathy Multifactorial, likely related to COVID, steroids, hospital stay on top of baseline dementia - Discontinued Decadron in the event it was contributory (ie steroid psychosis) - Per palliative care recommendation, switched Zyprexa from p.o, make it bid, add melatonin scheduled QHS; zypexa IM dose available prn for issues with agitation and combativeness - One to one removed on 09/15 -- no further combative issues today (09/19/22) (3) ANSHUL (acute kidney injury): Plan: acute resolved, ckd 3 is baseline (4) Urinary retention: Plan: - continue flomax + finasteride (5) Weakness: Plan: Secondary to COVID PT/OT --> recommending placement (6) Dementia with aggressive behavior: Plan: - one to one sitter d/c - per palliative care commendation, he has been restarted on zyprexa 5mg BID with prn dose ordered for acute combativeness (7) Metabolic encephalopathy: Plan: - Suspect secondary to COVID infection - CT head negative for intracranial pathology; structural etiology ruled out - Hospital-acquired delirium is probably playing a role as well, continue home aricept Plan VTE Prophylaxis - Lovenox 40mg SQ daily Diet - regular Code: DNR/DNI Med/Surg Admission and Anticipated Discharge Date Admission Date: September 02, 2022 Subjective mumbles but tries to make conversation -- nursing staff felt as though this was the most communicative/alter he has been in the past several days Review of Systems Review of Systems: Unobtainable due to cognitive status Physical Exam Physical Exam: General Appearance: well-developed, well-nourished adult male in no acute distress HEENT: NC/AT. Sclera anicteric. Skin: warm, dry, and intact Neuro: AAO x 3. No focal deficits. Psych: Appropriate mood and affect. Results & Data Results & Data Vital Signs (Past 12 Hours) Vital Signs Temp Pulse Pulse Resp BP BP Pulse Ox 09/19/22 14:34 36.7 C 73 18 115/74 93 09/19/22 07:50 09/19/22 07:01 36.4 C L 61 16 116/76 94 O2 Del Method 09/19/22 14:34 Room Air 09/19/22 07:50 Room Air 09/19/22 07:01 Room Air PG Care Time/CCT Total # of Minutes Spent Total Time Spent with Patient: Total time spent is greater than 50% in coordination of care (as documented) at patient's floor/unit and/or counseling patient: Coding [place] [address] SUB INP/OBS CARE 2/35MIN Patient Type Established Diagnoses Pneumonia due to COVID-19 virus U07.1; J12.82 Delirium R41.0 ANSHUL (acute kidney injury) N17.9 Urinary retention R33.9 Weakness R53.1 Dementia with aggressive behavior F03.91 Metabolic encephalopathy G93.41
[2022-09-19] MEDS ORDERED: POLYETHYLENE (MIRALAX) 17 GM PACK PO PRN (16:45)
[2022-09-19] MEDS: ENOXAPARIN INJ 40 MG/0.4 ML SYR SQ SCH (20:00)
[2022-09-19] MEDS: MELATONIN 3 MG TAB PO SCH (20:02)
[2022-09-20] MEDS: LEVOTHYROXINE SODIUM 25 MCG TABLET PO SCH (05:30)
[2022-09-20] MEDS: METOPROLOL TARTRATE 25 MG TAB PO SCH ×2 (08:22→21:34)
[2022-09-20] MEDS: OLANZapine ZYDIS 5 MG ORALLY DIS. TAB PO SCH ×2 (08:23→21:00)
[2022-09-20] MEDS: LATANOPROST 0.005% OP SOLN 2.5 ML BTL OPB SCH (08:24)
[2022-09-20] MEDS: DORZOLAMIDE/TIMOLOL 22.3/6.8MG/ML 10 ML BTL OPB SCH ×2 (08:24→20:58)
[2022-09-20] MEDS: CHOLECALCIFEROL 1,000 UNITS 25 MCG TAB PO SCH (08:24)
[2022-09-20] MEDS: FINASTERIDE 5 MG TAB PO SCH (08:25)
[2022-09-20] MEDS: MULTIVITAMIN TAB PO SCH (08:25)
[2022-09-20] MEDS: ASPIRIN 81 MG ECTAB PO SCH (08:25)
[2022-09-20] MEDS: DONEPEZIL HCL 10 MG TAB PO SCH (08:26)
[2022-09-20] MEDS: TAMSULOSIN HCL 0.4 MG CAP PO SCH (08:26)
--- NOTE | 2022-09-20 09:58 | Hospitalist Progress Note ---
Date of Service September 20, 2022 Assessment & Plan (1) Pneumonia due to COVID-19 virus: Plan: Acute respiratory failure with hypoxia 2/2 covid 19 infection. Patient has clinically improved and is awaiting placement at this time. 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 (2) Delirium: Plan: - acute, metabolic encephalopathy Multifactorial, likely related to COVID, steroids, hospital stay on top of baseline dementia - Discontinued Decadron in the event it was contributory (ie steroid psychosis) - Per palliative care recommendation, switched Zyprexa from p.o, make it bid, add melatonin scheduled QHS; zypexa IM dose available prn for issues with agitation and combativeness - One to one removed on 09/15 -- no further combative issues (3) ANSHUL (acute kidney injury): Plan: acute resolved, ckd 3 is baseline (4) Urinary retention: Plan: Chronic and stable BPH- continue flomax + finasteride (5) Weakness: Plan: Acute metabolic encephalopathy secondary to COVID PT/OT --> recommending placement (6) 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 progressive family cannot care for him at home - per palliative care commendation, he has been restarted on zyprexa 5mg BID with prn dose ordered for acute combativeness (7) Metabolic encephalopathy: Plan: - Suspect secondary to COVID infection - CT head negative for intracranial pathology; structural etiology ruled out - Hospital-acquired delirium is probably playing a role as well, continue home aricept Plan VTE Prophylaxis - Lovenox 40mg SQ daily Code: DNR/DNI Admission and Anticipated Discharge Date Admission Date: September 02, 2022 Subjective Patient seems somewhat better with change of Respinol to twice daily from every morning Still mumbling but more awake Physical Exam Physical Exam: Patient awake tries to have conversations but does have some mumbling with his speech. Does reach and shake hands makes eye contact Cardiac exam is regular with a systolic murmur Lungs are clear. Family request attention to toenails these are NOT SIGNIFICANTLY and if patient is going to skilled facility may see podiatry they are welcome to have podiatry come to our facility if we can Results & Data Results & Data Vital Signs (Past 12 Hours) Vital Signs Temp Pulse Resp BP Pulse Ox O2 Del Method 09/20/22 07:35 98.1 F 102 H 17 124/82 92 Room Air 09/20/22 07:20 Room Air 09/19/22 22:32 98.1 F 72 18 115/67 91 Room Air PG Care Time/CCT Total # of Minutes Spent Total Time Spent with Patient: Total time spent is greater than 50% in coordination of care (as documented) at patient's floor/unit and/or counseling patient: Coding Level of Care Code 04152 SUB INP/OBS CARE 2/35MIN Diagnoses Pneumonia due to COVID-19 virus U07.1; J12.82 Delirium R41.0 ANSHUL (acute kidney injury) N17.9 Urinary retention R33.9 Weakness R53.1 Dementia with aggressive behavior F03.91 Metabolic encephalopathy G93.41
[2022-09-20] MEDS: ENOXAPARIN INJ 40 MG/0.4 ML SYR SQ SCH (20:58)
[2022-09-20] MEDS: MELATONIN 3 MG TAB PO SCH (21:00)
[2022-09-21] MEDS: LEVOTHYROXINE SODIUM 25 MCG TABLET PO SCH (06:20)
[2022-09-21] MEDS: CHOLECALCIFEROL 1,000 UNITS 25 MCG TAB PO SCH (11:38)
[2022-09-21] MEDS: ASPIRIN 81 MG ECTAB PO SCH (11:38)
[2022-09-21] MEDS: DORZOLAMIDE/TIMOLOL 22.3/6.8MG/ML 10 ML BTL OPB SCH ×2 (11:39→20:38)
[2022-09-21] MEDS: DONEPEZIL HCL 10 MG TAB PO SCH (11:39)
[2022-09-21] MEDS: LATANOPROST 0.005% OP SOLN 2.5 ML BTL OPB SCH (11:40)
[2022-09-21] MEDS: FINASTERIDE 5 MG TAB PO SCH (11:40)
[2022-09-21] MEDS: OLANZapine ZYDIS 5 MG ORALLY DIS. TAB PO SCH ×2 (11:41→20:35)
[2022-09-21] MEDS: MULTIVITAMIN TAB PO SCH (11:41)
[2022-09-21] MEDS: TAMSULOSIN HCL 0.4 MG CAP PO SCH (11:42)
[2022-09-21] MEDS: METOPROLOL TARTRATE 25 MG TAB PO SCH ×2 (14:53→22:12)
--- NOTE | 2022-09-21 15:42 | Hospitalist Progress Note ---
Date of Service September 21, 2022 Assessment & Plan (1) Pneumonia due to COVID-19 virus: Plan: Acute respiratory failure with hypoxia 2/2 covid 19 infection. Patient has clinically improved and is awaiting placement at this time. 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 (2) Delirium: Plan: - acute, metabolic encephalopathy Multifactorial, likely related to COVID, steroids, hospital stay on top of baseline dementia - Discontinued Decadron in the event it was contributory (ie steroid psychosis) - Per palliative care recommendation, switched Zyprexa from p.o, make it bid, add melatonin scheduled QHS; zypexa IM dose available prn for issues with agitation and combativeness - One to one removed on 09/15 -- no further combative issues (3) ANSHUL (acute kidney injury): Plan: acute resolved, ckd 3 is baseline (4) Urinary retention: Plan: Chronic and stable BPH- continue flomax + finasteride (5) Weakness: Plan: Acute metabolic encephalopathy secondary to COVID PT/OT --> recommending placement (6) 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 progressive family cannot care for him at home - per palliative care commendation, he has been restarted on zyprexa 5mg BID with prn dose ordered for acute combativeness (7) Metabolic encephalopathy: Plan: - Suspect secondary to COVID infection - CT head negative for intracranial pathology; structural etiology ruled out - Hospital-acquired delirium is probably playing a role as well, continue home aricept Plan VTE Prophylaxis - Lovenox 40mg SQ daily Code: DNR/DNI Admission and Anticipated Discharge Date Admission Date: September 02, 2022 Subjective Patient seems somewhat better with change of Respinol to twice daily from every morning Still mumbling but more awake, tends to sleep most of day but not trying to get oob Physical Exam Physical Exam: Patient awake tries to have conversations but does have some mumbling with his speech. Does reach and shake hands makes eye contact Cardiac exam is regular with a systolic murmur Lungs are clear. Family request attention to toenails these are NOT SIGNIFICANTLY and if patient is going to skilled facility may see podiatry they are welcome to have podiatry come to our facility if we can Results & Data Results & Data Vital Signs (Past 12 Hours) Vital Signs Temp Pulse Pulse Resp BP Pulse Ox O2 Del Method 09/21/22 14:29 97.9 F 62 17 117/72 95 Room Air 09/21/22 07:44 98.1 F 65 18 110/69 93 Room Air PG Care Time/CCT Total # of Minutes Spent Total Time Spent with Patient: Total time spent is greater than 50% in coordination of care (as documented) at patient's floor/unit and/or counseling patient: Coding Level of Care Code 22543 SUB INP/OBS CARE 07/15MIN Diagnoses Pneumonia due to COVID-19 virus U07.1; J12.82 Delirium R41.0 ANSHUL (acute kidney injury) N17.9 Urinary retention R33.9 Weakness R53.1 Dementia with aggressive behavior F03.91 Metabolic encephalopathy G93.41
[2022-09-21] MEDS: MELATONIN 3 MG TAB PO SCH (20:35)
[2022-09-21] MEDS: ENOXAPARIN INJ 40 MG/0.4 ML SYR SQ SCH (20:38)
[2022-09-22] MEDS: LEVOTHYROXINE SODIUM 25 MCG TABLET PO SCH (05:30)
[2022-09-22] MEDS: ASPIRIN 81 MG ECTAB PO SCH (08:41)
[2022-09-22] MEDS: CHOLECALCIFEROL 1,000 UNITS 25 MCG TAB PO SCH (08:41)
[2022-09-22] MEDS: DORZOLAMIDE/TIMOLOL 22.3/6.8MG/ML 10 ML BTL OPB SCH ×2 (08:42→20:03)
[2022-09-22] MEDS: FINASTERIDE 5 MG TAB PO SCH (08:43)
[2022-09-22] MEDS: LATANOPROST 0.005% OP SOLN 2.5 ML BTL OPB SCH (08:43)
[2022-09-22] MEDS: MULTIVITAMIN TAB PO SCH (08:45)
[2022-09-22] MEDS: METOPROLOL TARTRATE 25 MG TAB PO SCH ×2 (08:45→20:06)
[2022-09-22] MEDS: OLANZapine ZYDIS 5 MG ORALLY DIS. TAB PO SCH ×2 (08:46→20:05)
[2022-09-22] MEDS: TAMSULOSIN HCL 0.4 MG CAP PO SCH (08:46)
[2022-09-22] MEDS: DONEPEZIL HCL 10 MG TAB PO SCH (09:29)
[2022-09-22 10:53] LABS: Hematocrit (blood only) 42.2 % (42.0-52.0); Hemoglobin 14.9 g/dl (14.0-18.0); Mean Corpuscular Hgb Conc 35.3 g/dL (32.0-36.0); Mean Corpuscular Volume 87.9 fL (80.0-100.0); Mean Platelet Volume 11.5 fL (9.4-12.4); Platelet Count 211 K/uL (130-400); RDW Standard Deviation 41.4 fL (36.4-46.3); White Blood Count 6.51 K/ul (4.8-10.8)
[2022-09-22 11:15] LABS: BUN Creatinine Ratio 13.2 (10-20); Calcium 8.8 mg/dl (8.6-10.3); Creatinine Clr Calc Pharmacy 59.7 ml/min; Est GFR (African American) 68.1 ml/min; Est GFR (Non-African American) 58.7 ml/min; Potassium 3.8 mmol/L (3.5-5.1)
--- NOTE | 2022-09-22 17:08 | Hospitalist Progress Note ---
Date of Service September 22, 2022 Assessment & Plan (1) Pneumonia due to COVID-19 virus: Plan: Acute respiratory failure with hypoxia 2/2 covid 19 infection. Patient has clinically improved and is awaiting placement at this time. 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 (2) Delirium: Plan: - acute, metabolic encephalopathy Multifactorial, likely related to COVID, steroids, hospital stay on top of baseline dementia - Discontinued Decadron in the event it was contributory (ie steroid psychosis) - Per palliative care recommendation, switched Zyprexa from p.o, make it bid, add melatonin scheduled QHS; zypexa IM dose available prn for issues with agitation and combativeness - One to one removed on 09/15 -- no further combative issues, occasionally gets restless but not agitated or dangerous (3) ANSHUL (acute kidney injury): Plan: acute resolved, ckd 3 is baseline (4) Urinary retention: Plan: Chronic and stable BPH- continue flomax + finasteride (5) Weakness: Plan: Acute metabolic encephalopathy secondary to COVID PT/OT --> recommending placement (6) 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 progressive family cannot care for him at home - per palliative care commendation, he has been restarted on zyprexa 5mg BID with prn dose ordered for acute combativeness (7) Metabolic encephalopathy: Plan: - Suspect secondary to COVID infection - CT head negative for intracranial pathology; structural etiology ruled out - Hospital-acquired delirium is probably playing a role as well, continue home aricept Plan VTE Prophylaxis - Lovenox 40mg SQ daily Code: DNR/DNI Admission and Anticipated Discharge Date Admission Date: September 02, 2022 Subjective Patient seems somewhat better with change of Respinol to twice daily from every morning Still mumbling but more awake, tends to sleep most of day but not trying to get oob Physical Exam Physical Exam: Patient awake tries to have conversations but does have some mumbling with his speech. Does reach and shake hands makes eye contact Cardiac exam is regular with a systolic murmur Lungs are clear. Family request attention to toenails these are NOT SIGNIFICANTLY and if patient is going to skilled facility may see podiatry they are welcome to have podiatry come to our facility if we can Results & Data Results & Data Vital Signs (Past 12 Hours) Vital Signs Pulse Resp BP 09/22/22 07:36 57 L 18 151/83 H PG Care Time/CCT Total # of Minutes Spent Total Time Spent with Patient: Total time spent is greater than 50% in coordination of care (as documented) at patient's floor/unit and/or counseling patient: Coding Level of Care Code 95629 SUB INP/OBS CARE 07/15MIN Diagnoses Pneumonia due to COVID-19 virus U07.1; J12.82 Delirium R41.0 ANSHUL (acute kidney injury) N17.9 Urinary retention R33.9 Weakness R53.1 Dementia with aggressive behavior F03.91 Metabolic encephalopathy G93.41
[2022-09-22] MEDS: ENOXAPARIN INJ 40 MG/0.4 ML SYR SQ SCH (20:04)
[2022-09-22] MEDS: MELATONIN 3 MG TAB PO SCH (20:07)
[2022-09-23] MEDS: LEVOTHYROXINE SODIUM 25 MCG TABLET PO SCH (05:58)
--- NOTE | 2022-09-23 08:53 | Hospitalist Progress Note ---
Date of Service September 23, 2022 Assessment & Plan (1) Pneumonia due to COVID-19 virus: Plan: Acute respiratory failure with hypoxia 2/2 covid 19 infection. Patient has clinically improved and is awaiting placement at this time. 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 (2) Delirium: Plan: - acute, metabolic encephalopathy Multifactorial, likely related to COVID, steroids, hospital stay on top of baseline dementia - Discontinued Decadron in the event it was contributory (ie steroid psychosis) - Per palliative care recommendation, switched Zyprexa from p.o, make it bid, add melatonin scheduled QHS; zypexa IM dose available prn for issues with agitation and combativeness - One to one removed on 09/15 -- no further combative issues, occasionally gets restless but not agitated or dangerous (3) ANSHUL (acute kidney injury): Plan: acute resolved, ckd 3 is baseline (4) Urinary retention: Plan: Chronic and stable BPH- continue flomax + finasteride (5) Weakness: Plan: Acute metabolic encephalopathy secondary to COVID PT/OT --> recommending placement (6) 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 progressive family cannot care for him at home - per palliative care commendation, he has been restarted on zyprexa 5mg BID with prn dose ordered for acute combativeness (7) Metabolic encephalopathy: Plan: - Suspect secondary to COVID infection - CT head negative for intracranial pathology; structural etiology ruled out - Hospital-acquired delirium is probably playing a role as well, continue home aricept Plan VTE Prophylaxis - Lovenox 40mg SQ daily Code: DNR/DNI Admission and Anticipated Discharge Date Admission Date: September 02, 2022 Subjective Patient seems somewhat better with change of Respinol to twice daily from every morning Still mumbling but more awake, tends to sleep most of day but not trying to get oob feeding patients says mumbling is because he does not have his teeth, she took them home so as not to loose them Physical Exam Physical Exam: Patient is awake alert he is eating lunch he has no complaints looks to be in no distress cardiac exam is regular with a systolic murmur lungs are clear abdomen NABS extremities without edema he does have onchomycosis and is in need of toe nail care which hopefully can have done at the nursing facility Results & Data Results & Data Vital Signs (Past 12 Hours) Vital Signs Temp Pulse Resp BP Pulse Ox O2 Del Method 09/23/22 08:25 97.5 F L 65 20 111/66 96 Room Air PG Care Time/CCT Total # of Minutes Spent Total Time Spent with Patient: Total time spent is greater than 50% in coordination of care (as documented) at patient's floor/unit and/or counseling patient: Coding Level of Care Code 55444 SUB INP/OBS CARE 07/15MIN Diagnoses Pneumonia due to COVID-19 virus U07.1; J12.82 Delirium R41.0 ANSHUL (acute kidney injury) N17.9 Urinary retention R33.9 Weakness R53.1 Dementia with aggressive behavior F03.91 Metabolic encephalopathy G93.41
[2022-09-23] MEDS: ASPIRIN 81 MG ECTAB PO SCH (10:26)
[2022-09-23] MEDS: CHOLECALCIFEROL 1,000 UNITS 25 MCG TAB PO SCH (10:26)
[2022-09-23] MEDS: DORZOLAMIDE/TIMOLOL 22.3/6.8MG/ML 10 ML BTL OPB SCH ×2 (10:26→21:05)
[2022-09-23] MEDS: DONEPEZIL HCL 10 MG TAB PO SCH (10:27)
[2022-09-23] MEDS: LATANOPROST 0.005% OP SOLN 2.5 ML BTL OPB SCH (10:28)
[2022-09-23] MEDS: FINASTERIDE 5 MG TAB PO SCH (10:28)
[2022-09-23] MEDS: METOPROLOL TARTRATE 25 MG TAB PO SCH ×2 (10:29→21:06)
[2022-09-23] MEDS: MULTIVITAMIN TAB PO SCH (10:30)
[2022-09-23] MEDS: OLANZapine ZYDIS 5 MG ORALLY DIS. TAB PO SCH ×2 (10:31→21:06)
[2022-09-23] MEDS: TAMSULOSIN HCL 0.4 MG CAP PO SCH (10:31)
[2022-09-23] MEDS: ENOXAPARIN INJ 40 MG/0.4 ML SYR SQ SCH (21:05)
[2022-09-23] MEDS: MELATONIN 3 MG TAB PO SCH (21:09)
[2022-09-24] MEDS: LEVOTHYROXINE SODIUM 25 MCG TABLET PO SCH (06:12)
[2022-09-24] MEDS: DONEPEZIL HCL 10 MG TAB PO SCH (07:49)
[2022-09-24] MEDS: MULTIVITAMIN TAB PO SCH (07:49)
[2022-09-24] MEDS: FINASTERIDE 5 MG TAB PO SCH (07:50)
[2022-09-24] MEDS: TAMSULOSIN HCL 0.4 MG CAP PO SCH (07:50)
[2022-09-24] MEDS: ASPIRIN 81 MG ECTAB PO SCH (07:50)
[2022-09-24] MEDS: OLANZapine ZYDIS 5 MG ORALLY DIS. TAB PO SCH ×2 (07:50→21:19)
[2022-09-24] MEDS: CHOLECALCIFEROL 1,000 UNITS 25 MCG TAB PO SCH (07:50)
[2022-09-24] MEDS: METOPROLOL TARTRATE 25 MG TAB PO SCH ×2 (07:50→21:18)
[2022-09-24] MEDS: DORZOLAMIDE/TIMOLOL 22.3/6.8MG/ML 10 ML BTL OPB SCH ×2 (07:52→21:18)
[2022-09-24] MEDS: LATANOPROST 0.005% OP SOLN 2.5 ML BTL OPB SCH (07:52)
[2022-09-24] MEDS: ENOXAPARIN INJ 40 MG/0.4 ML SYR SQ SCH (21:18)
[2022-09-24] MEDS: MELATONIN 3 MG TAB PO SCH (21:19)
--- NOTE | 2022-09-24 22:27 | Hospitalist Progress Note ---
Date of Service September 24, 2022 Assessment & Plan (1) Pneumonia due to COVID-19 virus: Plan: Acute respiratory failure with hypoxia 2/2 covid 19 infection. Patient has clinically improved and is awaiting placement at this time. 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 (2) Delirium: Plan: - acute, metabolic encephalopathy Multifactorial, likely related to COVID, steroids, hospital stay on top of baseline dementia - Discontinued Decadron in the event it was contributory (ie steroid psychosis) - Per palliative care recommendation, switched Zyprexa from p.o, make it bid, add melatonin scheduled QHS; zypexa IM dose available prn for issues with agitation and combativeness - One to one removed on 09/15 -- no further combative issues, occasionally gets restless but not agitated or dangerous (3) ANSHUL (acute kidney injury): Plan: acute resolved, ckd 3 is baseline (4) Urinary retention: Plan: Chronic and stable BPH- continue flomax + finasteride (5) Weakness: Plan: Acute metabolic encephalopathy secondary to COVID PT/OT --> recommending placement (6) 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 progressive family cannot care for him at home - per palliative care commendation, he has been restarted on zyprexa 5mg BID with prn dose ordered for acute combativeness (7) Metabolic encephalopathy: Plan: - Suspect secondary to COVID infection - CT head negative for intracranial pathology; structural etiology ruled out - Hospital-acquired delirium is probably playing a role as well, continue home aricept Plan VTE Prophylaxis - Lovenox 40mg SQ daily Code: DNR/DNI Admission and Anticipated Discharge Date Admission Date: September 02, 2022 Subjective Patient is calm lying in bed. Review of Systems Review of Systems: Unobtainable due to cognitive status Physical Exam Physical Exam: General: Awake, cooperative, mumbling Heart: S1, S2/regular rate and rhythm, no murmur rubs or gallops Lungs: Clear to auscultation bilaterally. Normal effort Abdomen: Soft/nontender/nondistended. No hepatosplenomegaly Extremities: No clubbing/cyanosis. No edema Behavior: Cooperative Results & Data Results & Data Vital Signs (Past 12 Hours) Vital Signs Temp Pulse Pulse Resp BP BP Pulse Ox 09/24/22 21:33 36.5 C 96 H 16 132/77 94 09/24/22 21:13 36.8 C 103 H 20 128/71 95 09/24/22 15:40 37.6 C H 85 20 118/88 94 09/24/22 11:08 36.4 C L 70 18 118/64 96 O2 Del Method 09/24/22 21:33 Room Air 09/24/22 21:13 Room Air 09/24/22 15:40 Room Air 09/24/22 11:08 Room Air PG Care Time/CCT Total # of Minutes Spent Total Time Spent with Patient: Total time spent is greater than 50% in coordination of care (as documented) at patient's floor/unit and/or counseling patient: Coding Level of Care Code 83091 SUB INP/OBS CARE 2/35MIN Diagnoses Pneumonia due to COVID-19 virus U07.1; J12.82 Delirium R41.0 ANSHUL (acute kidney injury) N17.9 Urinary retention R33.9 Weakness R53.1 Dementia with aggressive behavior F03.91 Metabolic encephalopathy G93.41
[2022-09-25] MEDS: LEVOTHYROXINE SODIUM 25 MCG TABLET PO SCH (06:06)
[2022-09-25] MEDS: MULTIVITAMIN TAB PO SCH (08:30)
[2022-09-25] MEDS: METOPROLOL TARTRATE 25 MG TAB PO SCH ×2 (08:30→20:38)
[2022-09-25] MEDS: FINASTERIDE 5 MG TAB PO SCH (08:31)
[2022-09-25] MEDS: OLANZapine ZYDIS 5 MG ORALLY DIS. TAB PO SCH ×2 (08:31→20:38)
[2022-09-25] MEDS: TAMSULOSIN HCL 0.4 MG CAP PO SCH (08:31)
[2022-09-25] MEDS: ASPIRIN 81 MG ECTAB PO SCH (08:31)
[2022-09-25] MEDS: DONEPEZIL HCL 10 MG TAB PO SCH (08:31)
[2022-09-25] MEDS: CHOLECALCIFEROL 1,000 UNITS 25 MCG TAB PO SCH (08:31)
[2022-09-25] MEDS: DORZOLAMIDE/TIMOLOL 22.3/6.8MG/ML 10 ML BTL OPB SCH ×2 (08:32→20:36)
[2022-09-25] MEDS: LATANOPROST 0.005% OP SOLN 2.5 ML BTL OPB SCH (08:32)
[2022-09-25] MEDS: ENOXAPARIN INJ 40 MG/0.4 ML SYR SQ SCH (20:36)
[2022-09-25] MEDS: MELATONIN 3 MG TAB PO SCH (20:37)
--- NOTE | 2022-09-25 22:34 | Hospitalist Progress Note ---
Date of Service September 25, 2022 Assessment & Plan (1) Pneumonia due to COVID-19 virus: Plan: Acute respiratory failure with hypoxia 2/2 covid 19 infection. Patient has clinically improved and is awaiting placement at this time. 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 Awaiting placement. reviewed previous notes (2) Delirium: Plan: - acute, metabolic encephalopathy Multifactorial, likely related to COVID, steroids, hospital stay on top of baseline dementia - Discontinued Decadron in the event it was contributory (ie steroid psychosis) - Per palliative care recommendation, switched Zyprexa from p.o, make it bid, add melatonin scheduled QHS; zypexa IM dose available prn for issues with agitation and combativeness - One to one removed on 09/15 -- no further combative issues, occasionally gets restless but not agitated or dangerous (3) ANSHUL (acute kidney injury): Plan: acute resolved, ckd 3 is baseline (4) Urinary retention: Plan: Chronic and stable BPH- continue flomax + finasteride (5) Weakness: Plan: Acute metabolic encephalopathy secondary to COVID PT/OT --> recommending placement (6) 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 progressive family cannot care for him at home - per palliative care commendation, he has been restarted on zyprexa 5mg BID with prn dose ordered for acute combativeness (7) Metabolic encephalopathy: Plan: - Suspect secondary to COVID infection - CT head negative for intracranial pathology; structural etiology ruled out - Hospital-acquired delirium is probably playing a role as well, continue home aricept Plan VTE Prophylaxis - Lovenox 40mg SQ daily Code: DNR/DNI Admission and Anticipated Discharge Date Admission Date: September 02, 2022 Subjective Patient is calm. In no distress Review of Systems Review of Systems: All systems reviewed & are unremarkable except as noted in HPI & below Physical Exam Physical Exam: General: Awake, cooperative, mumbling Heart: S1, S2/regular rate and rhythm, no murmur rubs or gallops Lungs: Clear to auscultation bilaterally. Normal effort Abdomen: Soft/nontender/nondistended. No hepatosplenomegaly Extremities: No clubbing/cyanosis. No edema Behavior: Cooperative Constitutional: well developed; + not well nourished and no acute distress Eyes: PERRL, conjunctivae normal, anicteric sclerae Respiratory: normal respiratory effort; no respiratory distress Auscultation: breath sounds present, no diminished lung sounds and no wheezes Cardiovascular: RRR, no murmur, no edema Gastrointestinal (Abdomen): normal bowel sounds, soft, nontender, no hepatosplenomegaly Musculoskeletal: no cyanosis or clubbing, extremities motor strength 5/5 Skin: Trauma: + evidence of skin trauma (mild lacerations on b/l lower extremities without surrounding cellulitis) Neurologic: moves all extremities and awake; not confused Psychiatric: Orientation: alert; + not oriented x 3 Thought Process: + incoherent thought process Genitourinary: no CVA tenderness Results & Data Results & Data Vital Signs (Past 12 Hours) Vital Signs Temp Pulse Pulse Resp BP BP BP 09/25/22 19:20 09/25/22 20:30 37 C 90 14 109/71 09/25/22 15:43 37.0 C 70 18 138/67 09/25/22 10:35 37.2 C 65 18 120/67 Pulse Ox O2 Del Method 09/25/22 19:20 Room Air 09/25/22 20:30 97 Room Air 09/25/22 15:43 95 Room Air 09/25/22 10:35 93 Room Air PG Care Time/CCT Total # of Minutes Spent Total Time Spent with Patient: Total time spent is greater than 50% in coordination of care (as documented) at patient's floor/unit and/or counseling patient: Coding Level of Care Code 31408 SUB INP/OBS CARE 2/35MIN Diagnoses Pneumonia due to COVID-19 virus U07.1; J12.82 Delirium R41.0 ANSHUL (acute kidney injury) N17.9 Urinary retention R33.9 Weakness R53.1 Dementia with aggressive behavior F03.91 Metabolic encephalopathy G93.41
[2022-09-26] MEDS: LEVOTHYROXINE SODIUM 25 MCG TABLET PO SCH (05:32)
[2022-09-26] MEDS: METOPROLOL TARTRATE 25 MG TAB PO SCH ×2 (08:46→19:41)
[2022-09-26] MEDS: OLANZapine ZYDIS 5 MG ORALLY DIS. TAB PO SCH ×2 (08:46→19:42)
[2022-09-26] MEDS: CHOLECALCIFEROL 1,000 UNITS 25 MCG TAB PO SCH (08:47)
[2022-09-26] MEDS: TAMSULOSIN HCL 0.4 MG CAP PO SCH (08:47)
[2022-09-26] MEDS: LATANOPROST 0.005% OP SOLN 2.5 ML BTL OPB SCH (08:47)
[2022-09-26] MEDS: DONEPEZIL HCL 10 MG TAB PO SCH (08:47)
[2022-09-26] MEDS: ASPIRIN 81 MG ECTAB PO SCH (08:47)
[2022-09-26] MEDS: MULTIVITAMIN TAB PO SCH (08:47)
[2022-09-26] MEDS: DORZOLAMIDE/TIMOLOL 22.3/6.8MG/ML 10 ML BTL OPB SCH ×2 (08:47→19:40)
[2022-09-26] MEDS: FINASTERIDE 5 MG TAB PO SCH (08:47)
--- NOTE | 2022-09-26 09:10 | Hospitalist Progress Note ---
Date of Service September 26, 2022 Assessment & Plan (1) Pneumonia due to COVID-19 virus: Plan: Acute respiratory failure with hypoxia 2/2 covid 19 infection. Patient has clinically improved and is awaiting placement at this time. 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 Awaiting placement. reviewed previous notes, reviewed vitals Patient remains on room air on 09/26 (2) Delirium: Plan: - acute, metabolic encephalopathy Multifactorial, likely related to COVID, steroids, hospital stay on top of baseline dementia - Discontinued Decadron in the event it was contributory (ie steroid psychosis) - Per palliative care recommendation, switched Zyprexa from p.o, make it bid, add melatonin scheduled QHS; zypexa IM dose available prn for issues with agitation and combativeness - One to one removed on 09/15 -- no further combative issues, occasionally gets restless but not agitated or dangerous (3) ANSHUL (acute kidney injury): Plan: acute resolved, ckd 3 is baseline (4) Urinary retention: Plan: Chronic and stable BPH- continue flomax + finasteride (5) Weakness: Plan: Acute metabolic encephalopathy secondary to COVID PT/OT --> recommending placement (6) 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 progressive family cannot care for him at home - per palliative care commendation, he has been restarted on zyprexa 5mg BID with prn dose ordered for acute combativeness (7) Metabolic encephalopathy: Plan: - Suspect secondary to COVID infection - CT head negative for intracranial pathology; structural etiology ruled out - Hospital-acquired delirium is probably playing a role as well, continue home aricept Plan VTE Prophylaxis - Lovenox 40mg SQ daily Code: DNR/DNI Admission and Anticipated Discharge Date Admission Date: September 02, 2022 Subjective Patient does not respond to questions. [place] He calmly ate his breakfast with assistance. Review of Systems Review of Systems: Unobtainable due to cognitive status Physical Exam Physical Exam: General: Awake, cooperative, mumbling Heart: S1, S2/regular rate and rhythm, no murmur rubs or gallops Lungs: Clear to auscultation bilaterally. Normal effort Abdomen: Soft/nontender/nondistended. No hepatosplenomegaly Extremities: No clubbing/cyanosis. No edema Behavior: Cooperative Results & Data Results & Data Vital Signs (Past 12 Hours) Vital Signs Temp Pulse Resp BP Pulse Ox O2 Del Method 09/26/22 07:30 36.8 C 96 H 18 111/73 94 Room Air 09/25/22 23:10 37 C 84 18 114/66 94 Room Air PG Care Time/CCT Total # of Minutes Spent Total Time Spent with Patient: Total time spent is greater than 50% in coordination of care (as documented) at patient's floor/unit and/or counseling patient: Coding Level of Care Code 73292 SUB INP/OBS CARE 2/35MIN Diagnoses Pneumonia due to COVID-19 virus U07.1; J12.82 Delirium R41.0 ANSHUL (acute kidney injury) N17.9 Urinary retention R33.9 Weakness R53.1 Dementia with aggressive behavior F03.91 Metabolic encephalopathy G93.41
[2022-09-26] MEDS: ENOXAPARIN INJ 40 MG/0.4 ML SYR SQ SCH (19:40)
[2022-09-26] MEDS: MELATONIN 3 MG TAB PO SCH (19:40)
[2022-09-27] MEDS: LEVOTHYROXINE SODIUM 25 MCG TABLET PO SCH (05:35)
[2022-09-27] MEDS: TAMSULOSIN HCL 0.4 MG CAP PO SCH (08:37)
[2022-09-27] MEDS: METOPROLOL TARTRATE 25 MG TAB PO SCH ×2 (08:38→20:43)
[2022-09-27] MEDS: CHOLECALCIFEROL 1,000 UNITS 25 MCG TAB PO SCH (08:38)
[2022-09-27] MEDS: MULTIVITAMIN TAB PO SCH (08:38)
[2022-09-27] MEDS: OLANZapine ZYDIS 5 MG ORALLY DIS. TAB PO SCH ×2 (08:39→20:43)
[2022-09-27] MEDS: FINASTERIDE 5 MG TAB PO SCH (08:40)
[2022-09-27] MEDS: DONEPEZIL HCL 10 MG TAB PO SCH (08:40)
[2022-09-27] MEDS: ASPIRIN 81 MG ECTAB PO SCH (08:40)
[2022-09-27] MEDS: LATANOPROST 0.005% OP SOLN 2.5 ML BTL OPB SCH (08:41)
[2022-09-27] MEDS: DORZOLAMIDE/TIMOLOL 22.3/6.8MG/ML 10 ML BTL OPB SCH ×2 (08:41→20:42)
[2022-09-27] MEDS: ENOXAPARIN INJ 40 MG/0.4 ML SYR SQ SCH (20:42)
[2022-09-27] MEDS: MELATONIN 3 MG TAB PO SCH (20:46)
--- NOTE | 2022-09-27 22:50 | Hospitalist Progress Note ---
Date of Service September 27, 2022 Assessment & Plan (1) Pneumonia due to COVID-19 virus: Plan: Acute respiratory failure with hypoxia 2/2 covid 19 infection. Patient has clinically improved and is awaiting placement at this time. 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 Awaiting placement. reviewed previous notes, reviewed vitals Patient remains on room air on 09/27 updated at bedside. (2) Delirium: Plan: - acute, metabolic encephalopathy Multifactorial, likely related to COVID, steroids, hospital stay on top of baseline dementia - Discontinued Decadron in the event it was contributory (ie steroid psychosis) - Per palliative care recommendation, switched Zyprexa from p.o, make it bid, add melatonin scheduled QHS; zypexa IM dose available prn for issues with agitation and combativeness - One to one removed on 09/15 -- no further combative issues, occasionally gets restless but not agitated or dangerous (3) ANSHUL (acute kidney injury): Plan: acute resolved, ckd 3 is baseline (4) Urinary retention: Plan: Chronic and stable BPH- continue flomax + finasteride (5) Weakness: Plan: Acute metabolic encephalopathy secondary to COVID PT/OT --> recommending placement (6) 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 progressive family cannot care for him at home - per palliative care commendation, he has been restarted on zyprexa 5mg BID with prn dose ordered for acute combativeness (7) Metabolic encephalopathy: Plan: - Suspect secondary to COVID infection - CT head negative for intracranial pathology; structural etiology ruled out - Hospital-acquired delirium is probably playing a role as well, continue home aricept Plan VTE Prophylaxis - Lovenox 40mg SQ daily Code: DNR/DNI Admission and Anticipated Discharge Date Admission Date: September 02, 2022 Subjective 86 yo male is lying in bed with no acute distress. Review of Systems Review of Systems: All systems reviewed & are unremarkable except as noted in HPI & below Physical Exam Physical Exam: General: Awake, cooperative, mumbling Heart: S1, S2/regular rate and rhythm, no murmur rubs or gallops Lungs: Clear to auscultation bilaterally. Normal effort Abdomen: Soft/nontender/nondistended. No hepatosplenomegaly Extremities: No clubbing/cyanosis. No edema Behavior: Cooperative Results & Data Results & Data Vital Signs (Past 12 Hours) Vital Signs Temp Pulse Pulse Resp BP BP Pulse Ox 09/27/22 20:50 09/27/22 20:37 36.8 C 99 H 18 101/71 96 09/27/22 15:46 111/64 09/27/22 14:20 36.7 C 82 17 107/64 95 O2 Del Method 09/27/22 20:50 Room Air 09/27/22 20:37 Room Air 09/27/22 15:46 09/27/22 14:20 Room Air PG Care Time/CCT Total # of Minutes Spent Total Time Spent with Patient: Total time spent is greater than 50% in coordination of care (as documented) at patient's floor/unit and/or counseling patient: Coding Level of Care Code 57227 SUB INP/OBS CARE 2/35MIN Diagnoses Pneumonia due to COVID-19 virus U07.1; J12.82 Delirium R41.0 ANSHUL (acute kidney injury) N17.9 Urinary retention R33.9 Weakness R53.1 Dementia with aggressive behavior F03.91 Metabolic encephalopathy G93.41
[2022-09-28] MEDS: LEVOTHYROXINE SODIUM 25 MCG TABLET PO SCH (06:21)
[2022-09-28] MEDS: TAMSULOSIN HCL 0.4 MG CAP PO SCH (08:22)
[2022-09-28] MEDS: FINASTERIDE 5 MG TAB PO SCH (08:22)
[2022-09-28] MEDS: ASPIRIN 81 MG ECTAB PO SCH (08:22)
[2022-09-28] MEDS: MULTIVITAMIN TAB PO SCH (08:22)
[2022-09-28] MEDS: DONEPEZIL HCL 10 MG TAB PO SCH (08:22)
[2022-09-28] MEDS: OLANZapine ZYDIS 5 MG ORALLY DIS. TAB PO SCH ×2 (08:22→22:44)
[2022-09-28] MEDS: CHOLECALCIFEROL 1,000 UNITS 25 MCG TAB PO SCH (08:23)
[2022-09-28] MEDS: METOPROLOL TARTRATE 25 MG TAB PO SCH ×2 (08:23→22:46)
[2022-09-28] MEDS: LATANOPROST 0.005% OP SOLN 2.5 ML BTL OPB SCH (08:24)
[2022-09-28] MEDS: DORZOLAMIDE/TIMOLOL 22.3/6.8MG/ML 10 ML BTL OPB SCH ×2 (08:24→22:42)
--- NOTE | 2022-09-28 22:10 | Hospitalist Progress Note ---
Date of Service September 28, 2022 Assessment & Plan (1) Pneumonia due to COVID-19 virus: Plan: Acute respiratory failure with hypoxia 2/2 covid 19 infection. Patient has clinically improved and is awaiting placement at this time. 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 Awaiting placement. reviewed previous notes, reviewed vitals Patient remains on room air on 09/28 (2) Delirium: Plan: - acute, metabolic encephalopathy Multifactorial, likely related to COVID, steroids, hospital stay on top of baseline dementia - Discontinued Decadron in the event it was contributory (ie steroid psychosis) - Per palliative care recommendation, switched Zyprexa from p.o, make it bid, add melatonin scheduled QHS; zypexa IM dose available prn for issues with agitation and combativeness - One to one removed on 09/15 -- no further combative issues, occasionally gets restless but not agitated or dangerous (3) ANSHUL (acute kidney injury): Plan: acute resolved, ckd 3 is baseline (4) Urinary retention: Plan: Chronic and stable BPH- continue flomax + finasteride (5) Weakness: Plan: Acute metabolic encephalopathy secondary to COVID PT/OT --> recommending placement (6) 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 progressive family cannot care for him at home - per palliative care commendation, he has been restarted on zyprexa 5mg BID with prn dose ordered for acute combativeness (7) Metabolic encephalopathy: Plan: - Suspect secondary to COVID infection - CT head negative for intracranial pathology; structural etiology ruled out - Hospital-acquired delirium is probably playing a role as well, continue home aricept Plan VTE Prophylaxis - Lovenox 40mg SQ daily Code: DNR/DNI Admission and Anticipated Discharge Date Admission Date: September 02, 2022 Subjective 86 yo male reports no new symptoms. Review of Systems Review of Systems: All systems reviewed & are unremarkable except as noted in HPI & below Physical Exam Physical Exam: General: Awake, cooperative, mumbling Heart: S1, S2/regular rate and rhythm, no murmur rubs or gallops Lungs: Clear to auscultation bilaterally. Normal effort Abdomen: Soft/nontender/nondistended. No hepatosplenomegaly Extremities: No clubbing/cyanosis. No edema Behavior: Cooperative Results & Data Results & Data Vital Signs (Past 12 Hours) Vital Signs Temp Pulse Resp BP BP Pulse Ox O2 Del Method 09/28/22 16:21 37.2 C 101/61 09/28/22 15:37 36.2 C L 87 18 93/62 L 94 Room Air PG Care Time/CCT Total # of Minutes Spent Total Time Spent with Patient: Total time spent is greater than 50% in coordination of care (as documented) at patient's floor/unit and/or counseling patient: Coding Level of Care Code 61568 SUB INP/OBS CARE 2/35MIN Diagnoses Pneumonia due to COVID-19 virus U07.1; J12.82 Delirium R41.0 ANSHUL (acute kidney injury) N17.9 Urinary retention R33.9 Weakness R53.1 Dementia with aggressive behavior F03.91 Metabolic encephalopathy G93.41
[2022-09-28] MEDS: ENOXAPARIN INJ 40 MG/0.4 ML SYR SQ SCH (22:43)
[2022-09-28] MEDS: MELATONIN 3 MG TAB PO SCH (22:48)
[2022-09-29] MEDS: LEVOTHYROXINE SODIUM 25 MCG TABLET PO SCH (05:54)
[2022-09-29] MEDS: ASPIRIN 81 MG ECTAB PO SCH (08:54)
[2022-09-29] MEDS: FINASTERIDE 5 MG TAB PO SCH (08:54)
[2022-09-29] MEDS: TAMSULOSIN HCL 0.4 MG CAP PO SCH (08:54)
[2022-09-29] MEDS: CHOLECALCIFEROL 1,000 UNITS 25 MCG TAB PO SCH (08:54)
[2022-09-29] MEDS: MULTIVITAMIN TAB PO SCH (08:54)
[2022-09-29] MEDS: OLANZapine ZYDIS 5 MG ORALLY DIS. TAB PO SCH (08:54)
[2022-09-29] MEDS: METOPROLOL TARTRATE 25 MG TAB PO SCH (08:54)
[2022-09-29] MEDS: DONEPEZIL HCL 10 MG TAB PO SCH (08:56)
[2022-09-29] MEDS: DORZOLAMIDE/TIMOLOL 22.3/6.8MG/ML 10 ML BTL OPB SCH (08:58)
[2022-09-29] MEDS: LATANOPROST 0.005% OP SOLN 2.5 ML BTL OPB SCH (08:58)
--- NOTE | 2022-09-29 10:04 | Discharge Summary ---
Date of Service September 29, 2022 Admission HPI Per Admitting Provider Shamir Castañeda is an 86 year old male with dementia who presents to the ER with altered mental state. Unable to get any history from the patient due to underlying dementia. He says words but not making sentences or any sense. His reports he started having upper respiratory symptoms with nasal congestion, cough and shortness of breath 2 days ago. She is also having flu-like symptoms and is on antibiotics from her PCP. No known fever, chills, sinus pain, chest pain, abdominal pain or diarrhea. He has baseline dementia but much more confused today with generalized weakness meant he slid out of his recliner ryanne mendenhall. On discussion with his and daughter over the phone they wish him to be full code at this time. In the ER SARS-COV-2 PCR was positive. He was referred to medicine for admission and ongoing management for altered mental state, pneumonia and COVID. Discharge Data Allergies Allergy/AdvReac Type Severity Reaction Status Date / Time prednisone Allergy Mild Agitated Verified 09/01/22 17:51 Consultations 09/01/22 18:09 ED Decision to Admit Stat 09/04/22 08:29 Consult Palliative Care Routine Ordered Studies 09/01/22 16:20 CT head/brain wo con Stat Discharge Plan Discharge Items Patient Disposition: Transfer [facility] Reason For Visit: COVID-19 Discharge Diagnosis: covid 19 Condition on Discharge: Fair Activity: Resume your previous activity Non-emergency contact: Primary Care Provider Call non-emergency contact if: you have any medication questions Follow-up/Referrals: Yuni Elmore CRNP [Primary Care Provider] - Diet: Regular Diet Comment: minced and moist Addtl Attending Provider Instructions: You have been hospitalized for an acute medical problem. During your stay at [facility], we have made an effort to correct the problem that brought you to the hospital while keeping you as comfortable as possible. Medications were used to bring your condition under control and your discharge instructions will include directions for any medications you should take after leaving the hospital. Please make sure you see your Primary Care Provider as part of your follow up plan. Pending Studies at Discharge: No Stand-Alone Forms: My [facility] Skilled Items Patient informed of condition?: No DNR: Yes Discharge Level of Care: Skilled Communicable Disease: No Discharge Prognosis: Stable Lines: None Urinary Catheter: No Medications and DC Order Prescriptions: New Paxlovid (EUA) 150-100 mg tablets,dose pack See Rx Instructions .ROUTE .COMPLEX Qty: 20 0RF Rx Instructions: take ONE 150 mg tablet of nirmatrelvir with ONE 100 mg tablet of ritonavir twice daily for 5 days melatonin 3 mg Tablet 3 mg PO HS Qty: 30 0RF olanzapine 5 mg Tablet,Disintegrating 5 mg PO BID Qty: 60 0RF Continued levothyroxine [Synthroid] 25 mcg tablet 25 mcg PO DAILY Qty: 30 11RF finasteride [Proscar] 5 mg tablet 5 mg PO DAILY Qty: 90 3RF tamsulosin 0.4 mg capsule 0.4 mg PO HS Qty: 90 3RF multivitamin Tablet 1 tab PO DAILY ergocalciferol (vitamin D2) [Vitamin D2] 50,000 unit Capsule 2,000 unit PO DAILY latanoprost 0.005 % drops 1 drp OPB DAILY aspirin [Aspir-Low] 81 mg Tablet,Delayed Release (Dr/Ec) 81 mg PO DAILY dorzolamide-timolol 22.3-6.8 mg/mL drops 1 drp OPB BID donepezil 10 mg tablet 10 mg PO DAILY metoprolol tartrate 25 mg tablet 12.5 mg PO BID Discontinued lorazepam 0.5 mg tablet 0.5 mg PO DIRECTED Discharge Orders: Discharge Order (Routine); Ordered 09/29/22 Ordered By: Hai Gregorio Admission Data Admit Date/Time: 09/02/22 14:25 Attending Provider: Hai Gregorio Admit Provider: Alfredo Jaimes Primary Care Provider: Yuni Elmore Other Providers: Alfredo Jaimes ; [place] ; Tanya Floyd [facility] ; [facility], ; Beatriec Haines Coding Diagnoses
== END 2022-09-29 11:56 | DRG 177 ==
LOC: 3N 16:11 → ED 16:11 → SUATTDRO 18:53 → 3N 21:22 → SUATTDRO 09-02 14:25 → 3N 09-12 15:15